=== PATIENT | female | born 1940 | race Two or more races ===

== ENCOUNTER 2024-02-15 12:06 | Emergency (ER) | payer MEDICAID, SELFPAY ==
[2024-02-15 12:07] VITALS: BMI 30.5
--- NOTE | 2024-02-15 12:46 | PC.NURSE ---
Pt was called from the lobby and the front of the ER for initial vitals. NAx1 at 1245.
--- NOTE | 2024-02-15 14:37 | PC.NURSE ---
PT DID NOT ANSWER WHEN NAME WAS CALLED AND WAS NOT FOUND OUTSIDE
--- NOTE | 2024-02-15 15:23 | PC.NURSE ---
PT WAS CALLED IN LOBBY AND OUTSIDE AND NO ANSWER X3.
--- NOTE | 2024-02-16 03:47 | PD.EDADDENDU ---
Emergency Room Addendum Addendum Narrative: Pt eloped prior to being seen by me.
== END 2024-02-15 15:23 | disposition left against medical advice (07) ==
PROVIDERS: Emergency Provider Internal Medicine Critical Care Medicine
DX: Z53.21 Procedure and treatment not carried out due to patient leaving prior to being seen by health care provider (principal)

== ENCOUNTER 2024-06-13 13:58 | Emergency (ER) | payer MEDICARE, MEDICAID, SELFPAY ==
[2024-06-13 14:02] VITALS: BP 136/57; PULSE 99; RESP 16; TEMP 36.7; O2SAT 95
--- NOTE | 2024-06-13 14:09 | PC.NURSE ---
SANDI from home for generalized weakness. She had a GLF 10 days ago and hit her head on coffee table (denies LOC) did not got to hospital for the fall. She has been weak for 2 days with lack of appetite, she states she doesn't have a cough but does cough at times and is productive per EMS. She also has had a right side facial droop x3 weeks PMH: bells palsy HTN, CHF, frequent UTIs EMS Vitals: GCS 15 108 HR 125/64 99 O2 sats on room air 20 RR
[2024-06-13 14:29] VITALS: PULSE 108; RESP 20; BMI 27.4
[2024-06-13] MEDS: SODIUM CHLORIDE 0.9% 500 ML 500 ML 999 ML IV ×2 (15:07→17:08)
[2024-06-13] MEDS: ONDANSETRON INJ 2 MG/ML INJ 2 ML 4 MG IV (15:08)
[2024-06-13 16:02] VITALS: BP 128/66; PULSE 89; RESP 21; TEMP 37; O2SAT 97
[2024-06-13 16:02] LABS: Basophils % (Auto) 0 % (0-2.5); Eosinophils # (Auto) 0.2 Thou/mm3 (0.0-0.5); Eosinophils % (Auto) 2 % (0-10); Hematocrit 36.1 % (36.0-46.0); Hemoglobin 12.5 g/dL (12.0-16.0); Immature Granulocytes % (Auto) 0 % (0-0); Immature Granulocytes Auto 0.04 Thou/mm3 (0.00-0.00); Lymphocytes # (Auto) 1.4 Thou/mm3 (1.0-4.8); Lymphocytes % (Auto) 14 % (10-50); Mean Corpuscular HGB Conc 34.6 g/dl (31.0-37.0); Mean Corpuscular Hemoglobin 31.8 pg (25.0-35.0); Mean Corpuscular Volume 92 fL (80-100); Monocytes # (Auto) 0.7 Thou/mm3 (0.0-0.8); Monocytes % (Auto) 8 % (0-12); Neutrophils # (Auto) 7.3 Thou/mm3 (1.8-7.7); Neutrophils % (Auto) 76 % (37-80); Nucleated Red Blood Cell % 0 /100 WBC (0); Platelet Count 186 Thou/mm3 (140-440); RDW Standard Deviation 41.5 fL (36.4-46.3); Red Blood Count 3.93 Miln/mm3 (4.00-5.20); White Blood Count 9.6 Thou/mm3 (3.6-11.0)
[2024-06-13 16:27] LABS: Alanine Aminotransferase 14 U/L (10-49); Albumin, Serum 3.6 gm/dL (3.4-4.8); Albumin/Globulin Ratio 1.6 (1.2-2.2); Alkaline Phosphatase 83 U/L (46-116); Anion Gap 10 (7-16); Aspartate Amino Transferase 25 U/L (0-34); BUN/Creatinine Ratio 52 Ratio (12-20); Bilirubin,Total 2.2 mg/dL (0.3-1.2); Blood Urea Nitrogen 57 mg/dL (9-23); Calcium 8.7 mg/dL (8.3-10.6); Chloride 100 mMol/L (98-107); Creatinine (Component) 1.1 mg/dL (0.6-1.3); Estimated Creatinine Clearance 38.5 mL/min (>60); Globulin 2.3 gm/dL (2.3-3.5); Glucose 108 mg/dL (74-106); Osmolality,Calculated 299 (275-295); Sodium 142 mMol/L (136-145); Total Protein 5.9 gm/dL (5.7-8.2); eGFR 50 See Note
[2024-06-13 16:33] LABS: Potassium 2.6 mMol/L (3.4-5.1)
[2024-06-13 16:52] LABS: Collection Type, Urine Clean Catch
[2024-06-13 17:03] LABS: Bacteria,Urine 4+; Bilirubin,Urine Negative (Negative); Blood,Urine 1+ (Negative); Color,Urine Yellow (Lt Yel-Yel); Glucose, Urine Negative (Negative); Ketones,Urine Negative (Negative); Leukocyte Esterase,Urine Positive (Negative); Nitrite,Urine Negative (Negative); Protein,Urine Trace (Neg - Trace); RBC,Urine 7 /hpf (0-3); Specific Gravity,Urine 1.016 (1.001-1.035); Squamous Epithelial Cell,Urine 4 /hpf (0-5); WBC,Urine 18 /hpf (0-5)
[2024-06-13 17:04] LABS: Clarity,Urine Hazy (Clear/Hazy)
[2024-06-13] MEDS: POTASSIUM CHLORIDE 20 mEq TABCR 60 MEQ PO (17:07)
[2024-06-13 17:22] LABS: Magnesium 1.8 mg/dL (1.6-2.6)
[2024-06-13 18:14] VITALS: BP 119/67; PULSE 91; RESP 16; TEMP 36.6; O2SAT 94
[2024-06-13] MEDS: cefTRIAXone/D5w 1gm IV premix 50 ML IV (18:30)
--- NOTE | 2024-06-27 03:28 | PD.EDADULT ---
ED General RME/HPI General Chief complaint: General Adult/Misc Complain Stated complaint: GENERALIZED WEAKNESS Time Seen by Provider: 06/13/24 14:32 Arrival date/time: 06/13/24 13:58 RME / HPI RME / HPI narrative: 83-year-old female with history of frequent UTIs who presents to the emergency department with generalized weakness for the last 2 days. She denies fevers chills or sweats. She notes mild nausea without vomiting. She denies diarrhea. She denies dysuria, polyuria or hematuria. She has a chronic cough that is unchanged. She denies sick contact. Patient denies chest pain or shortness of breath. Related Data Home Medications ?Medication ?Instructions ?Recorded ?Confirmed amlodipine 10 mg tablet 10 mg PO DAILY 10/20/21 02/21/24 lisinopril 40 mg tablet 40 mg PO DAILY 10/20/21 02/21/24 ondansetron 4 mg disintegrating 4 mg PO [id number] PRN nausea and 02/21/24 02/21/24 tablet vomiting Previous Rx's ?Medication ?Instructions ?Recorded cetirizine 10 mg tablet 10 mg PO QDAY PRN cough or allergy 03/01/24 symptoms #30 tabs guaifenesin 600 mg tablet, 600 mg PO Q12H PRN cough #30 tabs 03/01/24 extended release 12 hr (Mucinex) cephalexin 500 mg capsule 500 mg PO Q8H #20 caps 06/13/24 ondansetron 4 mg disintegrating 4 mg PO Q8H PRN nausea and 06/13/24 tablet vomiting #10 tabs Allergies Allergy/AdvReac Type Severity Reaction Status Date / Time No Known Allergies Allergy Verified 02/15/24 12:10 Review of Systems Review of Systems Systems Reviewed: All systems reviewed, normal except as documented ED Exam Narrative Physical exam: GENERAL APPEARANCE: AxOx4, generally well-appearing, no acute distress. HEENT: NC, AT. MMM. EOMI, clear conjunctiva, oropharynx clear. NECK: Supple without lymphadenopathy. No stiffness or restricted ROM. HEART: Normal rate and regular rhythm, normal S1/S1, no m/r/g LUNGS: CTAB, moving air well. No crackles or wheezes are heard. ABDOMEN: Soft, nontender, nondistended with good bowel sounds heard. BACK: No midline C/T/L spine pain or deformity, No CVAT, no obvious deformity. EXTREMITIES: Without cyanosis, clubbing or edema. MUSCULOSKELETAL: FROM of all major joints, no chest tenderness NEUROLOGICAL: Grossly nonfocal. Alert and oriented, moving all 4 extremities. CN not formally tested but appear grossly intact. Observed to ambulate with normal gait. Skin: Warm and dry without any rash. Course Quality Measures none Orders Category Date Time Status CBC Stat Lab 06/13/24 15:25 Completed CMP [Comprehensive Metabolic Panel] Stat Lab 06/13/24 15:25 Completed Magnesium Stat Lab 06/13/24 15:25 Completed Urinalysis Stat Lab 06/13/24 16:18 Completed Ondansetron Inj [Zofran Inj] Med 06/13/24 14:49 Discontinued 4 mg IV X1 ONE Potassium Chloride [K-Dur] Med 06/13/24 16:51 Discontinued 60 meq PO X1 ONE Sodium Chloride 0.9% 500 ml [Ns] 500 ml Med 06/13/24 14:49 Discontinued IV 999 mls/hr Sodium Chloride 0.9% 500 ml [Ns] 500 ml Med 06/13/24 16:51 Discontinued IV 999 mls/hr cefTRIAXone/D5w 1gm IV premix [Rocephin/D5w 1gm IV Med 06/13/24 17:39 Discontinued premix] 50 ml IV X1 Vital Signs Vital signs: Vital Signs Temperature 98.0 F 06/13/24 14:02 Pulse Rate 99 06/13/24 14:02 Respiratory Rate 16 06/13/24 14:02 Blood Pressure 136/57 H 06/13/24 14:02 Pulse Oximetry (%) 95 06/13/24 14:02 Oxygen Delivery Method Room Air 06/13/24 14:02 SpO2 95% on room air, patient is not MDM Patient data External records reviewed:: [facility] previous records Clinical information provided by:: patient Social determinants that could affect healthcare access:: none Patient has the following chronic illnesses:: None How is presenting disease/condition affected by chronic disease/condition?: no chronic disease Evaluation data The following diagnostics were reviewed and interpreted by me:: lab results Lab and/or radiology exams considered but not ordered:: None Interpretation Summary: As per narrative Medications Medications considered but not ordered:: None Medication administrations:: Medication Administration History Discontinued Medications Sodium Chloride (Ns) 500 mls @ 999 mls/hr IV .Q31M ONE Stop: 06/13/24 15:19 Last Infusion: 06/13/24 16:16 Dose: Infused Documented By: FRANCISCO J Admin: 06/13/24 15:07 Dose: 999 mls/hr Documented By: Sodium Chloride (Ns) 500 mls @ 999 mls/hr IV .Q31M ONE Stop: 06/13/24 17:21 Last Admin: 06/13/24 17:08 Dose: 999 mls/hr Documented By: FRANCISCO J Ceftriaxone Sodium/Dextrose (Rocephin/D5w 1gm Iv Premix) 50 mls @ 100 mls/hr IV X1 ONE Stop: 06/13/24 18:08 Last Infusion: 06/13/24 19:33 Dose: Infused Documented By: FRANCISCO J Admin: 06/13/24 18:30 Dose: 100 mls/hr Documented By: FRANCISCO J Ondansetron HCl (Ondansetron Inj 2 Mg/Ml Inj 2 Ml) 4 mg IV X1 ONE; Protocol Stop: 06/13/24 14:50 Last Admin: 06/13/24 15:08 Dose: 4 mg Documented By: FRANCISCO J Potassium Chloride (Potassium Chloride 20 Meq Tabcr) 60 meq PO X1 ONE Stop: 06/13/24 16:52 Last Admin: 06/13/24 17:07 Dose: 60 meq Documented By: FRANCISCO J Above Consultations Consultation(s) initiated? (list below): No Diagnosis Differential Diagnosis ED Complaint MDM: Dehydration, acute kidney injury, electrolyte abnormalities, UTI Most likely diagnosis given after review of the tests above:: See below Admission Indicated Admission indicated?: not indicated Explain why admission is indicated or not indicated:: As per narrative Admission Request Was there a request for admission?: No Disposition Plan Disposition Plan: Discharge Discharge Attestation Discharge Attestation: The patient and all family members were given an opportunity to ask questions and understood the discharge instructions. Discharge instructions specifically effects, indications for sooner follow up or return to the emergency department, and the expected course of current diagnosis. Patient condition: Stable Medical Decision Making MDM Narrative MDM Narrative: Ms. Bauer is a clinically well-appearing female with stable vital signs presents with generalized weakness. She does have a history of frequent UTIs without overt urinary symptoms. Given her generalized weakness laboratory testing was sent to assess for possible anemia, electrolyte abnormalities, dehydration, or UTI. Labs are significant for a moderate hypokalemia which required oral repletion here in the emergency department. Urinalysis shows 4+ bacteria and pyuria which should be consistent with a UTI. I suspect her generalized weakness is a combination of her hypokalemia and her urinary tract infection. Patient was given IV fluids in the emergency department and first dose of antibiotics for urinary tract infection. She remained clinically stable here in the emergency department, resting comfortably with stable vital signs are appropriate for outpatient treatment and close follow-up. Differential Diagnosis Differential Diagnosis: Dehydration, acute kidney injury, electrolyte abnormalities, UTI Lab Data 06/13/24 15:25 06/13/24 15:25 Labs: Lab Results 06/13/24 06/13/24 Range/Units 15:25 16:18 WBC 9.6 (3.6-11.0) Thou/mm3 RBC 3.93 L (4.00-5.20) Miln/mm3 Hgb 12.5 (12.0-16.0) g/dL Hct 36.1 (36.0-46.0) % MCV 92 (80-100) fL MCH 31.8 (25.0-35.0) pg MCHC 34.6 (31.0-37.0) g/dl RDW Std Deviation 41.5 (36.4-46.3) fL Plt Count 186 (140-440) Thou/mm3 Neut % (Auto) 76 (37-80) % Lymph % (Auto) 14 (10-50) % [place] % (Auto) 8 (0-12) % Eos % (Auto) 2 (0-10) % Baso % (Auto) 0 (0-2.5) % Neut # (Auto) 7.3 (1.8-7.7) Thou/mm3 Lymph # (Auto) 1.4 (1.0-4.8) Thou/mm3 [place] # (Auto) 0.7 (0.0-0.8) Thou/mm3 Eos # (Auto) 0.2 (0.0-0.5) Thou/mm3 Baso # (Auto) 0.0 (0.0-0.2) Thou/mm3 Immature Gran # (Auto) 0.04 H (0.00-0.00) Thou/mm3 Absolute Nucleated RBC 0.00 (0.00-0.00) Thou/mm3 Immature Gran % 0 (0-0) % Nucleated RBC % 0 (0) /100 WBC Sodium 142 (136-145) mMol/L Potassium 2.6 L* (3.4-5.1) mMol/L Chloride 100 (98-107) mMol/L Carbon Dioxide 32.0 H (20.0-31.0) mMol/L Anion Gap 10 (7-16) BUN 57 H (9-23) mg/dL Creatinine 1.1 (0.6-1.3) mg/dL Estim Creat Clear Calc 38.5 L (>60) mL/min eGFR 50 L (60 - ) See Note BUN/Creatinine Ratio 52 H (12-20) Ratio Glucose 108 H (74-106) mg/dL Calculated Osmolality 299 H (275-295) Calcium 8.7 (8.3-10.6) mg/dL Corrected Calcium 9.0 (8.5-10.1) mg/dL Magnesium 1.8 (1.6-2.6) mg/dL Total Bilirubin 2.2 H (0.3-1.2) mg/dL AST 25 (0-34) U/L ALT 14 (10-49) U/L Alkaline Phosphatase 83 (46-116) U/L Total Protein 5.9 (5.7-8.2) gm/dL Albumin 3.6 (3.4-4.8) gm/dL Globulin 2.3 (2.3-3.5) gm/dL Albumin/Globulin Ratio 1.6 (1.2-2.2) Ur Collection Type Clean Catch Urine Color Yellow (Lt Yel-Yel) Urine Clarity Hazy (Clear/Hazy) Urine pH 6.0 (5.0-7.0) Ur Specific [place] 1.016 (1.001-1.035) Urine Protein Trace (Neg - Trace) Urine Glucose (UA) Negative (Negative) Urine Ketones Negative (Negative) Urine Blood 1+ A (Negative) Urine Nitrite Negative (Negative) Urine Bilirubin Negative (Negative) Urine Urobilinogen (Auto) 2.0 (0.0-1.0) mg/dL Ur Leukocyte Esterase Positive (Negative) Urine RBC 7 H (0-3) /hpf Urine WBC 18 H (0-5) /hpf Ur Squamous Epith Cells 4 (0-5) /hpf Urine Bacteria 4+ A (None) Discharge Plan Plan Patient Disposition: HOME (Self Care) Prescriptions/Referrals Prescriptions/Med Rec: New cephalexin 500 mg capsule 500 mg PO Q8H Qty: 20 0RF ondansetron 4 mg tablet,disintegrating 4 mg PO Q8H PRN (Reason: nausea and vomiting) Qty: 10 0RF No Action amlodipine 10 mg tablet 10 mg PO DAILY Patient Comments: TAKE 1 TABLET BY MOUTH DAILY lisinopril 40 mg tablet 40 mg PO DAILY Hold Instructions: Resume on 03/04/24. Hold until follow up with PCP Patient Comments: TAKE 1 TABLET BY MOUTH EVERY MORNING ondansetron 4 mg tablet,disintegrating 4 mg PO [id number] PRN (Reason: nausea and vomiting) cetirizine 10 mg tablet 10 mg PO QDAY PRN (Reason: cough or allergy symptoms) Qty: 30 0RF guaifenesin [Mucinex] 600 mg tablet extended release 12hr 600 mg PO Q12H PRN (Reason: cough) Qty: 30 0RF Referrals: Kurt Woody MD [Primary Care Provider] - In 1 week Problem List Clinical Impression: Acute UTI, Dehydration Patient/Caregiver Discharge Instructions Education Materials: ED CYSTITIS Female Adult Additional Instructions: Follow-up with your primary care doctor in 2 to 3 days for recheck. You can return to the emergency department sooner if symptoms worsen or if you notice any new, concerning issues. Print Language: Japanese Stand Alone Forms: [facility] Info., Patient Portal Info Letter
== END 2024-06-13 19:36 | disposition home or self-care (01) ==
PROVIDERS: Emergency Provider Emergency Medicine; PCP Family Medicine
DX: E86.0 Dehydration (principal); N39.0 Urinary tract infection, site not specified
CPT/HCPCS: 36415; 80053; 81001; 83735; 85025; 96361; 96365; 96375; 99284; J0696; J2405; J7040; A9270

== ENCOUNTER 2024-09-04 21:29 | Emergency (ER) | payer MEDICARE, MEDICAID, SELFPAY ==
[2024-09-04 21:37] VITALS: PULSE 65; RESP 16; O2SAT 94; BMI 25.4
[2024-09-04 21:39] VITALS: BP 157/81; PULSE 101; RESP 18; TEMP 37.1; O2SAT 94; BMI 25.7
--- NOTE | 2024-09-04 21:47 | PD.EDURI ---
Upper Respiratory Inf. RME/HPI General Chief Complaint: Flu Like Symptoms Stated Complaint: ILLNESS/WEAKNESS Time Seen by Provider: 09/04/24 21:46 Arrival date/time: 09/04/24 21:29 RME / HPI RME / HPI Narrative: This section includes all my notes and documentations, including HPI, PE, and ED course. Scar Ramsey MD HPI: 84-year-old female here with about a week history of worsening cough, productive cough, purulent sputum, and dyspnea. With subjective fever and chills and bodyaches and malaise. No chest pain. No other complaints. ROS: All negative except as documented in HPI. Physical Exam: General: Alert and oriented. Hacking cough noted. Eyes: Conjunctivae and lids clear. ENT: No nasal congestion. Neck: Supple. Heart: RRR. Lungs: No respiratory distress. Moderately decreased air movement with bilateral rhonchi and bilateral rails. Abdomen: Soft and nontender. Back: No CVA tenderness. Skin: Warm and dry. Neuro: Alert and oriented X 3. I reviewed all diagnostic test results. My interpretation of the chest x-ray is bilateral infiltrates. Blood tests and urine tests remarkable for BNP 617. COVID/influenza negative. At this point, diagnoses include pneumonia with acute bronchospasm and CHF. Treatment here included Solu-Medrol, DuoNeb, Lasix, morphine, Zofran, IV fluid, Rocephin, and Zithromax. Significant improvement noted. Recommended a trial of outpatient treatment. Based on my best medical judgment, made decision no further evaluation or treatment indicated at this time. Patient understands and agrees to the discharge instructions customized and printed, see below. Discharge instructions from Dr. Ramsey: --No physical exertion for 3 days to help rest the lungs. ?No smoking or exposure to smoking or pets or dust or cold air. --Zithromax and cefdinir to kill the germs causing the pneumonia. --Prednisone to help decrease the swelling in the airways. --Albuterol 2 puffs every 4-6 hours today and tomorrow to help keep the airways open. Then as needed for cough or shortness of breath. --Maximum 4 cups of any fluid per 24 hours for 3 full days. For the fluid in your lungs. --See a private doctor on 09/07/2024 for recheck and further care. Ask for help until you are completely better. --Seek immediate medical care with worsening or with any concerns. Instrucciones de casey del Dr. Ramsey: -- No realice esfuerzo f?sico sachin 3 d?as para ayudar a los pulmones a descansar. -- No fume ni se exponga al humo, a mascotas, al polvo ni al aire fr?o. -- Zitromax y cefdinir para eliminar los g?rmenes que causan la neumon?a. -- Prednisona para ayudar a disminuir la inflamaci?n de las v?as respiratorias. -- Albuterol: 2 inhalaciones cada 4 a 6 horas hoy y ma?silvana para ayudar a mantener las v?as respiratorias abiertas. Luego, seg?n sea necesario para la tos o la dificultad para respirar. -- M?ximo 4 vasos de cualquier l?quido cada 24 horas sachin 3 d?as completos. Para el l?quido en los pulmones. -- Consulte con un m?dico particular el 07/09/2024 para angelina revisi?n y cuidados adicionales. [place] ayuda hasta que se recupere por completo. -- Busque atenci?n m?dica inmediata si king estado empeora o tiene alguna inquietud. Scar Ramsey MD Related Data Home Medications ?Medication ?Instructions ?Recorded ?Confirmed amlodipine 10 mg tablet 10 mg PO DAILY 10/20/21 02/21/24 lisinopril 40 mg tablet 40 mg PO DAILY 10/20/21 02/21/24 Held on 02/26/24. Instructions: Resume on 03/04/24. Hold until follow up with PCP ondansetron 4 mg disintegrating 4 mg PO [id number] PRN nausea and 02/21/24 02/21/24 tablet vomiting Previous Rx's ?Medication ?Instructions ?Recorded cetirizine 10 mg tablet 10 mg PO QDAY PRN cough or allergy 03/01/24 symptoms #30 tabs guaifenesin 600 mg tablet, 600 mg PO Q12H PRN cough #30 tabs 03/01/24 extended release 12 hr (Mucinex) cephalexin 500 mg capsule 500 mg PO Q8H #20 caps 06/13/24 ondansetron 4 mg disintegrating 4 mg PO Q8H PRN nausea and 06/13/24 tablet vomiting #10 tabs albuterol sulfate 90 mcg/actuation 2 puff inhalation Q6H PRN 09/05/24 aerosol inhaler shortness of breath or wheezing #8.5 grams cefdinir 300 mg capsule 300 mg PO BID #14 caps 09/05/24 prednisone 50 mg tablet 50 mg PO QDAY #3 tabs 09/05/24 Allergies Allergy/AdvReac Type Severity Reaction Status Date / Time No Known Allergies Allergy Verified 02/15/24 12:10 Course Quality Measures none Orders Category Date Time Status Bedside COVID-19 Antigen Test NOW Care 09/04/24 21:51 Completed Bedside Influenza A&B Antigen Test NOW Care 09/04/24 21:51 Completed Saline [Insert IV] NOW Care 09/04/24 21:51 Completed Straight [In and Out Catheter] X1 Care 09/04/24 21:51 Completed XR chest 1V portable Stat Exams 09/04/24 21:51 Completed Amylase Stat Lab 09/04/24 22:16 Completed BNP [B-Type Natriuretic Peptide] Stat Lab 09/04/24 22:35 Completed CBC Stat Lab 09/04/24 22:16 Completed CMP [Comprehensive Metabolic Panel] Stat Lab 09/04/24 22:16 Completed Lipase Stat Lab 09/04/24 22:16 Completed Magnesium Stat Lab 09/04/24 22:16 Completed UA, C/S IF [Urinalysis, C/S if Indicated] Stat Lab 09/04/24 22:40 Completed Albuterol/Ipratr Rt Ciarra [Duoneb Rt Ciarra] Med 09/04/24 21:51 Discontinued 3 ml INH X1 ONE Azithromycin Inj [Zithromax Inj] 500 mg Med 09/04/24 23:50 Discontinued Sodium Chloride 0.9% 250 ml [Ns] 250 ml IV X1 Azithromycin Po [Zithromax PO] Med 09/05/24 01:10 Discontinued 500 mg PO X1 ONE Furosemide Inj [Lasix Inj] Med 09/05/24 01:03 Discontinued 40 mg IVP X1 ONE MethylPREDNISolone.* [SoluMEDROL Inj] Med 09/04/24 21:51 Discontinued 125 mg IVP X1 ONE Morphine Inj Med 09/04/24 21:51 Discontinued 2 mg IVP X1 ONE Ondansetron Inj [Zofran Inj] Med 09/04/24 21:51 Discontinued 4 mg IV X1 ONE Sodium Chloride 0.9% 1000 ml [Ns] 1,000 ml Med 09/04/24 21:51 Discontinued IV 999 mls/hr cefTRIAXone [Rocephin] 1,000 mg Med 09/04/24 23:50 Discontinued SODIUM CHLORIDE 0.9% (Popper) [Ns 0.9% (P)] 50 ml IV X1 Vital Signs Vital signs: Vital Signs Temperature 98.7 F 09/04/24 21:39 Pulse Rate 101 H 09/04/24 21:39 Respiratory Rate 18 09/04/24 21:39 Blood Pressure 157/81 H 09/04/24 21:39 Pulse Oximetry (%) 94 L 09/04/24 21:39 Oxygen Delivery Method Room Air 09/04/24 21:39 Upper Respiratory Infection Patient data External records reviewed:: [facility] previous records Clinical information provided by:: patient Social determinants that could affect healthcare access:: none Patient has the following chronic illnesses:: CHF How is presenting disease/condition affected by chronic disease/condition?: exacerbated by Evaluation data The following diagnostics were reviewed and interpreted by me:: lab results and radiology exam(s) Lab and/or radiology exams considered but not ordered:: None Interpretation Summary: Pneumonia Medications / Prescriptions Medications or Prescriptions considered but not ordered:: None Medication administrations:: Medication Administration History Discontinued Medications Albuterol/Ipratropium (Albuterol/Ipratropium (Duoneb) Rt Ciarra 3 Ml Nebu) 3 ml INH X1 ONE Stop: 09/04/24 21:52 Last Admin: 09/04/24 22:15 Dose: 3 ml Documented By: TMH Azithromycin (Azithromycin 250 Mg Tablet) 500 mg PO X1 ONE Stop: 09/05/24 01:11 Last Admin: 09/05/24 01:19 Dose: 500 mg Documented By: CCT Furosemide (Furosemide Inj 10 Mg/Ml 4ml Vial) 40 mg IVP X1 ONE Stop: 09/05/24 01:04 Last Admin: 09/05/24 01:19 Dose: 40 mg Documented By: CCT Sodium Chloride (Ns) 1,000 mls @ 999 mls/hr IV .Q1H1M ONE Stop: 09/04/24 22:51 Last Admin: 09/04/24 22:41 Dose: Not Given Documented By: EE Non-Admin Reason: Cancelled by Provider Ceftriaxone Sodium 1,000 mg/ (Sodium Chloride) 50 mls @ 100 mls/hr IV X1 ONE Stop: 09/05/24 00:19 Last Infusion: 09/05/24 01:05 Dose: Infused Documented By: Admin: 09/05/24 00:34 Dose: 100 mls/hr Documented By: CCT Azithromycin 500 mg/ Sodium (Chloride) 250 mls @ 250 mls/hr IV X1 ONE Stop: 09/05/24 00:49 Last Admin: 09/05/24 01:13 Dose: Not Given Documented By: CCT Non-Admin Reason: Cancelled by Provider Methylprednisolone Sodium Succinate (Methylprednisolone Sod Succ 62.5 Mg/Ml 2ml Vial) 125 mg IVP X1 ONE Stop: 09/04/24 21:52 Last Admin: 09/04/24 22:42 Dose: 125 mg Documented By: EE Morphine Sulfate (Morphine Sulf Inj 10 Mg/Ml Vial) 2 mg IVP X1 ONE Stop: 09/04/24 21:52 Last Admin: 09/04/24 22:43 Dose: 2 mg Documented By: EE Ondansetron HCl (Ondansetron Inj 2 Mg/Ml Inj 2 Ml) 4 mg IV X1 ONE; Protocol Stop: 09/04/24 21:52 Last Admin: 09/04/24 22:42 Dose: 4 mg Documented By: EE Treatment here included Solu-Medrol, DuoNeb, Lasix, morphine, Zofran, IV fluid, Rocephin, and Zithromax. Consultations Consultation(s) initiated? (list below): No Diagnosis Upper Respiratory Differential Diagnosis: upper respiratory infection, sinusitis, viral infection, bronchitis, influenza and other (COVID, influenza, CHF, pneumonia) Most likely diagnosis given after review of the tests above:: Pneumonia Admission Indicated Admission indicated?: not indicated Explain why admission is indicated or not indicated:: With significant improvement, there was no indication for admission. Admission Request Was there a request for admission?: No Disposition Plan Disposition Plan: Discharge Discharge Attestation Discharge Attestation: The patient and all family members were given an opportunity to ask questions and understood the discharge instructions. Discharge instructions specifically effects, indications for sooner follow up or return to the emergency department, and the expected course of current diagnosis. Patient condition: Stable Discharge Plan Plan Patient Disposition: HOME (Self Care) Prescriptions/Referrals Prescriptions/Med Rec: New prednisone 50 mg tablet 50 mg PO QDAY Qty: 3 0RF albuterol sulfate 90 mcg/actuation HFA aerosol inhaler 2 puff inhalation Q6H PRN (Reason: shortness of breath or wheezing) Qty: 8.5 0RF cefdinir 300 mg capsule 300 mg PO BID Qty: 14 0RF No Action amlodipine 10 mg tablet 10 mg PO DAILY Patient Comments: TAKE 1 TABLET BY MOUTH DAILY lisinopril 40 mg tablet 40 mg PO DAILY Patient Comments: TAKE 1 TABLET BY MOUTH EVERY MORNING ondansetron 4 mg tablet,disintegrating 4 mg PO [id number] PRN (Reason: nausea and vomiting) cetirizine 10 mg tablet 10 mg PO QDAY PRN (Reason: cough or allergy symptoms) Qty: 30 0RF guaifenesin [Mucinex] 600 mg tablet extended release 12hr 600 mg PO Q12H PRN (Reason: cough) Qty: 30 0RF cephalexin 500 mg capsule 500 mg PO Q8H Qty: 20 0RF ondansetron 4 mg tablet,disintegrating 4 mg PO Q8H PRN (Reason: nausea and vomiting) Qty: 10 0RF Referrals: Kurt Woody MD [Primary Care Provider] - In 1 week Problem List Clinical Impression: Pneumonia Patient/Caregiver Discharge Instructions Discharge Activity: activity as tolerated Education Materials: ED Pneumonia (Adult) Additional Instructions: Discharge instructions from Dr. Ramsey: --No physical exertion for 3 days to help rest the lungs. ?No smoking or exposure to smoking or pets or dust or cold air. --Zithromax and cefdinir to kill the germs causing the pneumonia. --Prednisone to help decrease the swelling in the airways. --Albuterol 2 puffs every 4-6 hours today and tomorrow to help keep the airways open. Then as needed for cough or shortness of breath. --Maximum 4 cups of any fluid per 24 hours for 3 full days. For the fluid in your lungs. --See a private doctor on 09/07/2024 for recheck and further care. Ask for help until you are completely better. --Seek immediate medical care with worsening or with any concerns. Instrucciones de casey del Dr. Ramsey: -- No realice esfuerzo f?sico sachin 3 d?as para ayudar a los pulmones a descansar. -- No fume ni se exponga al humo, a mascotas, al polvo ni al aire fr?o. -- Zitromax y cefdinir para eliminar los g?rmenes que causan la neumon?a. -- Prednisona para ayudar a disminuir la inflamaci?n de las v?as respiratorias. -- Albuterol: 2 inhalaciones cada 4 a 6 horas hoy y ma?silvana para ayudar a mantener las v?as respiratorias abiertas. Luego, seg?n sea necesario para la tos o la dificultad para respirar. -- M?ximo 4 vasos de cualquier l?quido cada 24 horas sachin 3 d?as completos. Para el l?quido en los pulmones. -- Consulte con un m?dico particular el 07/09/2024 para angelina revisi?n y cuidados adicionales. [place] ayuda hasta que se recupere por completo. -- Busque atenci?n m?dica inmediata si king estado empeora o tiene alguna inquietud. Print Language: Faroese Stand Alone Forms: [facility] Award Info., Patient Portal Info Letter
--- NOTE | 2024-09-04 21:51 | XR_ITS ---
Examination: AP chest single view TECHNIQUE: AP portable upright chest single view Standing time: September 04, 2024 0907 hours INDICATIONS: Shortness of breath today. FINDINGS: Mild prominence left ventricle Prominent vascular congestion Bibasilar pneumonia The osseous structures are intact with small probable granulomas in the upper lung zones IMPRESSION: Mild heart failure Mild bibasilar pneumonia
[2024-09-04] MEDS: ALBUTEROL/IPRATROPIUM (Duoneb) RT SOL 3 ML NEBU INH (22:15)
[2024-09-04 22:16] VITALS: PULSE 102; RESP 18; O2SAT 98
[2024-09-04 22:28] LABS: Basophils % (Auto) 0 % (0-2.5); Eosinophils % (Auto) 0 % (0-10); Hematocrit 33.5 % (36.0-46.0); Hemoglobin 11.4 g/dL (12.0-16.0); Immature Granulocytes % (Auto) 1 % (0-0); Lymphocytes # (Auto) 1.4 Thou/mm3 (1.0-4.8); Lymphocytes % (Auto) 15 % (10-50); Mean Corpuscular Hemoglobin 31.8 pg (25.0-35.0); Mean Corpuscular Volume 94 fL (80-100); Monocytes # (Auto) 1.2 Thou/mm3 (0.0-0.8); Monocytes % (Auto) 13 % (0-12); Neutrophils # (Auto) 6.6 Thou/mm3 (1.8-7.7); Neutrophils % (Auto) 71 % (37-80); Nucleated Red Blood Cell % 0 /100 WBC (0); Platelet Count 227 Thou/mm3 (140-440); RDW Standard Deviation 45.6 fL (36.4-46.3); Red Blood Count 3.58 Miln/mm3 (4.00-5.20); White Blood Count 9.3 Thou/mm3 (3.6-11.0)
[2024-09-04] MEDS: MethylPREDNISolone SOD SUCC 62.5 MG/ML 2ML VIAL 125 MG IVP (22:42)
[2024-09-04] MEDS: ONDANSETRON INJ 2 MG/ML INJ 2 ML 4 MG IV (22:42)
[2024-09-04] MEDS: MORPHINE SULF INJ 10 MG/ML VIAL 2 MG IVP (22:43)
[2024-09-04 22:47] VITALS: BP 170/103; PULSE 100; RESP 19; TEMP 36.4; O2SAT 94
[2024-09-04 22:55] LABS: Collection Type, Urine Clean Catch
[2024-09-04 23:03] LABS: Alanine Aminotransferase 8 U/L (10-49); Albumin, Serum 3.7 gm/dL (3.4-4.8); Albumin/Globulin Ratio 1.4 (1.2-2.2); Alkaline Phosphatase 81 U/L (46-116); Amylase 54 U/L (30-118); Anion Gap 11 (7-16); Aspartate Amino Transferase 22 U/L (0-34); BUN/Creatinine Ratio 37 Ratio (12-20); Bilirubin,Total 1.4 mg/dL (0.3-1.2); Blood Urea Nitrogen 41 mg/dL (9-23); Calcium 9.3 mg/dL (8.3-10.6); Calcium (Corrected) 9.5 mg/dL (8.5-10.1); Carbon Dioxide 26.9 mMol/L (20.0-31.0); Chloride 104 mMol/L (98-107); Creatinine (Component) 1.1 mg/dL (0.6-1.3); Estimated Creatinine Clearance 36.7 mL/min (>60); Globulin 2.6 gm/dL (2.3-3.5); Glucose 116 mg/dL (74-106); Lipase 34 U/L (12-53); Magnesium 1.9 mg/dL (1.6-2.6); Osmolality,Calculated 294 (275-295); Potassium 3.7 mMol/L (3.4-5.1); Sodium 142 mMol/L (136-145); Total Protein 6.3 gm/dL (5.7-8.2); eGFR 50 See Note
[2024-09-04 23:05] LABS: Bilirubin,Urine Negative (Negative); Blood,Urine 3+ (Negative); Clarity,Urine Clear (Clear/Hazy); Color,Urine Yellow (Lt Yel-Yel); Culture Indicated,Urine Not Indicated; Glucose, Urine Negative (Negative); Ketones,Urine Negative (Negative); Leukocyte Esterase,Urine Negative (Negative); Nitrite,Urine Negative (Negative); PH,Urine 5.5 (5.0-7.0); Protein,Urine 2+ (Neg - Trace); RBC,Urine 65 /hpf (0-3); Specific Gravity,Urine 1.019 (1.001-1.035); Squamous Epithelial Cell,Urine < 1 /hpf (0-5); Urobilinogen,Urine Negative mg/dL (0.0-1.0); WBC,Urine 3 /hpf (0-5)
[2024-09-05] VITALS: BP 153/75; PULSE 96; RESP 20; TEMP 36.6; O2SAT 94
[2024-09-05 00:28] LABS: B-Type Natriuretic Peptide 617 pg/mL (0-100)
[2024-09-05] MEDS: cefTRIAXone 1,000 MG in SODIUM CHLORIDE 0.9% (Popper) 50 ML 100 MG IV (00:34)
[2024-09-05 01:19] VITALS: BP 158/83; PULSE 99
[2024-09-05] MEDS: FUROSEMIDE INJ 10 MG/ML 4ML VIAL 40 MG IVP (01:19)
[2024-09-05] MEDS: AZITHROMYCIN 250 MG TABLET 500 MG PO (01:19)
[2024-09-05 01:35] VITALS: BP 153/78; PULSE 97; RESP 20; TEMP 36.6; O2SAT 94
== END 2024-09-05 01:35 | disposition home or self-care (01) ==
PROVIDERS: Emergency Provider Emergency Medicine; PCP Family Medicine
DX: J18.9 Pneumonia, unspecified organism (principal)
CPT/HCPCS: 51701; 36415; 71045; 80053; 81001; 82150; 83690; 83735; 83880; 85025; 87400; 87811; 94640; 96365; 96375; 99284; A9270; J0696; J1940; J2270; J2405; J2919; J7050

== ENCOUNTER 2024-10-25 18:58 | Inpatient (IN) | payer MEDICARE, MEDICAID, SELFPAY ==
[2024-10-25 19:04] VITALS: BP 96/56; PULSE 66; RESP 16; TEMP 36.4; O2SAT 96
--- NOTE | 2024-10-25 19:04 | XR_ITS ---
Examination: CT brain head without contrast. 2-D sagittal coronal reconstructions Date and time of exam:October 25, 2024 1931 hours INDICATIONS: Ground-level fall today with injury to the head head pain CTDI: vol (mGy):52 DLP: (mGycm):1080 Technique: Multiple CT axial sections of the brain have been obtained, 5 mm slice thickness. Contrast has not been administered. 2-D sagittal, coronal reconstructions have been obtained Low dose protocols were performed. One or more of the following dose reduction techniques were used; automated exposure control, adjustment of the mA and/or KV according to patient size, use of iterative reconstruction technique. Findings: No significant ventricular enlargement. Intra-axial or extra-axial hemorrhage density is not seen. No mass effect or midline shift Basal cisterns are not remarkable. Fourth ventricle is midline. Cranial vault intact. Impression: Negative for acute hemorrhage, mass effect or midline shift
--- NOTE | 2024-10-25 19:04 | XR_ITS ---
Examination: CT cervical spine without contrast 2-D sagittal reconstructions 2-D coronal reconstructions 3-D reconstructions. Exam date and time:October 25, 2024 1931 hours INDICATIONS: Ground-level fall today with injury to the neck, neck pain CTDI:vol (mGy) 8.12 DLP: (mGycm) 160 Technique: Multiple 2 mm axial sections of the cervical spine have been obtained. The coronal and sagittal reconstructions have been obtained. 3-D reconstructions have been obtained. Low dose protocols were performed. One or more of the following dose reduction techniques were used; automated exposure control, adjustment of the mA and/or KV according to patient size, use of iterative reconstruction technique. Findings: Axial sections demonstrate intact base of the skull. C1 exhibit satisfactory relationship to the odontoid. No acute cervical vertebral body fracture seen. Alignment posterior spinous processes satisfactory. Impression: No acute cervical fracture.
--- NOTE | 2024-10-25 19:05 | EDNOTE_ITS ---
ED General RME/HPI General Chief complaint: Weakness Stated complaint: WEAKNESS Time Seen by Provider: 10/25/24 19:03 Arrival date/time: 10/25/24 18:58 CC: Generalized weakness HPI status post fall 2 weeks ago patient denies fever chills chest pain shortness of breath or difficulty breathing. 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 Patient is awake alert oriented hard of hearing with no specific complaints stating that she fell 2 weeks ago after losing her balance denies LOC or ALOC. EMS report heart rate in the 60s has a history of hypertension otherwise stable vital signs. Related Data Home Medications ?Medication ?Instructions ?Recorded ?Confirmed amlodipine 10 mg tablet 10 mg PO DAILY 10/20/2101/06 lisinopril 40 mg tablet 40 mg PO DAILY 10/20/2101/06 Held on 02/26/24. Instructions: Resume on 03/04/24. Hold until follow up with PCP ondansetron 4 mg disintegrating 4 mg PO [id number] PRN na usea and 02/21/24 02/21/24 tablet vomiting Previous Rx's ?Medication ?Instructions ?Recorded cetirizine 10 mg tablet 10 mg PO QDAY PRN cough or a llergy 03/01/24 symptoms #30 tabs guaifenesin 600 mg tablet, 600 mg PO Q12H PRN cough #3 0 tabs 03/01/24 extended release 12 hr (Mucinex) cephalexin 500 mg capsule 500 mg PO Q8H #20 caps 06/13 ondansetron 4 mg disintegrating 4 mg PO Q8H PRN nausea and 06/13/24 tablet vomiting #10 tabs albuterol sulfate 90 mcg/actuation 2 puff inhalation Q 6H PRN 09/05/24 aerosol inhaler shortness of breath or wheez ing #8.5 grams cefdinir 300 mg capsule 300 mg PO BID #14 caps 09/05 prednisone 50 mg tablet 50 mg PO QDAY #3 tabs Allergies Allergy/AdvReac Type Severity Reaction Status Date / Time No Known Allergies Allergy Verified 10/25/24 19:12 Review of Systems Review of Systems Narrative Review of Systems: GEN: No fever, no chills, no weight loss EYES: No discharge, no visual changes, no pain HEENT: No ear pain, no congestion, no sore throat PULM: No shortness of breath, no cough, no congestion CV: No chest pain, no dyspnea on exertion, no palpitations GI: No nausea, no vomiting, no diarrhea, no pain, no constipation : No frequency, no urgency, no dysuria MUSC/SKEL: No joint pain, no back pain SKIN: No rash PSYCH: No hallucinations, no depression HEME/LYMPH: No easy bleeding or bruising tendencies NEURO: + weakness, no headache Past Medical History Past Medical History NEUROLOGIC: Negative Neurological Disorders CARDIAC: Positive Cardiac Disorders and Hypertension; Negative Congestive Heart Failure RESPIRATORY: Negative Chronic Obstructive Pulmonary Disease (COPD) GASTROINTESTINAL: Negative Gastrointestinal Disorders GENITOURINARY: Negative Genitourinary Disorders or Renal Disease REPRODUCTIVE: Negative Pelvic Inflammatory Disease MUSCULOSKELETAL: Negative Musculoskeletal Disorders ENDOCRINE: Negative Endocrine Disorders, Diabetes Mellitus Type 1 or Diabetes Mellitus Type 2 HEMATOLOGIC: Negative Blood Disorders Social History SMOKING STATUS: Never smoker ED Exam Narrative Physical exam: [General: Obese but appears not in any acute distress Head normocephalic HEENT: Within acceptable limits Neck is supple nontender Chest equal chest rise nontender to palpation Respiratory: Clear to auscultation no wheezes crackles or rubs CV: Rate rhythm is regular no murmurs rubs or clicks Abdomen is distended secondary to body habitus soft nontender no masses positive bowel sounds all 4 quadrants Back: No CVA tenderness no spinous process tenderness from cervical spine thoracic and lumbar spine Skin: Intact no petechiae rash induration ulceration or crepitus Extremities: Moving all extremity against resistance cap refill less than 2 seconds neurosensory intact. No lower extremity edema. Neuro: Awake alert oriented x3 Glascow coma 15 no focal deficits] Course Course Course Narrative: Patient has a dirty catch UTI that we will treat empirically, but the patient also has significant worsening of debris in her creatinine. Patient's case discussed with Dr. Sutherland. Discussed with the patient's daughter at bedside who states the patient needs placement after patient's kidneys have been restored as the patient can no long er be managed at home by family members. Quality Measures none Orders Category Date Time Status EKG (ED ONLY) *Do not use* NOW Care 10/25/24 19:04 Completed IV [Insert IV] STAT Care 10/25/24 19:[address] cervical spine wo con Stat Exams 10/25/24 19:[address] head/brain wo con Stat Exams 10/25/24 19:04 Completed EKG (ED Only) Stat Exams 10/25/24 19:04 Ordered XR chest 1V Stat Exams 10/25/24 20:30 Ordered B-Type Natriuretic Peptide Stat Lab 10/25/24 19:22 Completed CBC Stat Lab 10/25/24 19:22 Completed Comprehensive Metabolic Panel Stat Lab 10/25/24 19:22 Completed Drug Screen,Urine Stat Lab 10/25/24 19:54 Completed LDH (Lactate Dehydrogenase) Stat Lab 10/25/24 19:22 Completed Magnesium Stat Lab 10/25/24 19:22 Completed Partial Thromboplastin Time Stat Lab 10/25/24 19:22 Completed Prothrombin Time with INR Stat Lab 10/25/24 19:22 Completed Troponin I Stat Lab 10/25/24 19:22 Completed Urinalysis Stat Lab 10/25/24 19:54 Completed cefTRIAXone/D5w 1gm IV premix [Rocephin/D5w 1gm IV Med 10/25/24 20:20 Active premix] 1 gm in 50 ml IV X1 Vital Signs Vital signs: Vital Signs Temperature 97.6 F 10/25/24 19:04 Pulse Rate 66 10/25/24 19:04 Respiratory Rate 16 10/25/24 19:04 Blood Pressure 96/56 L 10/25/24 19:04 Pulse Oximetry (%) 96 10/25/24 19:04 Oxygen Delivery Method Room Air 10/25/24 19:04 Discharge Plan Plan Patient Disposition: Other Care w/in Hosp ([facility]) Patient condition on transfer: Stable Prescriptions/Referrals Prescriptions/Med Rec: No Action amlodipine 10 mg tablet 10 mg PO DAILY Patient Comments: TAKE 1 TABLET BY MOUTH DAILY lisinopril 40 mg tablet 40 mg PO DAILY Patient Comments: TAKE 1 TABLET BY MOUTH EVERY MORNING ondansetron 4 mg tablet,disintegrating 4 mg PO [id number] PRN (Reason: nausea and vomiting) cetirizine 10 mg tablet 10 mg PO QDAY PRN (Reason: cough or allergy symptoms) Qty: 30 0RF guaifenesin [Mucinex] 600 mg tablet extended release 12hr 600 mg PO Q12H PRN (Reason: cough) Qty: 30 0RF cephalexin 500 mg capsule 500 mg PO Q8H Qty: 20 0RF ondansetron 4 mg tablet,disintegrating 4 mg PO Q8H PRN (Reason: nausea and vomiting) Qty: 10 0RF prednisone 50 mg tablet 50 mg PO QDAY Qty: 3 0RF albuterol sulfate 90 mcg/actuation HFA aerosol inhaler 2 puff inhalation Q6H PRN (Reason: shortness of breath or wheezing) Qty: 8.5 0RF cefdinir 300 mg capsule 300 mg PO BID Qty: 14 0RF Referrals: Kurt Woody MD [Primary Care Provider] - In 1 week Problem List Clinical Impression: JANEY (acute kidney injury), UTI (urinary tract infection) Patient/Caregiver Discharge Instructions Print Language: Kiswahili Stand Alone Forms: Paz Award Info., Patient Portal Info Letter PA/KANG Supervising Physician FAVIOLA/KANG Supervising Physician: Yasir Levin ENP [facility] Clinical Information Provided by: patient and EMS Medical Records reviewed [facility] and EMS Meds/Rx considered, not ordered None Labs/Rad/Tests considered, not ordered None Chronic Illness/Social Conditions Explain: Hypertension EKG Interpretation EKG #1: EKG Interpretation: EKG performed at 1911 shows a ventricular rate of 70 QRS of 96 QTc of 442 shows atrial fibrillation. When compared to an old EKG of February 2024 that was a sinus bradycardia this is a new finding for atrial fibrillation. Labs Labs: Interpreted by me Lab(s) Interpretation(s): CBC shows no acute leukocytosis she has a stable anemia at 9.5 and 26.5 respectively platelets at 182. No bandemia. Coags show PT 14.0 INR PTT within acceptable limits CMP shows sodium potassium chloride CO2 and anion gap within acceptable limits BUN is 103 creatinine 2.4. Glucose at 115. T. bili at 1.5 note it has been higher in the past and is now downtrending AST at 42 alk phos at 52 ALT at 14 LDH at 1290. BNP at 698 urine is turbid looks a contaminated leukocyte Estrace positive with WBCs at 56 and 4+ bacteria. Talk screen is negative Imaging Imaging interpretation: Interpreted by me Imaging Interpretation(s): CT of head and C-spine as interpreted by me read by radiology as negative for any acute finding requires emergent or meet intervention. Medication Administration(s) Medication Administration History Ceftriaxone Sodium/Dextrose (Rocephin/D5w 1gm Iv Premix) 1 gm in 50 mls @ 100 mls/hr IV X1 ONE Stop: 10/25/24 20:49
[2024-10-25 19:11] VITALS: BP 104/57; PULSE 71; RESP 18; TEMP 36.5; O2SAT 97
[2024-10-25 19:13] VITALS: PULSE 60; RESP 15; O2SAT 95; BMI 32.9
[2024-10-25 19:33] LABS: Basophils % (Auto) 0 % (0-2.5); Eosinophils # (Auto) 0.1 Thou/mm3 (0.0-0.5); Eosinophils % (Auto) 1 % (0-10); Hematocrit 26.5 % (36.0-46.0); Hemoglobin 9.5 g/dL (12.0-16.0); Immature Granulocytes % (Auto) 2 % (0-0); Immature Granulocytes Auto 0.09 Thou/mm3 (0.00-0.00); Lymphocytes # (Auto) 1.5 Thou/mm3 (1.0-4.8); Lymphocytes % (Auto) 32 % (10-50); Mean Corpuscular HGB Conc 35.8 g/dl (31.0-37.0); Mean Corpuscular Hemoglobin 31.7 pg (25.0-35.0); Mean Corpuscular Volume 88 fL (80-100); Monocytes # (Auto) 0.5 Thou/mm3 (0.0-0.8); Monocytes % (Auto) 10 % (0-12); Neutrophils # (Auto) 2.7 Thou/mm3 (1.8-7.7); Neutrophils % (Auto) 56 % (37-80); Nucleated Red Blood Cell # 0.02 Thou/mm3 (0.00-0.00); Nucleated Red Blood Cell % 0 /100 WBC (0); Platelet Count 182 Thou/mm3 (140-440); RDW Standard Deviation 46.4 fL (36.4-46.3); White Blood Count 4.9 Thou/mm3 (3.6-11.0)
[2024-10-25 19:55] LABS: INR 1.3 (0.9-1.3); Partial Thromboplastin Time 32.4 Seconds (22.0-36.0)
[2024-10-25 19:56] LABS: Collection Type, Urine Clean Catch
[2024-10-25 19:58] LABS: B-Type Natriuretic Peptide 698 pg/mL (0-100)
[2024-10-25 20:10] LABS: Alanine Aminotransferase 14 U/L (10-49); Albumin, Serum 3.2 gm/dL (3.4-4.8); Albumin/Globulin Ratio 1.5 (1.2-2.2); Alkaline Phosphatase 52 U/L (46-116); Anion Gap 13 (7-16); Aspartate Amino Transferase 42 U/L (0-34); BUN/Creatinine Ratio 43 Ratio (12-20); Bilirubin,Total 1.5 mg/dL (0.3-1.2); Calcium 8.4 mg/dL (8.3-10.6); Carbon Dioxide 24.9 mMol/L (20.0-31.0); Chloride 100 mMol/L (98-107); Creatinine (Component) 2.4 mg/dL (0.6-1.3); Estimated Creatinine Clearance 17.6 mL/min (>60); Globulin 2.1 gm/dL (2.3-3.5); Glucose 115 mg/dL (74-106); LDH (Lactate Dehydrogenase) 1290 U/L (120-246); Magnesium 1.9 mg/dL (1.6-2.6); Osmolality,Calculated 308 (275-295); Potassium 3.5 mMol/L (3.4-5.1); Sodium 138 mMol/L (136-145); Total Protein 5.3 gm/dL (5.7-8.2); Troponin I 0.021 ng/mL (0.0-0.045); eGFR 20 See Note
[2024-10-25 20:10] LABS: Bacteria,Urine 4+; Bilirubin,Urine Negative (Negative); Blood,Urine 1+ (Negative); Clarity,Urine Turbid (Clear/Hazy); Color,Urine Yellow (Lt Yel-Yel); Glucose, Urine Negative (Negative); Hyaline Casts,Urine < 1 /hpf (0-1); Ketones,Urine Negative (Negative); Leukocyte Esterase,Urine Positive (Negative); Nitrite,Urine Negative (Negative); PH,Urine 5.5 (5.0-7.0); Protein,Urine 1+ (Neg - Trace); RBC,Urine 10 /hpf (0-3); Specific Gravity,Urine 1.014 (1.001-1.035); Squamous Epithelial Cell,Urine 47 /hpf (0-5); WBC,Urine 56 /hpf (0-5)
[2024-10-25 20:13] LABS: Blood Urea Nitrogen 103 mg/dL (9-23)
[2024-10-25 20:16] LABS: Amphetamine/Methamp Scrn,U Negative (Negative); Barbiturate Screen,Urine Negative (Negative); Benzodiazepines Screen,Urine Negative (Negative); Benzoylecgonine Screen, Ur Negative (Negative); Fentanyl Screen,Urine Negative (Negative); Opiate Screen,Urine Negative (Negative); THC Screen,Urine Negative (Negative)
--- NOTE | 2024-10-25 20:30 | XR_ITS ---
Examination: AP chest single view TECHNIQUE: AP portable upright chest single view Exam date and time: October 25, 20242033 hours Comparison September 04, 2024 INDICATIONS: Weakness coughing today FINDINGS: Mild heart failure. Mild retrocardiac quadrant with prominent vascular congestion and early perihilar edema Pneumonia left base with left pleural effusion. IMPRESSION: Mild heart failure. Significant pneumonia left base
[2024-10-25 20:42] LABS: Path Review Blood Smear Sent to Pathologist
[2024-10-25] MEDS: cefTRIAXone/D5w 1gm IV premix 1 GM/50 ML BAG IV (20:43)
--- NOTE | 2024-10-25 20:59 | PD.EVENT ---
Documentation for date of: 10/25/24 Event Note Event Note: An 84-year-old female presented to the ER with the chief complaint of progressive functional decline following a fall one week ago. The patient described one week of worsening weakness and reduced mobility. She fell at home while walking and was found on the floor by a family member, unable to get up without assistance last Friday. She subsequently crawled to the living room. Initially, she reported feeling fine and was able to eat and ambulate to the bathroom the following day. However, by the end of the week, her family noted a significant decline in her condition, including increased weakness, poor appetite, and confusion. She also c/o nausea, generalized swelling (notably in the lower extremities), and bruising (presumed to be from the fall). Patient denied chest pain, shortness of breath, fever, vomiting, or recent diarrhea. There had been no evaluation since the fall until this ER visit. The family expressed growing concern about polypharmacy, improper medication use, and their inability to safely manage her care at home. They are pursuing custodial placement due to increasing caregiver burden and the patient?s declining functional status. The patient has a history of HTN, CHF, A-fib, and anxiety. Surgical history includes cholecystectomy. Current medications include Sertraline, Hydralazine, Carvedilol, Eliquis, Amlodipine, Metolazone, and Furosemide. Social history includes no reported smoking, alcohol, or drug use. She previously lived independently with support from a provider but has been residing with family for the past three months due to increased needs. Functional status has declined significantly since her recent fall. In the ER, vital signs were recorded as temp 97.6 F, HR 66 bpm, RR 16, and BP 96/56 mmHg. Labs revealed WBC 4.9, Hb 9.5, PLT 182, Na 138, K 3.5, Cl 100, BUN 103, Cr 2.4, glucose 115, BNP 698, and albumin 3.2. UA was turbid with WBC [address] RBC [address] Head [address] showed no acute hemorrhage, mass effect, or midline shift. Cervical CT revealed no acute cervical fracture. Admit for further of JANEY, UTI, and placement needs.
--- NOTE | 2024-10-25 21:23 | PD.RESHP ---
Documentation for date of: 10/25/24 [facility] History of Present Illness Chief complaint: twitching History of present illness: Cheri Bauer is 84 yr female with PMH of HFpEF 50-55%, hypertension, Torres's palsy, Parkinson's presenting to ED due to shaking/twitching while sleeping. Episode started yesterday noticed by family. Daughter was at bedside who also endorsed increased lethargy in the past 24 hours. Patient sleeping more than usual. Upon awakening however, patient was alert and oriented x 3 with resolution of the twitching. Twitching never happened in the past. She denies any pain, however endorses some weakness. Patient has also had poor oral intake and decreased water intake. Unable to complete ADLs as she is mostly bedbound. Family assists with ADLs along with caregiver including bathing, bathroom, cooking, bills, healthcare apts. Patient needs full support when getting up to use the bathroom. She sees PCP and french weaver Dr. Reynolds outpatient. However family is unaware of any recent updates from the providers. Patient has opted to keep family out of healthcare making decisions/sharing any information. Family is unable to provide full care for patient at home and requesting for nursing facility placement. She denies any headache, chest pain, shortness of breath, abdominal pain, dysuria. In ED, blood pressure 96/56, heart rate 66, afebrile. CBC reveals anemia with hemoglobin 9.5, MCV 88, platelets 182. Sodium on CMP 138, potassium 3.5, BUN 103, creatinine 2.4, glucose 115, GFR 20. Bilirubin slightly elevated 1.5, LDH 1290, BNP 698. Urine toxicology negative, UA positive for UTI with leukocyte esterase and WBC 56, 4+ bacteria. CT cervical spine, CT head negative for any acute changes including fractures or hemorrhage. Admit for further of JANYE, UTI, and placement needs. PMH: As noted above PSH: Cholecystectomy FamHx: Unknown, mother father Social: Lives alone in [place]. Has help from family and computer systems consultant. Denies any alcohol, denies any smoking. Meds: Sertraline 50 mg, hydralazine 25 mg 3 times daily, Coreg 6.25 mg twice daily, Eliquis 2.5 twice daily, amlodipine 10 mg, metolazone 2.5 mg, furosemide 40 mg Allergies: NKDA Review of Systems Review of Systems Systems Reviewed: All systems reviewed, normal except as documented Exam Vital Signs Temp Pulse Resp BP Pulse Ox O2 Del Method 97.7 F 71 18 104/57 L 97 Room Air 10/25/24 19:11 10/25/24 19:11 10/25/24 19:11 10/25/24 19:11 10/25/24 19:11 10/25/24 19:11 Narrative Exam General: Elderly female, difficulty hearing, no acute distress, cooperative. HEENT: NCAT, No JVD noted. Mucosa dry. Pupils are equal and reactive to light bilaterally. Cardiovascular: Normal S1 and S2. Regular rate and rhythm. Respiratory: Lungs are clear to auscultation bilaterally. No wheezing or crackles heard. Abdomen: Soft, nontender, not distended, normal bowel sounds. Skin: Warm to touch, dry, no rashes noted, senile purpura extremities. Musculoskeletal: No gross injuries. Able to move all 4 extremities. No pitting edema. Neuro: Alert and oriented x3. No focal neuro deficits. No twitching noticed during exam. Psych: Normal affect and mood. Results: Labs 10/25/24 19:22 10/25/24 19:22 Labs: Short CBC 10/25/24 Range/Units 19:22 WBC 4.9 (3.6-11.0) Thou/mm3 Hgb 9.5 L (12.0-16.0) g/dL Hct 26.5 L (36.0-46.0) % Plt Count 182 (140-440) Thou/mm3 BMP 10/25/24 19:22 Sodium 138 Potassium 3.5 Chloride 100 Carbon Dioxide 24.9 BUN 103 H* Creatinine 2.4 H Glucose 115 H Calcium 8.4 Cardiac Enzymes 10/25/24 Range/Units 19:22 Troponin I 0.021 (0.0-0.045) ng/mL Liver Function 10/25/24 Range/Units 19:22 Total Bilirubin 1.5 H (0.3-1.2) mg/dL AST 42 H (0-34) U/L ALT 14 (10-49) U/L Alkaline Phosphatase 52 (46-116) U/L Albumin 3.2 L (3.4-4.8) gm/dL Urine 10/25/24 Range/Units 19:54 Urine Color Yellow (Lt Yel-Yel) Urine Clarity Turbid A (Clear/Hazy) Urine pH 5.5 (5.0-7.0) Ur Specific [place] 1.014 (1.001-1.035) Urine Protein 1+ A (Neg - Trace) Urine Glucose (UA) Negative (Negative) Quality Measures Quality Measures none Advance care planning discussed with:: patient Medications Home Medications and Allergies Home Medications ?Medication ?Instructions ?Recorded ?Confirmed ?Type amlodipine 10 mg tablet 10 mg PO DAILY 10/20/21 02/21/24 History lisinopril 40 mg tablet 40 mg PO DAILY 10/20/21 02/21/24 History Held on 02/26/24. Instructions: Resume on 03/04/24. Hold until follow up with PCP ondansetron 4 mg disintegrating 4 mg PO [id number] PRN nausea and 02/21/24 02/21/24 History tablet vomiting Allergies Allergy/AdvReac Type Severity Reaction Status Date / Time No Known Allergies Allergy Verified 10/25/24 19:12 Visit Medications Acetaminophen (Acetaminophen 325 Mg Tablet) 650 mg PO Q6H PRN PRN Reason: Fever >100.3 or pain Stop: 11/24/24 21:18 Heparin Sodium (Porcine) (Heparin Sod Inj 5000 Unit/Ml Vial) 5,000 unit SC Q8HR PRINCESS Stop: 11/08/24 21:59 Sodium Chloride (Ns) 1,000 mls @ 75 mls/hr IV .[id number] PRINCESS Stop: 10/26/24 10:49 Ceftriaxone Sodium/Dextrose (Rocephin/D5w 1gm Iv Premix) 1 gm in 50 mls @ 100 mls/hr IV QDAY PRINCESS Stop: 11/01/24 21:21 Ondansetron HCl (Ondansetron Inj 2 Mg/Ml Inj 2 Ml) 4 mg IV Q6H PRN; Protocol PRN Reason: NAUSEA OR VOMITING Stop: 11/24/24 21:18 Sennosides (Senna Tablet) 1 tab PO QDAY PRN; Protocol PRN Reason: constipation Stop: 11/24/24 21:18 Discontinued Medications Ceftriaxone Sodium/Dextrose (Rocephin/D5w 1gm Iv Premix) 1 gm in 50 mls @ 100 mls/hr IV X1 ONE Stop: 10/25/24 20:49 Last Admin: 10/25/24 20:43 Dose: 100 mls/hr Assessment & Plan Plan Cheri Bauer is 84 yr female with PMH of HFpEF 50-55%, hypertension, Torres's palsy, Parkinson's presenting to ED due to shaking/twitching while sleeping. Episode started yesterday noticed by family. Also endorsing decreased oral intake and dehydration. Admit for further of JANEY, UTI, and placement needs. #JANEY BUN 103, creatinine 2.4, BUN/Cr 43. JANEY most likely prerenal in setting of dehydration. Patient states that she does not drink much water. Blood pressure soft on admission, 96/56. UA positive for UTI but no leukocytosis or fever. Anticipate improvement with fluids. - Maintenance fluids 75 cc/h NS - Avoid nephrotoxic agents--hold patient's home furosemide and metolazone - Daily CMP #UTI Patient denies any symptoms of dysuria. UA positive for UTI with leukocyte esterase and WBC 56, 4+ bacteria. - Ceftriaxone 1 g daily - Monitor symptoms #Reduced mobility Patient mostly bedbound. Requires full-time care from family or caregiver. Unable to complete ADLs without any assistance. They are pursuing [facility] placement due to increasing caregiver burden and the patient?s declining functional status. - library services coordinator consult - Physical therapy assessment #Hx HTN #Hx HFpEF (50-55%) # Hx A-fib, rate controlled Patient's home medications include hydralazine 25 mg 3 times daily, Coreg 6.25 mg, Eliquis 2.5 twice daily, amlodipine 10 mg, metolazone 2.5 mg, furosemide 40 mg - Holding metolazone and furosemide in setting of JANEY - Holding other antihypertensive as blood pressure soft - Daily weights #Hx Torres's palsy #Hx Parkinson's - Follow-up outpatient Health maintenance: Dispo: tele, UTI, JANEY, snf placement FEN: regular DVT prophylaxis: Eliquis 2.5 bid CODE STATUS: DNR The patient's management plan was discussed with my attending physician Dr. Sutherland. Kelly Gonzalez, PGY-1 Attending Provider Attestation/Addendum Pt was evaluated and plan formulated together with the housestaff team. I have reviewed the residents note above and agree with most of its content. Please refer to the residents note for additional details.
[2024-10-25] MEDS: HEPARIN SOD INJ 5000 UNIT/ML VIAL SC (21:52)
[2024-10-25] MEDS: SODIUM CHLORIDE 0.9% 1000 ML 1,000 ML 75 ML IV (21:52)
[2024-10-25 21:57] VITALS: BP 100/56; PULSE 60; RESP 20; TEMP 36.7; O2SAT 95
[2024-10-25] MEDS: APIXABAN 2.5 MG TABLET PO (22:46)
[2024-10-25 22:59] VITALS: BMI 28.7
[2024-10-26] VITALS (10 sets, daily range): BP systolic 103–119; BP diastolic 49–70; PULSE 59–91; RESP 16–95; TEMP 36.1–36.6; O2SAT 94–97
[2024-10-26 06:01] LABS: Basophils % (Auto) 0 % (0-2.5); Eosinophils % (Auto) 1 % (0-10); Hematocrit 25.5 % (36.0-46.0); Immature Granulocytes % (Auto) 1 % (0-0); Immature Granulocytes Auto 0.06 Thou/mm3 (0.00-0.00); Lymphocytes # (Auto) 1.3 Thou/mm3 (1.0-4.8); Lymphocytes % (Auto) 28 % (10-50); Mean Corpuscular HGB Conc 34.5 g/dl (31.0-37.0); Mean Corpuscular Hemoglobin 31.3 pg (25.0-35.0); Mean Corpuscular Volume 91 fL (80-100); Monocytes # (Auto) 0.4 Thou/mm3 (0.0-0.8); Monocytes % (Auto) 8 % (0-12); Neutrophils # (Auto) 2.8 Thou/mm3 (1.8-7.7); Neutrophils % (Auto) 62 % (37-80); Nucleated Red Blood Cell % 0 /100 WBC (0); Platelet Count 161 Thou/mm3 (140-440); RDW Standard Deviation 46.5 fL (36.4-46.3); Red Blood Count 2.81 Miln/mm3 (4.00-5.20); White Blood Count 4.5 Thou/mm3 (3.6-11.0)
[2024-10-26 06:35] LABS: Alanine Aminotransferase 12 U/L (10-49); Albumin, Serum 3.1 gm/dL (3.4-4.8); Albumin/Globulin Ratio 1.6 (1.2-2.2); Alkaline Phosphatase 47 U/L (46-116); Anion Gap 15 (7-16); Aspartate Amino Transferase 38 U/L (0-34); BUN/Creatinine Ratio 45 Ratio (12-20); Bilirubin,Total 1.2 mg/dL (0.3-1.2); Blood Urea Nitrogen 95 mg/dL (9-23); Calcium 8.4 mg/dL (8.3-10.6); Calcium (Corrected) 9.1 mg/dL (8.5-10.1); Carbon Dioxide 23.4 mMol/L (20.0-31.0); Chloride 100 mMol/L (98-107); Creatinine (Component) 2.1 mg/dL (0.6-1.3); Estimated Creatinine Clearance 18.8 mL/min (>60); Globulin 1.9 gm/dL (2.3-3.5); Glucose 105 mg/dL (74-106); Magnesium 1.9 mg/dL (1.6-2.6); Osmolality,Calculated 305 (275-295); Potassium 3.5 mMol/L (3.4-5.1); Sodium 138 mMol/L (136-145); eGFR 23 See Note
[2024-10-26 07:15] LABS: Hemoglobin 8.8 g/dL (12.0-16.0)
[2024-10-26] MEDS: SERTRALINE HCL 25 MG TABLET 50 MG PO (09:00)
[2024-10-26] MEDS: APIXABAN 2.5 MG TABLET PO ×2 (09:00→21:10)
[2024-10-26] MEDS: ONDANSETRON INJ 2 MG/ML INJ 2 ML 4 MG IV ×2 (09:27→18:12)
--- NOTE | 2024-10-26 11:54 | PD.RESPRO ---
Documentation for date of: 10/26/24 Subjective Subjective Interval history: Patient seen today at the bedside found awake, alert, orientedx3. States some mild discomfort in suprapubic area. Vitals and labs reviewed. Bladder scan was ordered and found to have over 500 cc retained urine Silva's catheter was placed. Additionally patient's uremic for which nephrology was consulted. Patient will require SNF placement at time of discharge as family is unable to care for the patient. Will continue current management for urinary tract infection with current antibiotic regimen. Exam Vital Signs Temp Pulse Resp BP Pulse Ox O2 Del Method 97.4 F 91 17 111/70 96 Room Air 10/26/24 08:00 10/26/24 08:00 10/26/24 08:00 10/26/24 08:00 10/26/24 08:00 10/26/24 08:00 Narrative Exam Physical Exam GENERAL: NAD, AAOx3, hard of hearing HEENT: Moist mucosa. Eyes open, symmetrical, & clear CARDIO: Heart RRR, no obvious murmurs PULM: No noted coughing/dyspnea CTA B/L, no R/W/R GI: Abdomen soft, nondistended, pain on palpation of suprapubic region. BSx4 SKIN/MSK/EXT: No wounds/rashes/edema/amputations, no pain on palpation. Pedal pulses present B/L NEURO: AAOx3, no focal neuro deficits, able to move all 4 extremities Objective Labs 10/27/24 04:48 10/27/24 04:48 Labs: Laboratory Results - last 24 hr 10/25/24 10/25/24 10/26/24 19:22 19:54 05:01 WBC 4.9 4.5 RBC 3.00 L 2.81 L Hgb 9.5 L 8.8 L Hct 26.5 L 25.5 L MCV 88 91 MCH 31.7 31.3 MCHC 35.8 34.5 RDW Std Deviation 46.4 H 46.5 H Plt Count 182 161 Neut % (Auto) 56 62 Lymph % (Auto) 32 28 Crowley % (Auto) 10 8 Eos % (Auto) 1 1 Baso % (Auto) 0 0 Neut # (Auto) 2.7 2.8 Lymph # (Auto) 1.5 1.3 Crowley # (Auto) 0.5 0.4 Eos # (Auto) 0.1 0.0 Baso # (Auto) 0.0 0.0 Immature Gran # (Auto) 0.09 H 0.06 H Absolute Nucleated RBC 0.02 H 0.00 Immature Gran % 2 H 1 H Nucleated RBC % 0 0 Smear Path Review Sent to Pathologist PT 14.0 H INR 1.3 APTT 32.4 Sodium 138 138 Potassium 3.5 3.5 Chloride 100 100 Carbon Dioxide 24.9 23.4 Anion Gap 13 15 BUN 103 H* 95 H Creatinine 2.4 H 2.1 H Estim Creat Clear Calc 17.6 L 18.8 L eGFR 20 L 23 L BUN/Creatinine Ratio 43 H 45 H Glucose 115 H 105 Calculated Osmolality 308 H 305 H Calcium 8.4 8.4 Corrected Calcium 9.0 9.1 Magnesium 1.9 1.9 Total Bilirubin 1.5 H 1.2 AST 42 H 38 H ALT 14 12 Alkaline Phosphatase 52 47 Lactate Dehydrogenase 1290 H Troponin I 0.021 B-Natriuretic Peptide 698 H* Total Protein 5.3 L 5.0 L Albumin 3.2 L 3.1 L Globulin 2.1 L 1.9 L Albumin/Globulin Ratio 1.5 1.6 Ur Collection Type Clean Catch Urine Color Yellow Urine Clarity Turbid A Urine pH 5.5 Ur Specific [place] 1.014 Urine Protein 1+ A Urine Glucose (UA) Negative Urine Ketones Negative Urine Blood 1+ A Urine Nitrite Negative Urine Bilirubin Negative Urine Urobilinogen (Auto) 2.0 Ur Leukocyte Esterase Positive Urine RBC 10 H Urine WBC 56 H Ur Squamous Epith Cells 47 H Urine Bacteria 4+ A Hyaline Casts < 1 Urine Opiates Screen Negative Urine Fentanyl Screen Negative Ur Barbiturates Screen Negative U Amphetamin/Meth Scrn Negative U Benzodiazepines Scrn Negative U Cocaine Metab Screen Negative U Marijuana (THC) Screen Negative Quality Measures Quality Measures none Advance care planning discussed with:: patient Assessment & Plan Assessment Current Active Medications: Generic Name Dose Route Start Last Admin Trade Name Freq PRN Reason Stop Dose Admin Acetaminophen 650 mg 10/25/24 21:19 Acetaminophen 325 Mg Tablet PO 11/24/24 21:18 Q6H PRN Fever >100.3 or pain Apixaban 2.5 mg 10/25/24 22:00 10/26/24 09:00 Apixaban 2.5 Mg Tablet PO 11/24/24 21:59 2.5 mg BID PRINCESS Administration Ceftriaxone Sodium/Dextrose 1 gm in 50 mls @ 100 mls/hr 10/26/24 21:00 Rocephin/D5w 1gm Iv Premix IV 11/02/24 20:59 QDAY@2100 PRINCESS Ondansetron HCl 4 mg 10/25/24 21:19 10/26/24 09:27 Ondansetron Inj 2 Mg/Ml Inj 2 Ml IV 11/24/24 21:18 4 mg Q6H PRN Administration NAUSEA OR VOMITING Protocol Sennosides 1 tab 10/25/24 21:19 Senna Tablet PO 11/24/24 21:18 QDAY PRN constipation Protocol Sertraline HCl 50 mg 10/26/24 09:00 10/26/24 09:00 Sertraline Hcl 25 Mg Tablet PO 11/25/24 08:59 50 mg DAILY PRINCESS Administration Plan 84 yr female with PMH of HFpEF 50-55%, hypertension, Torres's palsy, Parkinson's presenting to ED due to shaking/twitching while sleeping. Episode started yesterday noticed by family. Also endorsing decreased oral intake and dehydration. Admit for further of JANEY, UTI, and placement needs. #Acute Kidney injury on CKD stage IV-improving #Uremia #urinary retention eGFR 23, BUN 95 Bladder scan was done due to suprapubic pain found with more than 350 cc ? Silva catheter placed ? Avoid nephrotoxins ? Renally dose medications ? Nephrology consulted, appreciate recommendations #UTI Patient denies any symptoms of dysuria. UA positive for UTI with leukocyte esterase and WBC 56, 4+ bacteria. - Ceftriaxone 1 g daily - f/u UCx - Monitor symptoms #Physical Deconditioning Patient mostly bedbound. Requires full-time care from family or caregiver. Unable to complete ADLs without any assistance. Family wants to pursuing half-way placement due to increasing caregiver burden and the patient?s declining functional status. - hospitality services manager consult - Physical therapy assessment #Hx HTN #Hx HFpEF (50-55%) # Hx A-fib, rate controlled Patient's home medications include hydralazine 25 mg 3 times daily, Coreg 6.25 mg, Eliquis 2.5 twice daily, amlodipine 10 mg, metolazone 2.5 mg, furosemide 40 mg - Holding metolazone and furosemide in setting of JANEY - Holding other antihypertensive as blood pressure soft - Daily weights - Eliquis 2.5mg BID #Hx Torres's palsy #Hx Parkinson's - Follow-up outpatient Health Maintenance: Disposition: medtele Fluids: NS Feeding: reg Thrombo prophylaxis: Eliquis 2.5mg BID Gastric Ulcer prophylaxis: none CODE STATUS: DNR Case discussed with my senior Dr. Amezquita and my attending Dr. Gilberto Marti MD PGY-1 Disclaimer: Despite multiple revisions, due to the dictation software being used, the document bellow may not be free of grammatical errors including phonetic/typographic errors. However, this does not deter from our commitment to providing health care in the patient's best interest in mind. Patient examined and case discussed with the team including attending physician. Note reviewed, I agree with the care plan as documented. Ms Bauer is a 84-year-old female admitted for generalized weakness secondary to pneumonia in setting of JANEY on CKD. She was also found to have UTI, 4+ bacteriuria. Patient is on 1 g Rocephin, improving at this time. Family counseled at bedside, unable to take care of the patient at home, request SNF placement. Patient shows full comprehension AO x 4 on activity denies SNF but was counseled extensively given risks. hospitality services manager on board, appreciate input. Will continue to monitor on IV antibiotics, physical therapy ordered for further evaluation. Please refer to the note above for further details. - Arie Amezquita MD, PGY 2 Disclaimer: The document may contain phonetic/typographic errors due to voice recognition software. These errors are purely due to imperfections in the software program and should not be misconstrued in any way to compromise the substance of the patient's medical care during this visit. Attending Provider Attestation/Addendum I, Jazmín Macias DO, attest that I was physically present for the hoff portions of the service and evaluated the patient with the resident and I reviewed and discussed the case with the resident and agree with the resident's findings and plans of care as documented above Patient seen and eval this a.m. No family at bedside at time of my evaluation. Patient had complaints of suprapubic pain this morning. Bladder scan was done showing over 500 cc of urinary retention. Silva catheter was subsequently placed. Patient endorsed relief after Silva was placed. Patient is ANO x 3, but hard of hearing. Nephrology was consulted due to acute kidney injury. Suspect that the twitching that was noted by family members was secondary to uremia versus dehydration. Will continue with IV fluid hydration as she appears to be very dry and has dry oral mucosa. Patient will likely need a SNF on discharge as patient lives alone and cares for self. However, it appears that she often confuses her medications at home. Will hold her home metolazone and Lasix.
--- NOTE | 2024-10-26 13:44 | PD.RESCONSUL ---
[facility] Data of Consult Consult date: 10/26/24 Requesting Physician: Navarro Sutherland MD Admitting Provider: Navarro Sutherland MD Attending Provider: Navarro Sutherland MD Primary Care Provider: Kurt Woody MD Consult Narrative Reason for consult: JANEY on CKD with uremia History of present illness: Cheri Bauer is 84 y/o female with PMHx of HFpEF 50-55%, hypertension, Torres's palsy, Parkinson's presenting to ED due to shaking/twitching while sleeping. Episode noticed by family. Patient sleeping more than usual. Upon awakening however, patient was alert and oriented x 3 with resolution of the twitching. Patient has also had poor oral intake and decreased water intake. Unable to complete ADLs as she is mostly bedbound. Family assists with ADLs along with caregiver including bathing, bathroom, cooking, bills, healthcare apts. Patient needs full support when getting up to use the bathroom. She sees PCP and process helper Dr. Reynolds outpatient. However family is unaware of any recent updates from the providers. Patient has opted to keep family out of healthcare making decisions/sharing any information. Family is unable to provide full care for patient at home and requesting for nursing facility placement. Patient endorses weakness, dysuria. She denies any headache, chest pain, shortness of breath, abdominal pain. In ED, blood pressure 96/56, heart rate 66, afebrile. CBC reveals anemia with hemoglobin 9.5, MCV 88, platelets 182. Sodium on CMP 138, potassium 3.5, BUN 103, creatinine 2.4, glucose 115, GFR 20. Bilirubin slightly elevated 1.5, LDH 1290, BNP 698. Urine toxicology negative, UA positive for UTI with leukocyte esterase and WBC 56, 4+ bacteria. CT cervical spine, CT head negative for any acute changes including fractures or hemorrhage. Admit for further of JANEY, UTI, and placement needs. Nephrology consulted due to JANEY on CKD with uremia. Patient seen and examined at bedside, resting comfortably. Patient continues to endorse dysuria, reports having seen a synthetic filament spinner but not followed closely. Has had poor p.o. intake over the past few days. Urinalysis contaminated. Sodium 138, potassium 3.5, bicarb 23.4, BUN 95, creatinine 2.1, EGFR 23. Kidney function improving with IVF. Patient very dry on clinical exam. Patient has suprapubic mass, possible urinary retention. Bladder scan ordered. cc:: cc: Navarro Sutherland MD Review of Systems Review of Systems Systems Reviewed: All systems reviewed, normal except as documented Past Medical History Past Medical History Comments PMH COMMENT: PMH: As noted above PSH: Cholecystectomy FamHx: Unknown, mother father Social: Lives alone in [place]. Has help from family and speech language pathologist assistant. Denies any alcohol, denies any smoking. Meds: Sertraline 50 mg, hydralazine 25 mg 3 times daily, Coreg 6.25 mg twice daily, Eliquis 2.5 twice daily, amlodipine 10 mg, metolazone 2.5 mg, furosemide 40 mg Allergies: NKDA Exam Vital Signs Temp Pulse Resp BP Pulse Ox O2 Del Method 97.9 F 59 L 19 105/56 L 95 Room Air 10/26/24 12:00 10/26/24 13:21 10/26/24 12:00 10/26/24 12:00 10/26/24 12:00 10/26/24 12:00 Narrative Exam PE: Gen: Well-developed and well-nourished. HEENT: NCAT, PERRLA, EOMI, anicteric conjunctivae. Dry mucous membranes. CVS: normal S1 and S2. RRR. No M/R/G. Resp: CTA B/L. No rhonchi, rales, crackles or wheezing. Abd: soft, non-tender, non-distended. Suprapubic mass. MSK: Good ROM in BUE & BLE. No edema or rash. Significant bruising left forearm. Neuro: CN II-XII grossly intact. Strength 5/5 in BUE & BLE. Alert and oriented x3. Psych: appropriate mood and affect. Results Labs 10/27/24 04:48 10/26/24 05:01 Labs: Short CBC 10/25/24 10/26/24 Range/Units 19:22 05:01 WBC 4.9 4.5 (3.6-11.0) Thou/mm3 Hgb 9.5 L 8.8 L (12.0-16.0) g/dL Hct 26.5 L 25.5 L (36.0-46.0) % Plt Count 182 161 (140-440) Thou/mm3 BMP 10/25/24 10/26/24 19:22 05:01 Sodium 138 138 Potassium 3.5 3.5 Chloride 100 100 Carbon Dioxide 24.9 23.4 BUN 103 H* 95 H Creatinine 2.4 H 2.1 H Glucose 115 H 105 Calcium 8.4 8.4 Cardiac Enzymes 10/25/24 Range/Units 19:22 Troponin I 0.021 (0.0-0.045) ng/mL Liver Function 10/25/24 10/26/24 Range/Units 19:22 05:01 Total Bilirubin 1.5 H 1.2 (0.3-1.2) mg/dL AST 42 H 38 H (0-34) U/L ALT 14 12 (10-49) U/L Alkaline Phosphatase 52 47 (46-116) U/L Albumin 3.2 L 3.1 L (3.4-4.8) gm/dL Urine 10/25/24 Range/Units 19:54 Urine Color Yellow (Lt Yel-Yel) Urine Clarity Turbid A (Clear/Hazy) Urine pH 5.5 (5.0-7.0) Ur Specific [place] 1.014 (1.001-1.035) Urine Protein 1+ A (Neg - Trace) Urine Glucose (UA) Negative (Negative) Quality Measures Quality Measures VTE prophylaxis Advance care planning discussed with:: patient Medications Home Medications and Allergies Home Medications ?Medication ?Instructions ?Recorded ?Confirmed ?Type amlodipine 10 mg tablet 10 mg PO DAILY 10/20/21 10/26/24 History lisinopril 40 mg tablet 40 mg PO DAILY 10/20/21 10/26/24 History Held on 02/26/24. Instructions: Resume on 03/04/24. Hold until follow up with PCP ondansetron 4 mg disintegrating 4 mg PO [id number] PRN nausea and 02/21/24 10/26/24 History tablet vomiting apixaban 2.5 mg tablet (Eliquis) 2.5 mg PO BID 10/26/24 10/26/24 History carvedilol 6.25 mg tablet 6.25 mg PO BID 10/26/24 10/26/24 History furosemide 40 mg tablet 40 mg PO QDAY 10/26/24 10/26/24 History hydralazine 25 mg tablet 25 mg PO TID 10/26/24 10/26/24 History metolazone 2.5 mg tablet 2.5 mg PO QDAY 10/26/24 10/26/24 History Allergies Allergy/AdvReac Type Severity Reaction Status Date / Time No Known Allergies Allergy Verified 10/25/24 19:12 Visit Medications Acetaminophen (Acetaminophen 325 Mg Tablet) 650 mg PO Q6H PRN PRN Reason: Fever >100.3 or pain Stop: 11/24/24 21:18 Apixaban (Apixaban 2.5 Mg Tablet) 2.5 mg PO BID PRINCESS Stop: 11/24/24 21:59 Last Admin: 10/26/24 09:00 Dose: 2.5 mg Ceftriaxone Sodium/Dextrose (Rocephin/D5w 1gm Iv Premix) 1 gm in 50 mls @ 100 mls/hr IV QDAY@2100 PRINCESS Stop: 11/02/24 20:59 Ondansetron HCl (Ondansetron Inj 2 Mg/Ml Inj 2 Ml) 4 mg IV Q6H PRN; Protocol PRN Reason: NAUSEA OR VOMITING Stop: 11/24/24 21:18 Last Admin: 10/26/24 09:27 Dose: 4 mg Sennosides (Senna Tablet) 1 tab PO QDAY PRN; Protocol PRN Reason: constipation Stop: 11/24/24 21:18 Sertraline HCl (Sertraline Hcl 25 Mg Tablet) 50 mg PO DAILY PRINCESS Stop: 11/25/24 08:59 Last Admin: 10/26/24 09:00 Dose: 50 mg Discontinued Medications Heparin Sodium (Porcine) (Heparin Sod Inj 5000 Unit/Ml Vial) 5,000 unit SC Q8HR PRINCESS Stop: 11/08/24 21:59 Last Admin: 10/25/24 21:52 Dose: 5,000 unit Ceftriaxone Sodium/Dextrose (Rocephin/D5w 1gm Iv Premix) 1 gm in 50 mls @ 100 mls/hr IV X1 ONE Stop: 10/25/24 20:49 Last Infusion: 10/25/24 21:43 Dose: Infused Sodium Chloride (Ns) 1,000 mls @ 75 mls/hr IV .[id number] PRINCESS Stop: 10/26/24 10:49 Last Admin: 10/25/24 21:52 Dose: 75 mls/hr Assessment & Plan Plan 84 yr female with PMH of HFpEF 50-55%, hypertension, Torres's palsy, Parkinson's presenting to ED due to shaking/twitching while sleeping. Episode started yesterday noticed by family. Also endorsing decreased oral intake and dehydration. Admit for further of JANEY, UTI, and placement needs. #Acute Kidney injury on CKD stage IV-improving #Uremia eGFR 23, BUN 95, significantly decreased renal function compared to patient's baseline. Patient follows with synthetic filament spinner rarely. Patient found to have suprapubic mass on exam. Bladder scan was done, more than 350 cc. Patient appears very dry on exam. ? Silva catheter placed ? Avoid nephrotoxins ? Renally dose medications ? Monitor daily labs - IVF: Normal saline 75 mL/h x 1 L #UTI Patient endorses dysuria. UA positive for UTI with leukocyte esterase and WBC 56, 4+ bacteria, however contaminated. - Ceftriaxone 1 g daily - f/u UCx - Monitor symptoms #Physical Deconditioning #Hx HTN #Hx HFpEF (50-55%) #Hx A-fib, rate controlled #Hx Torres's palsy #Hx Parkinson's Management as per primary team. Health Maintenance: Disposition: medtele Fluids: NS Feeding: reg Thrombo prophylaxis: Eliquis 2.5mg BID Gastric Ulcer prophylaxis: none CODE STATUS: DNR Attending Provider Attestation/Addendum Patient seen and examined with resident physician Dr. Smallwood. Note reviewed, agree with findings and recommendations. I saw her in March in my office. Clinically looks rather dehydrated. Agree with gentle IV fluids. Will monitor closely. Thank you Dr. Macias for allowing me to participate in the care of Ms. Bauer
[2024-10-26] MEDS: SODIUM CHLORIDE 0.9% 1000 ML 1,000 ML 75 ML IV (18:09)
[2024-10-26] MEDS: ACETAMINOPHEN 325 MG TABLET 650 MG PO (18:11)
[2024-10-26] MEDS: cefTRIAXone/D5w 1gm IV premix 1 GM/50 ML BAG IV (21:07)
[2024-10-26 22:42] LABS: Phosphorous 3.6 mg/dL (2.4-5.1)
[2024-10-27] VITALS (10 sets, daily range): BP systolic 112–123; BP diastolic 57–70; PULSE 60–85; RESP 17–95; TEMP 36.2–36.8; O2SAT 93–96; BMI 28.9
[2024-10-27 05:56] LABS: Basophils % (Auto) 1 % (0-2.5); Eosinophils # (Auto) 0.1 Thou/mm3 (0.0-0.5); Eosinophils % (Auto) 1 % (0-10); Hematocrit 26.6 % (36.0-46.0); Hemoglobin 9.1 g/dL (12.0-16.0); Immature Granulocytes % (Auto) 1 % (0-0); Immature Granulocytes Auto 0.08 Thou/mm3 (0.00-0.00); Lymphocytes # (Auto) 1.7 Thou/mm3 (1.0-4.8); Lymphocytes % (Auto) 29 % (10-50); Mean Corpuscular HGB Conc 34.2 g/dl (31.0-37.0); Mean Corpuscular Hemoglobin 31.3 pg (25.0-35.0); Mean Corpuscular Volume 91 fL (80-100); Monocytes # (Auto) 0.5 Thou/mm3 (0.0-0.8); Monocytes % (Auto) 8 % (0-12); Neutrophils # (Auto) 3.4 Thou/mm3 (1.8-7.7); Neutrophils % (Auto) 60 % (37-80); Nucleated Red Blood Cell # 0.03 Thou/mm3 (0.00-0.00); Nucleated Red Blood Cell % 1 /100 WBC (0); Platelet Count 187 Thou/mm3 (140-440); RDW Standard Deviation 47.7 fL (36.4-46.3); Red Blood Count 2.91 Miln/mm3 (4.00-5.20); White Blood Count 5.7 Thou/mm3 (3.6-11.0)
[2024-10-27 06:20] LABS: Alanine Aminotransferase 11 U/L (10-49); Albumin, Serum 2.9 gm/dL (3.4-4.8); Albumin/Globulin Ratio 1.5 (1.2-2.2); Alkaline Phosphatase 48 U/L (46-116); Anion Gap 12 (7-16); Aspartate Amino Transferase 33 U/L (0-34); BUN/Creatinine Ratio 56 Ratio (12-20); Bilirubin,Total 0.8 mg/dL (0.3-1.2); Blood Urea Nitrogen 89 mg/dL (9-23); Calcium 8.1 mg/dL (8.3-10.6); Carbon Dioxide 25.9 mMol/L (20.0-31.0); Chloride 104 mMol/L (98-107); Creatinine (Component) 1.6 mg/dL (0.6-1.3); Estimated Creatinine Clearance 24.6 mL/min (>60); Glucose 86 mg/dL (74-106); Osmolality,Calculated 309 (275-295); Potassium 3.5 mMol/L (3.4-5.1); Sodium 142 mMol/L (136-145); Total Protein 4.9 gm/dL (5.7-8.2); eGFR 32 See Note
[2024-10-27] MEDS: APIXABAN 2.5 MG TABLET PO ×2 (08:54→20:46)
[2024-10-27] MEDS: Magnesium Sulfate 2 GM Ivpb 2 GM/50 ML BAG IV (08:54)
[2024-10-27] MEDS: SERTRALINE HCL 25 MG TABLET 50 MG PO (08:54)
--- NOTE | 2024-10-27 09:16 | ESPR_ITS ---
Documentation for date of: 10/27/24 Subjective Subjective Interval history: Cheri Bauer is 84 y/o female with PMHx of HFpEF 50-55%, hypertension, Torres's palsy, Parkinson's presenting to ED due to shaking/twitching while sleeping. Episode noticed by family. Patient sleeping more than usual. Upon awakening however, patient was alert and oriented x 3 with resolution of the twitching. Patient has also had poor oral intake and decreased water intake. Unable to complete ADLs as she is mostly bedbound. Family assists with ADLs along with caregiver including bathing, bathroom, cooking, bills, healthcare apts. Patient needs full support when getting up to use the bathroom. She sees PCP and engineering design manager Dr. Reynolds outpatient. However family is unaware of any recent updates from the providers. Patient has opted to keep family out of healthcare making decisions/sharing any information. Family is unable to provide full care for patient at home and requesting for nursing facility placement. Patient endorses weakness, dysuria. She denies any headache, chest pain, shortness of breath, abdominal pain. In ED, blood pressure 96/56, heart rate 66, afebrile. CBC reveals anemia with hemoglobin 9.5, MCV 88, platelets 182. Sodium on CMP 138, potassium 3.5, BUN 103, creatinine 2.4, glucose 115, GFR 20. Bilirubin slightly elevated 1.5, LDH 1290, BNP 698. Urine toxicology negative, UA positive for UTI with leukocyte esterase and WBC 56, 4+ bacteria. CT cervical spine, CT head negative for any acute changes including fractures or hemorrhage. Admit for further of JANEY, UTI, and placement needs. Nephrology consulted due to JANEY on CKD with uremia. Patient seen and examined at bedside, resting comfortably. Patient continues to endorse dysuria, reports having seen a c 40a crew chief but not followed closely. Has had poor p.o. intake over the past few days. Urinalysis contaminated. Sodium 138, potassium 3.5, bicarb 23.4, BUN 95, creatinine 2.1, EGFR 23. Kidney function improving with IVF. Patient very dry on clinical exam. Patient has suprapubic mass, possible urinary retention. Bladder scan ordered. 10/27/2024: Patient seen examined at bedside, resting comfortably. Bladder scan showed over 500 cc retained urine, Silva cath was placed. Patient states she is feeling well, denies fever, chills, chest pain, nausea, vomiting, dysuria, abdominal pain. Sodium 142, potassium 3.5, bicarb 25.9. BUN 89, creatinine 1.6, EGFR 32. Encouraged oral hydration, will continue to monitor. Exam Vital Signs Temp Pulse Resp BP Pulse Ox O2 Del Method 97.1 F 75 20 114/63 93 L Room Air 10/27/24 08:00 10/27/24 08:00 10/27/24 08:00 10/27/24 08:00 10/27/24 08:00 10/27/24 08:00 Narrative Exam PE: Gen: Well-developed and well-nourished. HEENT: NCAT, PERRLA, EOMI, anicteric conjunctivae. Dry mucous membranes, improved. CVS: normal S1 and S2. RRR. No M/R/G. Resp: CTA B/L. No rhonchi, rales, crackles or wheezing. Abd: soft, non-tender, non-distended. MSK: Good ROM in BUE & BLE. No edema or rash. Significant bruising left forearm. Neuro: CN II-XII grossly intact. Strength 5/5 in BUE & BLE. Alert and oriented x3. Psych: appropriate mood and affect. Objective Labs 10/27/24 04:48 10/27/24 04:48 Labs: Laboratory Results - last 24 hr 10/26/24 10/27/24 21:26 04:48 WBC 5.7 RBC 2.91 L Hgb 9.1 L Hct 26.6 L MCV 91 MCH 31.3 MCHC 34.2 RDW Std Deviation 47.7 H Plt Count 187 Neut % (Auto) 60 Lymph % (Auto) 29 [place] % (Auto) 8 Eos % (Auto) 1 Baso % (Auto) 1 Neut # (Auto) 3.4 Lymph # (Auto) 1.7 [place] # (Auto) 0.5 Eos # (Auto) 0.1 Baso # (Auto) 0.0 Immature Gran # (Auto) 0.08 H Absolute Nucleated RBC 0.03 H Immature Gran % 1 H Nucleated RBC % 1 H Sodium 142 Potassium 3.5 Chloride 104 Carbon Dioxide 25.9 Anion Gap 12 BUN 89 H Creatinine 1.6 H D Estim Creat Clear Calc 24.6 L eGFR 32 L BUN/Creatinine Ratio 56 H Glucose 86 Calculated Osmolality 309 H Calcium 8.1 L Corrected Calcium 9.0 Phosphorus 3.6 Total Bilirubin 0.8 AST 33 ALT 11 Alkaline Phosphatase 48 Total Protein 4.9 L Albumin 2.9 L Globulin 2.0 L Albumin/Globulin Ratio 1.5 Quality Measures Quality Measures VTE prophylaxis Advance care planning discussed with:: patient Assessment & Plan Assessment Current Active Medications: Generic Name Dose Route Start Last Admin Trade Name Freq PRN Reason Stop Dose Admin Acetaminophen 650 mg 10/25/24 21:19 10/26/24 18:11 Acetaminophen 325 Mg Tablet PO 11/24/24 21:18 650 mg Q6H PRN Administration Fever >100.3 or pain Apixaban 2.5 mg 10/25/24 22:00 10/27/24 08:54 Apixaban 2.5 Mg Tablet PO 11/24/24 21:59 2.5 mg BID PRINCESS Administration Ceftriaxone Sodium/Dextrose 1 gm in 50 mls @ 100 mls/hr 10/26/24 21:00 10/26/24 21:37 Rocephin/D5w 1gm Iv Premix IV 11/02/24 20:59 Infused QDAY@2100 PRINCESS Infusion Magnesium Sulfate 2 gm in 50 mls @ 25 mls/hr 10/27/24 08:09 10/27/24 08:54 Magnesium Sulfate Ivpb IV 10/27/24 10:08 25 mls/hr X1 ONE Administration Ondansetron HCl 4 mg 10/25/24 21:19 10/26/24 18:12 Ondansetron Inj 2 Mg/Ml Inj 2 Ml IV 11/24/24 21:18 4 mg Q6H PRN Administration NAUSEA OR VOMITING Protocol Potassium Chloride 40 meq 10/27/24 11:00 Potassium Chloride 20 Meq Tabcr PO 10/27/24 11:01 X1 ONE Sennosides 1 tab 10/25/24 21:19 Senna Tablet PO 11/24/24 21:18 QDAY PRN constipation Protocol Sertraline HCl 50 mg 10/26/24 09:00 10/27/24 08:54 Sertraline Hcl 25 Mg Tablet PO 11/25/24 08:59 50 mg DAILY PRINCESS Administration Plan 84 yr female with PMH of HFpEF 50-55%, hypertension, Torres's palsy, Parkinson's presenting to ED due to shaking/twitching while sleeping. Episode started yesterday noticed by family. Also endorsing decreased oral intake and dehydration. Admit for further of JANEY, UTI, and placement needs. #Acute Kidney injury on CKD stage IV-improving #Uremia eGFR 23, BUN 95, significantly decreased renal function compared to patient's baseline. Patient follows with c 40a crew chief rarely. Patient found to have suprapubic mass on exam. Bladder scan was done, more than 500 cc. Patient appears very dry on exam. Kidney function improved the following day, patient having good urine output with Silva cath. - Silva catheter placed - Avoid nephrotoxins - Renally dose medications - Monitor daily labs - Encourage oral hydration #UTI Patient endorses dysuria. UA positive for UTI with leukocyte esterase and WBC 56, 4+ bacteria, however contaminated. - Ceftriaxone 1 g daily - f/u UCx - Monitor symptoms #Physical Deconditioning #Hx HTN #Hx HFpEF (50-55%) #Hx A-fib, rate controlled #Hx Torres's palsy #Hx Parkinson's Management as per primary team. Feeding: reg Thrombo prophylaxis: Eliquis 2.5mg BID Gastric Ulcer prophylaxis: none CODE STATUS: DNR Thank you for allow us to precipitate in the care of this patient. Plan of care discussed with attending Dr. Anne. Alfredo Yates MD PGY?1 Attending Provider Attestation/Addendum Patient seen and examined with resident physician Dr. Smallwood. Note reviewed, agree with findings and recommendations. I saw her in March in my office. Clinically looks rather dehydrated. Agree with gentle IV fluids. Will monitor closely. 10/27/2024 patient looking more alert and awake. Good urine output with Silva catheter insertion. BUN and creatinine better. Continue with p.o. fluid intake.
[2024-10-27] MEDS: ONDANSETRON INJ 2 MG/ML INJ 2 ML 4 MG IV (09:46)
[2024-10-27] MEDS: MEGESTROL ACET 20 MG TABLET 40 MG PO (09:47)
[2024-10-27] MEDS: PANTOPRAZOLE INJ 40 MG VIAL IVP (10:28)
[2024-10-27] MEDS: POTASSIUM CHLORIDE 20 mEq TABCR 40 MEQ PO (10:53)
--- NOTE | 2024-10-27 12:52 | PC.SS ---
Initial assessment: this is 84 year old female admitted for weakness. Patient is Hard of Hearing and Czech speaking. Patient confirmed demographic information. Patient reports she currently resides with her daughter Seble. Patient seen by medical provider Kurt Woody for primary care. Patient informs she uses home oxygen as needed. Patient also reports having a walker to assist with ambulation. Patient pharmacy is [facility]. Patient would like to discharge back home, family to transport. Patient provided with community resources and reported no concerns at this time. D/c plan: Home Next of kin:daughterSeble
--- NOTE | 2024-10-27 13:54 | ESPR_ITS ---
Documentation for date of: 10/27/24 Subjective Subjective Interval history: Patient seen today at the bedside found awake, alert, orientedx3. No overnight events reported. Vital signs stable at this time. No active complaints stated. Physical therapy order placed, to evaluate physical condition. Patients appetite not great added megace as appetite stimulant. Encouraged oral rehydration. Resumed patients home carvedilol, will add rest of home meds as tolerated. Exam Vital Signs Temp Pulse Resp BP Pulse Ox O2 Del Method 97.7 F 69 17 114/65 93 L Room Air 10/27/24 12:00 10/27/24 12:00 10/27/24 12:00 10/27/24 12:00 10/27/24 12:00 10/27/24 12:00 Narrative Exam Physical Exam GENERAL: NAD, AAOx3, hard of hearing HEENT: Moist mucosa. Eyes open, symmetrical, & clear CARDIO: Heart RRR, no obvious murmurs PULM: No noted coughing/dyspnea CTA B/L, no R/W/R GI: Abdomen soft, nondistended, suprapubic bulge. BSx4 SKIN/MSK/EXT: No wounds/rashes/edema/amputations, no pain on palpation. Pedal pulses present B/L NEURO: AAOx3, no focal neuro deficits, able to move all 4 extremities Objective Labs 10/28/24 04:45 10/28/24 04:45 Labs: Laboratory Results - last 24 hr 10/26/24 10/27/24 21:26 04:48 WBC 5.7 RBC 2.91 L Hgb 9.1 L Hct 26.6 L MCV 91 MCH 31.3 MCHC 34.2 RDW Std Deviation 47.7 H Plt Count 187 Neut % (Auto) 60 Lymph % (Auto) 29 [place] % (Auto) 8 Eos % (Auto) 1 Baso % (Auto) 1 Neut # (Auto) 3.4 Lymph # (Auto) 1.7 [place] # (Auto) 0.5 Eos # (Auto) 0.1 Baso # (Auto) 0.0 Immature Gran # (Auto) 0.08 H Absolute Nucleated RBC 0.03 H Immature Gran % 1 H Nucleated RBC % 1 H Sodium 142 Potassium 3.5 Chloride 104 Carbon Dioxide 25.9 Anion Gap 12 BUN 89 H Creatinine 1.6 H D Estim Creat Clear Calc 24.6 L eGFR 32 L BUN/Creatinine Ratio 56 H Glucose 86 Calculated Osmolality 309 H Calcium 8.1 L Corrected Calcium 9.0 Phosphorus 3.6 Total Bilirubin 0.8 AST 33 ALT 11 Alkaline Phosphatase 48 Total Protein 4.9 L Albumin 2.9 L Globulin 2.0 L Albumin/Globulin Ratio 1.5 Quality Measures Quality Measures VTE prophylaxis Advance care planning discussed with:: patient Assessment & Plan Assessment Current Active Medications: Generic Name Dose Route Start Last Admin Trade Name Freq PRN Reason Stop Dose Admin Acetaminophen 650 mg 10/25/24 21:19 10/26/24 18:11 Acetaminophen 325 Mg Tablet PO 11/24/24 21:18 650 mg Q6H PRN Administration Fever >100.3 or pain Apixaban 2.5 mg 10/25/24 22:00 10/27/24 08:54 Apixaban 2.5 Mg Tablet PO 11/24/24 21:59 2.5 mg BID PRINCESS Administration Carvedilol 6.25 mg 10/27/24 21:00 Carvedilol 3.125 Mg Tablet PO 11/26/24 20:59 BID PRINCESS Ceftriaxone Sodium/Dextrose 1 gm in 50 mls @ 100 mls/hr 10/26/24 21:00 10/26/24 21:37 Rocephin/D5w 1gm Iv Premix IV 11/02/24 20:59 Infused QDAY@2100 PRINCESS Infusion Megestrol Acetate 40 mg 10/27/24 09:30 10/27/24 09:47 Megestrol Acet 20 Mg Tablet PO 11/26/24 09:29 40 mg QDAY PRINCESS Administration Ondansetron HCl 4 mg 10/25/24 21:19 10/27/24 09:46 Ondansetron Inj 2 Mg/Ml Inj 2 Ml IV 11/24/24 21:18 4 mg Q6H PRN Administration NAUSEA OR VOMITING Protocol Pantoprazole Sodium 40 mg 10/27/24 10:00 10/27/24 10:28 Pantoprazole Inj 40 Mg Vial IVP 11/26/24 09:59 40 mg QDAY PRINCESS Administration Sennosides 1 tab 10/25/24 21:19 Senna Tablet PO 11/24/24 21:18 QDAY PRN constipation Protocol Sertraline HCl 50 mg 10/26/24 09:00 10/27/24 08:54 Sertraline Hcl 25 Mg Tablet PO 11/25/24 08:59 50 mg DAILY PRINCESS Administration Plan 84 yr female with PMH of HFpEF 50-55%, hypertension, Torres's palsy, Parkinson's presenting to ED due to shaking/twitching while sleeping. Episode started yesterday noticed by family. Also endorsing decreased oral intake and dehydration. Admit for further of JANEY, UTI, and placement needs. #Acute Kidney injury on CKD stage IV-improving #Uremia #Urinary retention eGFR 23, BUN 95 Bladder scan was done due to suprapubic pain found with more than 350 cc ? Vivas catheter placed ? Oral hydration encouraged ? Avoid nephrotoxins ? Renally dose medications ? Nephrology consulted, appreciate recommendations #UTI Patient denies any symptoms of dysuria. UA positive for UTI with leukocyte esterase and WBC 56, 4+ bacteria. - Ceftriaxone 1 g daily - f/u UCx - Monitor symptoms #Physical Deconditioning Patient mostly bedbound. Requires full-time care from family or caregiver. Unable to complete ADLs without any assistance. [place] to [place] [facility] [place] due to increasing caregiver burden and the patient?s declining functional status. - student support services director consult - Physical therapy assessment #Hx HTN #Hx HFpEF (50-55%) # Hx A-fib, rate controlled Patient's home medications include hydralazine 25 mg 3 times daily, Coreg 6.25 mg, Eliquis 2.5 twice daily, amlodipine 10 mg, metolazone 2.5 mg, furosemide 40 mg - Holding metolazone and furosemide in setting of JANEY - Holding other antihypertensive as blood pressure soft - Daily weights - Eliquis 2.5mg BID #Hx Torres's palsy #Hx Parkinson's - Follow-up outpatient Health Maintenance: Disposition: medtele Fluids: NS Feeding: regular Thrombo prophylaxis: Eliquis 2.5mg BID Gastric Ulcer prophylaxis: none CODE STATUS: DNR Case discussed with my senior Dr. Amezquita and my attending Dr. Gilberto Marti MD PGY-1 Disclaimer: Despite multiple revisions, due to the dictation software being used, the document bellow may not be free of grammatical errors including phonetic/typographic errors. However, this does not deter from our commitment to providing health care in the patient's best interest in mind. Patient examined and case discussed with the team including attending physician. Note reviewed, I agree with the care plan as documented. Ms Bauer is a 84-year-old female admitted for generalized weakness secondary to pneumonia in setting of JANEY on CKD. She was also found to have UTI, 4+ bacteriuria. Patient is on 1 g Rocephin, improving at this time. Bladder scan was done showing over 500 cc of urinary retention. Vivas catheter placed, with symptomatic relief. Sukumar requests SNF as she often confuses her medications at home. student support services director on board, appreciate input. Will continue to monitor on IV antibiotics, and IV fluid hydration as she appears dry. Holding her home metolazone and Lasix. Physical therapy ordered for further evaluation. Please refer to the note above for further details. - Arie Amezquita MD, PGY 2 Disclaimer: The document may contain phonetic/typographic errors due to voice recognition software. These errors are purely due to imperfections in the software program and should not be misconstrued in any way to compromise the substance of the patient's medical care during this visit. L Attending Provider Attestation/Addendum I, Jazmín Macias DO, attest that I was physically present for the hoff portions of the service and evaluated the patient with the resident and I reviewed and discussed the case with the resident and agree with the resident's findings and plans of care as documented above Patient seen and eval this a.m. She states that she is feeling improved. No acute events overnight. Renal function has been improving. Encourage oral hydration. Will have patient work with physical therapy. She will likely need SNF on discharge as she is unable to care for self. Will keep vivas in place.
--- NOTE | 2024-10-27 15:28 | PC.SS ---
Addendum entered by FRANCIS Rinaldi 10/27/24 17:01: Ss follow up: Patient's preferred SNF is [facility]. Addendum entered by FRANCIS Rinaldi 10/27/24 16:49: PASRR completed. Addendum entered by FRANCIS Rinaldi 10/27/24 16:47: SNF inquiry sent via [employer]. Pending responses. Original Note: Rounding note: PT eval pending. Family requesting SNF.
[2024-10-27] MEDS: cefTRIAXone/D5w 1gm IV premix 1 GM/50 ML BAG IV (20:39)
[2024-10-27] MEDS: carVEDILOL 3.125 MG TABLET 6.25 MG PO (20:45)
[2024-10-28] VITALS (10 sets, daily range): BP systolic 102–142; BP diastolic 62–76; PULSE 72–95; RESP 15–94; TEMP 36.1–36.7; O2SAT 92–95
[2024-10-28] MEDS: ACETAMINOPHEN 325 MG TABLET 650 MG PO (03:45)
[2024-10-28 05:55] LABS: Basophils # (Auto) 0.1 Thou/mm3 (0.0-0.2); Basophils % (Auto) 1 % (0-2.5); Eosinophils # (Auto) 0.1 Thou/mm3 (0.0-0.5); Eosinophils % (Auto) 2 % (0-10); Hematocrit 27.9 % (36.0-46.0); Hemoglobin 9.2 g/dL (12.0-16.0); Immature Granulocytes % (Auto) 2 % (0-0); Immature Granulocytes Auto 0.12 Thou/mm3 (0.00-0.00); Lymphocytes # (Auto) 1.6 Thou/mm3 (1.0-4.8); Lymphocytes % (Auto) 28 % (10-50); Mean Corpuscular Hemoglobin 30.9 pg (25.0-35.0); Mean Corpuscular Volume 94 fL (80-100); Monocytes # (Auto) 0.5 Thou/mm3 (0.0-0.8); Monocytes % (Auto) 9 % (0-12); Neutrophils # (Auto) 3.3 Thou/mm3 (1.8-7.7); Neutrophils % (Auto) 58 % (37-80); Nucleated Red Blood Cell # 0.02 Thou/mm3 (0.00-0.00); Nucleated Red Blood Cell % 0 /100 WBC (0); Platelet Count 187 Thou/mm3 (140-440); RDW Standard Deviation 50.6 fL (36.4-46.3); Red Blood Count 2.98 Miln/mm3 (4.00-5.20); White Blood Count 5.7 Thou/mm3 (3.6-11.0)
[2024-10-28 06:16] LABS: Alanine Aminotransferase 10 U/L (10-49); Albumin/Globulin Ratio 1.4 (1.2-2.2); Alkaline Phosphatase 63 U/L (46-116); Anion Gap 12 (7-16); Aspartate Amino Transferase 33 U/L (0-34); BUN/Creatinine Ratio 59 Ratio (12-20); Bilirubin,Total 0.8 mg/dL (0.3-1.2); Blood Urea Nitrogen 82 mg/dL (9-23); Calcium 8.3 mg/dL (8.3-10.6); Calcium (Corrected) 9.1 mg/dL (8.5-10.1); Carbon Dioxide 25.5 mMol/L (20.0-31.0); Chloride 107 mMol/L (98-107); Creatinine (Component) 1.4 mg/dL (0.6-1.3); Estimated Creatinine Clearance 27.5 mL/min (>60); Globulin 2.1 gm/dL (2.3-3.5); Glucose 104 mg/dL (74-106); Magnesium 2.2 mg/dL (1.6-2.6); Osmolality,Calculated 311 (275-295); Phosphorous 2.1 mg/dL (2.4-5.1); Sodium 144 mMol/L (136-145); Total Protein 5.1 gm/dL (5.7-8.2); eGFR 37 See Note
[2024-10-28] MEDS: SERTRALINE HCL 25 MG TABLET 50 MG PO (08:37)
[2024-10-28] MEDS: MEGESTROL ACET 20 MG TABLET 40 MG PO (08:37)
[2024-10-28] MEDS: APIXABAN 2.5 MG TABLET PO ×2 (08:38→21:03)
[2024-10-28] MEDS: amLODIPine BESYLATE 5 MG TABLET 10 MG PO (08:38)
[2024-10-28] MEDS: PANTOPRAZOLE 40 MG TABLET PO (08:38)
[2024-10-28] MEDS: carVEDILOL 3.125 MG TABLET 6.25 MG PO ×2 (08:38→16:51)
[2024-10-28] MEDS: ONDANSETRON INJ 2 MG/ML INJ 2 ML 4 MG IV (08:51)
--- NOTE | 2024-10-28 09:04 | ESPR_ITS ---
Documentation for date of: 10/28/24 Subjective Subjective Interval history: Cheri Bauer is 84 y/o female with PMHx of HFpEF 50-55%, hypertension, Torres's palsy, Parkinson's presenting to ED due to shaking/twitching while sleeping. Episode noticed by family. Patient sleeping more than usual. Upon awakening however, patient was alert and oriented x 3 with resolution of the twitching. Patient has also had poor oral intake and decreased water intake. Unable to complete ADLs as she is mostly bedbound. Family assists with ADLs along with caregiver including bathing, bathroom, cooking, bills, healthcare apts. Patient needs full support when getting up to use the bathroom. She sees PCP and apartment assistant manager Dr. Reynolds outpatient. However family is unaware of any recent updates from the providers. Patient has opted to keep family out of healthcare making decisions/sharing any information. Family is unable to provide full care for patient at home and requesting for nursing facility placement. Patient endorses weakness, dysuria. She denies any headache, chest pain, shortness of breath, abdominal pain. In ED, blood pressure 96/56, heart rate 66, afebrile. CBC reveals anemia with hemoglobin 9.5, MCV 88, platelets 182. Sodium on CMP 138, potassium 3.5, BUN 103, creatinine 2.4, glucose 115, GFR 20. Bilirubin slightly elevated 1.5, LDH 1290, BNP 698. Urine toxicology negative, UA positive for UTI with leukocyte esterase and WBC 56, 4+ bacteria. CT cervical spine, CT head negative for any acute changes including fractures or hemorrhage. Admit for further of JANEY, UTI, and placement needs. Nephrology consulted due to JANEY on CKD with uremia. Patient seen and examined at bedside, resting comfortably. Patient continues to endorse dysuria, reports having seen a nailing machine operator automatic but not followed closely. Has had poor p.o. intake over the past few days. Urinalysis contaminated. Sodium 138, potassium 3.5, bicarb 23.4, BUN 95, creatinine 2.1, EGFR 23. Kidney function improving with IVF. Patient very dry on clinical exam. Patient has suprapubic mass, possible urinary retention. Bladder scan ordered. 10/27/2024: Patient seen examined at bedside, resting comfortably. Bladder scan showed over 500 cc retained urine, Silva cath was placed. Patient states she is feeling well, denies fever, chills, chest pain, nausea, vomiting, dysuria, abdominal pain. Sodium 142, potassium 3.5, bicarb 25.9. BUN 89, creatinine 1.6, EGFR 32. Encouraged oral hydration, will continue to monitor. 10/28/2024: Patient seen and examined at bedside, resting comfortably. Patient has had good urine output with Silva cath. Patient HDS feeling well overall, denying fever chills chest pain nausea and vomiting. Sodium 144, potassium 4.0, bicarb 25.5, BUN 82, creatinine 1.4, EGFR 37. Encourage oral hydration. Patient is okay to discharge from nephrology perspective. Exam Vital Signs Temp Pulse Resp BP Pulse Ox O2 Del Method 97.0 F 75 17 132/75 H 93 L Room Air 10/28/24 08:00 10/28/24 08:38 10/28/24 08:00 10/28/24 08:38 10/28/24 08:00 10/28/24 08:00 Narrative Exam PE: Gen: Well-developed and well-nourished. HEENT: NCAT, PERRLA, EOMI, anicteric conjunctivae. Dry mucous membranes, improved. CVS: normal S1 and S2. RRR. No M/R/G. Resp: CTA B/L. No rhonchi, rales, crackles or wheezing. Abd: soft, non-tender, non-distended. MSK: Good ROM in BUE & BLE. No edema or rash. Significant bruising left forearm. Neuro: CN II-XII grossly intact. Strength 5/5 in BUE & BLE. Alert and oriented x3. Psych: appropriate mood and affect. Objective Labs 10/29/24 05:03 10/29/24 05:03 Labs: Laboratory Results - last 24 hr 10/28/24 04:45 WBC 5.7 RBC 2.98 L Hgb 9.2 L Hct 27.9 L MCV 94 MCH 30.9 MCHC 33.0 RDW Std Deviation 50.6 H Plt Count 187 Neut % (Auto) 58 Lymph % (Auto) 28 [place] % (Auto) 9 Eos % (Auto) 2 Baso % (Auto) 1 Neut # (Auto) 3.3 Lymph # (Auto) 1.6 [place] # (Auto) 0.5 Eos # (Auto) 0.1 Baso # (Auto) 0.1 Immature Gran # (Auto) 0.12 H Absolute Nucleated RBC 0.02 H Immature Gran % 2 H Nucleated RBC % 0 Sodium 144 Potassium 4.0 D Chloride 107 Carbon Dioxide 25.5 Anion Gap 12 BUN 82 H Creatinine 1.4 H Estim Creat Clear Calc 27.5 L eGFR 37 L BUN/Creatinine Ratio 59 H Glucose 104 Calculated Osmolality 311 H Calcium 8.3 Corrected Calcium 9.1 Phosphorus 2.1 L Magnesium 2.2 Total Bilirubin 0.8 AST 33 ALT 10 Alkaline Phosphatase 63 D Total Protein 5.1 L Albumin 3.0 L Globulin 2.1 L Albumin/Globulin Ratio 1.4 Quality Measures Quality Measures VTE prophylaxis Advance care planning discussed with:: patient Assessment & Plan Assessment Current Active Medications: Generic Name Dose Route Start Last Admin Trade Name Freq PRN Reason Stop Dose Admin Acetaminophen 650 mg 10/25/24 21:19 10/28/24 03:45 Acetaminophen 325 Mg Tablet PO 11/24/24 21:18 650 mg Q6H PRN Administration Fever >100.3 or pain Amlodipine Besylate 10 mg 10/28/24 09:00 10/28/24 08:38 Amlodipine Besylate 5 Mg Tablet PO 11/27/24 08:59 10 mg DAILY PRINCESS Administration Apixaban 2.5 mg 10/25/24 22:00 10/28/24 08:38 Apixaban 2.5 Mg Tablet PO 11/24/24 21:59 2.5 mg BID PRINCESS Administration Carvedilol 6.25 mg 10/27/24 21:00 10/28/24 08:38 Carvedilol 3.125 Mg Tablet PO 11/26/24 20:59 6.25 mg BID PRINCESS Administration Ceftriaxone Sodium/Dextrose 1 gm in 50 mls @ 100 mls/hr 10/26/24 21:00 10/27/24 21:09 Rocephin/D5w 1gm Iv Premix IV 11/02/24 20:59 Infused QDAY@2100 PRINCESS Infusion Megestrol Acetate 40 mg 10/27/24 09:30 10/28/24 08:37 Megestrol Acet 20 Mg Tablet PO 11/26/24 09:29 40 mg QDAY PRINCESS Administration Ondansetron HCl 4 mg 10/25/24 21:19 05/15/25 08:51 Ondansetron Inj 2 Mg/Ml Inj 2 Ml IV 11/24/24 21:18 4 mg Q6H PRN Administration NAUSEA OR VOMITING Protocol Pantoprazole Sodium 40 mg 10/28/24 09:00 10/28/24 08:38 Pantoprazole 40 Mg Tablet PO 11/26/24 09:59 40 mg QDAY PRINCESS Administration Sennosides 1 tab 10/25/24 21:19 Senna Tablet PO 11/24/24 21:18 QDAY PRN constipation Protocol Sertraline HCl 50 mg 10/26/24 09:00 10/28/24 08:37 Sertraline Hcl 25 Mg Tablet PO 11/25/24 08:59 50 mg DAILY PRINCESS Administration Plan 84 yr female with PMH of HFpEF 50-55%, hypertension, Torres's palsy, Parkinson's presenting to ED due to shaking/twitching while sleeping. Episode started yesterday noticed by family. Also endorsing decreased oral intake and dehydration. Admit for further of JANEY, UTI, and placement needs. #Acute Kidney injury on CKD stage IV-improving #Uremia eGFR 23, BUN 95, significantly decreased renal function compared to patient's baseline. Patient follows with nailing machine operator automatic rarely. Patient found to have suprapubic mass on exam. Bladder scan was done, more than 500 cc. Patient appears very dry on exam. Kidney function improved the following day, patient having good urine output with Silva cath. - Silva catheter placed - Avoid nephrotoxins - Renally dose medications - Monitor daily labs - Encourage oral hydration - Patient is okay to discharge from nephrology perspective #UTI Patient endorses dysuria. UA positive for UTI with leukocyte esterase and WBC 56, 4+ bacteria, however contaminated. - Ceftriaxone 1 g daily - f/u UCx - Monitor symptoms #Physical Deconditioning #Hx HTN #Hx HFpEF (50-55%) #Hx A-fib, rate controlled #Hx Torres's palsy #Hx Parkinson's Management as per primary team. Feeding: reg Thrombo prophylaxis: Eliquis 2.5mg BID Gastric Ulcer prophylaxis: none CODE STATUS: DNR Thank you for allow us to precipitate in the care of this patient. Plan of care discussed with attending Dr. Anne. Alfredo Yates MD PGY?1 Attending Provider Attestation/Addendum Patient seen and examined with resident physician Dr. Smallwood. Note reviewed, agree with findings and recommendations.
--- NOTE | 2024-10-28 10:10 | PC.SS ---
SS update: received call from Lexis at [facility], who informed she is willing to accept the patient and begin working on insurance authorization for SNF placement.
--- NOTE | 2024-10-28 11:57 | PD.RESPRO ---
Documentation for date of: 10/28/24 Subjective Subjective Interval history: Patient seen today at the bedside found awake, alert, orientedx3. No active complaints at this time. No overnight events reported. Vitals and labs reviewed. Resume patient's home amlodipine, discontinue patient's Silva catheter will evaluate for urinary retention with bladder training/bladder scan. Started the patient on tamsulosin as well. Patient is encouraged to have at least 2L of oral hydration, nephrology team also agrees. Patient is pending insurance authorization for group home facility at [facility]. Exam Vital Signs Temp Pulse Resp BP Pulse Ox O2 Del Method 97.0 F 75 17 132/75 H 93 L Room Air 10/28/24 08:00 10/28/24 08:38 10/28/24 08:00 10/28/24 08:38 10/28/24 08:00 10/28/24 08:00 Narrative Exam Physical Exam GENERAL: NAD, AAOx3, hard of hearing HEENT: Moist mucosa. Eyes open, symmetrical, & clear CARDIO: Heart RRR, no obvious murmurs PULM: No noted coughing/dyspnea CTA B/L, no R/W/R GI: Abdomen soft, nondistended, suprapubic bulge. BSx4 SKIN/MSK/EXT: No wounds/rashes/edema/amputations, no pain on palpation. Pedal pulses present B/L NEURO: AAOx3, no focal neuro deficits, able to move all 4 extremities Objective Labs 10/28/24 04:45 10/28/24 04:45 Labs: Laboratory Results - last 24 hr 10/28/24 04:45 WBC 5.7 RBC 2.98 L Hgb 9.2 L Hct 27.9 L MCV 94 MCH 30.9 MCHC 33.0 RDW Std Deviation 50.6 H Plt Count 187 Neut % (Auto) 58 Lymph % (Auto) 28 [place] % (Auto) 9 Eos % (Auto) 2 Baso % (Auto) 1 Neut # (Auto) 3.3 Lymph # (Auto) 1.6 [place] # (Auto) 0.5 Eos # (Auto) 0.1 Baso # (Auto) 0.1 Immature Gran # (Auto) 0.12 H Absolute Nucleated RBC 0.02 H Immature Gran % 2 H Nucleated RBC % 0 Sodium 144 Potassium 4.0 D Chloride 107 Carbon Dioxide 25.5 Anion Gap 12 BUN 82 H Creatinine 1.4 H Estim Creat Clear Calc 27.5 L eGFR 37 L BUN/Creatinine Ratio 59 H Glucose 104 Calculated Osmolality 311 H Calcium 8.3 Corrected Calcium 9.1 Phosphorus 2.1 L Magnesium 2.2 Total Bilirubin 0.8 AST 33 ALT 10 Alkaline Phosphatase 63 D Total Protein 5.1 L Albumin 3.0 L Globulin 2.1 L Albumin/Globulin Ratio 1.4 Quality Measures Quality Measures VTE prophylaxis Assessment & Plan Assessment Current Active Medications: Generic Name Dose Route Start Last Admin Trade Name Freq PRN Reason Stop Dose Admin Acetaminophen 650 mg 10/25/24 21:19 10/28/24 03:45 Acetaminophen 325 Mg Tablet PO 11/24/24 21:18 650 mg Q6H PRN Administration Fever >100.3 or pain Amlodipine Besylate 10 mg 10/28/24 09:00 10/28/24 08:38 Amlodipine Besylate 5 Mg Tablet PO 11/27/24 08:59 10 mg DAILY PRINCESS Administration Apixaban 2.5 mg 10/25/24 22:00 10/28/24 08:38 Apixaban 2.5 Mg Tablet PO 11/24/24 21:59 2.5 mg BID PRINCESS Administration Carvedilol 6.25 mg 10/28/24 17:30 Carvedilol 3.125 Mg Tablet PO 11/26/24 20:59 BIDWM PRINCESS Ceftriaxone Sodium/Dextrose 1 gm in 50 mls @ 100 mls/hr 10/26/24 21:00 10/27/24 21:09 Rocephin/D5w 1gm Iv Premix IV 11/02/24 20:59 Infused QDAY@2100 PRINCESS Infusion Megestrol Acetate 40 mg 10/27/24 09:30 10/28/24 08:37 Megestrol Acet 20 Mg Tablet PO 11/26/24 09:29 40 mg QDAY PRINCESS Administration Ondansetron HCl 4 mg 10/25/24 21:19 10/28/24 08:51 Ondansetron Inj 2 Mg/Ml Inj 2 Ml IV 11/24/24 21:18 4 mg Q6H PRN Administration NAUSEA OR VOMITING Protocol Pantoprazole Sodium 40 mg 10/28/24 09:00 10/28/24 08:38 Pantoprazole 40 Mg Tablet PO 11/26/24 09:59 40 mg QDAY PRINCESS Administration Sennosides 1 tab 10/25/24 21:19 Senna Tablet PO 11/24/24 21:18 QDAY PRN constipation Protocol Sertraline HCl 50 mg 10/26/24 09:00 10/28/24 08:37 Sertraline Hcl 25 Mg Tablet PO 11/25/24 08:59 50 mg DAILY PRINCESS Administration Tamsulosin HCl 0.4 mg 10/28/24 09:45 Tamsulosin Hcl 0.4 Mg Capsule PO 11/27/24 09:44 QDAY PRINCESS Plan 84 yr female with PMH of HFpEF 50-55%, hypertension, Torres's palsy, Parkinson's presenting to ED due to shaking/twitching while sleeping. Episode started yesterday noticed by family. Also endorsing decreased oral intake and dehydration. Admit for further of JANEY, UTI, and placement needs. #Acute Kidney injury on CKD stage IV-improving #Uremia #Urinary retention eGFR 23, BUN 95 Bladder scan was done due to suprapubic pain found with more than 350 cc ? Silva catheter placed ? Oral hydration encouraged ? Avoid nephrotoxins ? Renally dose medications ? Nephrology consulted, appreciate recommendations #UTI Patient denies any symptoms of dysuria. UA positive for UTI with leukocyte esterase and WBC 56, 4+ bacteria. - Ceftriaxone 1 g daily - f/u UCx - Monitor symptoms #Physical Deconditioning Patient mostly bedbound. Requires full-time care from family or caregiver. Unable to complete ADLs without any assistance. Family wants to pursuing penit[facility]iary placement due to increasing caregiver burden and the patient?s declining functional status. - advisory services associate consult - Physical therapy assessment #Hx HTN #Hx HFpEF (50-55%) # Hx A-fib, rate controlled Patient's home medications include hydralazine 25 mg 3 times daily, Coreg 6.25 mg, Eliquis 2.5 twice daily, amlodipine 10 mg, metolazone 2.5 mg, furosemide 40 mg - Holding metolazone and furosemide in setting of JANEY - Holding other antihypertensive as blood pressure soft - Daily weights - Eliquis 2.5mg BID #Hx Torres's palsy #Hx Parkinson's - Follow-up outpatient Health Maintenance: Disposition: medtele Fluids: NS Feeding: regular Thrombo prophylaxis: Eliquis 2.5mg BID Gastric Ulcer prophylaxis: none CODE STATUS: DNR Case discussed with my senior Dr. Amezquita and my attending Dr. Gilberto Marti MD PGY-1 Disclaimer: Despite multiple revisions, due to the dictation software being used, the document bellow may not be free of grammatical errors including phonetic/typographic errors. However, this does not deter from our commitment to providing health care in the patient's best interest in mind.
[2024-10-28] MEDS: TAMSULOSIN HCL 0.4 MG CAPSULE PO (12:42)
--- NOTE | 2024-10-28 14:25 | PC.NURSE ---
Bladder scan 0 ml.
--- NOTE | 2024-10-28 14:45 | PC.NURSE ---
Bladder scan 0ML
--- NOTE | 2024-10-28 14:48 | ESDS_ITS ---
<Statement entered by Jazmín Macias DO - 10/28/24 15:53> I, Jazmín Macias DO, attest that I was physically present for the hoff portions of the service and evaluated the patient with the resident and I reviewed and discussed the case with the resident and agree with the resident's findings and plans of care as documented above Planned Discharge Date 10/28/24 DS: Providers Provider Date of admission: 10/25/24 21:06 Primary care physician: Kurt Woody MD Admitting Provider: Navarro Sutherland MD Attending Provider on Admission: Jazmín Macias DO Consults: 10/25/24 21:22 Referral Physical Therapy Routine Comment: Physician Instructions: 10/26/24 08:17 Consult to Nephrology Stat Comment: CKD/uremia Consulting Provider: Maico Anne 10/27/24 02:55 Referral Registered Dietitian Routine Comment: 10/27/24 02:56 Referral Wound Care Routine Comment: 10/27/24 09:10 Referral Physical Therapy Routine Comment: Physician Instructions: Attending Provider on DC: Jazmín Macias DO Discharging Provider: Tadeo Marti MD Anticipated date of discharge: 10/28/24 DS: Diagnosis Problem List Completed Was Problem List Reviewed/Reconciled?: Yes Hospital Course Hospital Course Hospital course: 84-year-old female with past medical history of HFpEF 5055%, hypertension, Torres's palsy, Parkinson's who presented to the ED due to shaking twitching. Patient was admitted for uremia, JANEY, UTI. During hospital stay patient was found with urinary retention for which Silva catheter was placed. Was given IV fluids. Nephrology was consulted to evaluate uremia. For patient's UTI patient was given IV antibiotics. Later on the Silva's catheter was removed and patient was given bladder training. At this time patient is medically stable for discharge. Follow up with primary care physician within 1 week of discharge. Follow up with Nephrology within 2 weeks of discharge. Patient is encouraged to drink 2L of fluids per day Should any symptoms recur or worsen patient is instructed to return to the ED. Problem List: #Uremia #Acute Dehydration #Acute Kidney injury on CKD stage IV-improving #Urinary retention #UTI #Physical Deconditioning #Hx HTN #Hx HFpEF (50-55%) #Hx A-fib, rate controlled #Hx Torres's palsy #Hx Parkinson's Case discussed with my attending Dr. Gilberto Marti MD PGY-1 Status at Discharge Functional status at discharge: uses cane/walker Overall status at discharge: patient is back to baseline Time Spent with Patient Time attestation: Total time spent providing and/or coordinating discharge services: Time spent: Greater than 30 minutes Exam Vital Signs Temp Pulse Resp BP Pulse Ox O2 Del Method 97.8 F 83 18 108/62 94 L Room Air 10/28/24 12:00 10/28/24 13:44 10/28/24 13:44 10/28/24 12:00 10/28/24 12:00 10/28/24 12:00 Narrative Exam Physical Exam GENERAL: NAD, AAOx3, hard of hearing HEENT: Moist mucosa. Eyes open, symmetrical, & clear CARDIO: Heart RRR, no obvious murmurs PULM: No noted coughing/dyspnea CTA B/L, no R/W/R GI: Abdomen soft, nondistended, suprapubic bulge. BSx4 SKIN/MSK/EXT: No wounds/rashes/edema/amputations, no pain on palpation. Pedal pulses present B/L NEURO: AAOx3, no focal neuro deficits, able to move all 4 extremities Discharge Plan Plan Patient Disposition: Xfer Skilled Nsg Fac (SNF) Patient condition on transfer: Stable Care Plan Goals: Follow up with primary care physician within 1 week of discharge Follow up with Nephrology within 2 weeks of discharge Patient is encouraged to drink 2L of fluids per day Lasix and metolazone, on hold until seen by nephrology Should any symptoms recur or worsen patient is instructed to return to the ED. Prescriptions/Referrals Prescriptions/Med Rec: Continued amlodipine 10 mg tablet 10 mg PO DAILY Patient Comments: TAKE 1 TABLET BY MOUTH DAILY lisinopril 40 mg tablet 40 mg PO DAILY Patient Comments: TAKE 1 TABLET BY MOUTH EVERY MORNING ondansetron 4 mg tablet,disintegrating 4 mg PO [id number] PRN (Reason: nausea and vomiting) carvedilol 6.25 mg tablet 6.25 mg PO BID Patient Comments: TAKE 1 TABLET BY MOUTH TWICE DAILY Eliquis 2.5 mg tablet 2.5 mg PO BID Patient Comments: TAKE 1 TABLET BY MOUTH TWICE DAILY hydralazine 25 mg tablet 25 mg PO TID Patient Comments: TAKE 1 TABLET BY MOUTH THREE TIMES DAILY Held metolazone 2.5 mg tablet 2.5 mg PO QDAY Hold Instructions: Resume on 11/11/24. Hold until seen by Nephrology Patient Comments: TAKE 1 TABLET BY MOUTH EVERY DAY AT 2 PM FOR LEG SWELLING furosemide 40 mg tablet 40 mg PO QDAY Hold Instructions: Resume on 11/11/24. till evaluated by nephrology Referrals: Kurt Woody MD [Primary Care Provider] - Patient/Caregiver Discharge Instructions Print Language: Serbian Stand Alone Forms: [facility] Award Info., Patient Portal Info Letter Quality Discharge Quality Measures VTE prophylaxis
[2024-10-28] MEDS: cefTRIAXone/D5w 1gm IV premix 1 GM/50 ML BAG IV (21:03)
[2024-10-28] MEDS: ALBUTEROL/IPRATROPIUM (Duoneb) RT SOL 3 ML NEBU INH (23:44)
[2024-10-29] VITALS (10 sets, daily range): BP systolic 110–131; BP diastolic 58–68; PULSE 60–85; RESP 17–21; TEMP 36.1–37.3; O2SAT 92–96
[2024-10-29] MEDS: ACETAMINOPHEN 325 MG TABLET 650 MG PO (01:06)
[2024-10-29 06:22] LABS: Basophils % (Auto) 1 % (0-2.5); Eosinophils # (Auto) 0.1 Thou/mm3 (0.0-0.5); Eosinophils % (Auto) 2 % (0-10); Hematocrit 26.7 % (36.0-46.0); Hemoglobin 8.9 g/dL (12.0-16.0); Immature Granulocytes % (Auto) 2 % (0-0); Immature Granulocytes Auto 0.12 Thou/mm3 (0.00-0.00); Lymphocytes % (Auto) 31 % (10-50); Mean Corpuscular HGB Conc 33.3 g/dl (31.0-37.0); Mean Corpuscular Hemoglobin 31.4 pg (25.0-35.0); Mean Corpuscular Volume 94 fL (80-100); Monocytes # (Auto) 0.6 Thou/mm3 (0.0-0.8); Monocytes % (Auto) 9 % (0-12); Neutrophils # (Auto) 3.6 Thou/mm3 (1.8-7.7); Neutrophils % (Auto) 56 % (37-80); Nucleated Red Blood Cell # 0.03 Thou/mm3 (0.00-0.00); Nucleated Red Blood Cell % 1 /100 WBC (0); Platelet Count 159 Thou/mm3 (140-440); RDW Standard Deviation 51.4 fL (36.4-46.3); Red Blood Count 2.83 Miln/mm3 (4.00-5.20); White Blood Count 6.4 Thou/mm3 (3.6-11.0)
[2024-10-29 07:01] LABS: Alanine Aminotransferase 10 U/L (10-49); Albumin, Serum 3.1 gm/dL (3.4-4.8); Albumin/Globulin Ratio 1.5 (1.2-2.2); Alkaline Phosphatase 69 U/L (46-116); Anion Gap 11 (7-16); Aspartate Amino Transferase 37 U/L (0-34); BUN/Creatinine Ratio 59 Ratio (12-20); Bilirubin,Total 0.8 mg/dL (0.3-1.2); Blood Urea Nitrogen 77 mg/dL (9-23); Calcium 8.7 mg/dL (8.3-10.6); Calcium (Corrected) 9.4 mg/dL (8.5-10.1); Carbon Dioxide 26.5 mMol/L (20.0-31.0); Chloride 107 mMol/L (98-107); Creatinine (Component) 1.3 mg/dL (0.6-1.3); Estimated Creatinine Clearance 29.6 mL/min (>60); Globulin 2.1 gm/dL (2.3-3.5); Glucose 97 mg/dL (74-106); Magnesium 2.2 mg/dL (1.6-2.6); Osmolality,Calculated 309 (275-295); Phosphorous 1.8 mg/dL (2.4-5.1); Potassium 4.2 mMol/L (3.4-5.1); Sodium 144 mMol/L (136-145); Total Protein 5.2 gm/dL (5.7-8.2); eGFR 41 See Note
[2024-10-29] MEDS: carVEDILOL 3.125 MG TABLET 6.25 MG PO ×2 (09:26→18:39)
[2024-10-29] MEDS: MEGESTROL ACET 20 MG TABLET 40 MG PO (09:27)
[2024-10-29] MEDS: APIXABAN 2.5 MG TABLET PO ×2 (09:27→20:11)
[2024-10-29] MEDS: SERTRALINE HCL 25 MG TABLET 50 MG PO (09:27)
[2024-10-29] MEDS: TAMSULOSIN HCL 0.4 MG CAPSULE PO (09:27)
[2024-10-29] MEDS: PANTOPRAZOLE 40 MG TABLET PO (09:27)
[2024-10-29] MEDS: amLODIPine BESYLATE 5 MG TABLET 10 MG PO (09:27)
--- NOTE | 2024-10-29 10:00 | PC.SS ---
Addendum entered by Rox Adams 10/29/24 16:03: SS received a call that we have authorization. SS coordintaed with [facility] and set up transport for 6p.m. Left daughter a message for Seble @ [phone] Original Note: Follow up note: SS followed up with daughter, Seble, to discuss d/c plans. SS explained to daughter that we still do not have authorization from insurance. SS explained that [facility] called late yesterday to inform that they no longer have a bed available. They still did not have auth. Offered additional options. Daughter still wants SNF. Declined HH. They prefer [facility] or [facility]. [facility] has no beds available. [facility] agreed to accept and will start working on auth now. [place] [facility] [place] [email or web address] and faxed updated d/c orders and clinicals. Patient is ready for d/c
--- NOTE | 2024-10-29 14:34 | PC.SS ---
SS assisted in seeking SNF placement for short term rehab. SS expanded search to 70 mile radius from [facility] on [address]. Rox from SS is aware.
--- NOTE | 2024-10-29 15:22 | XR_ITS ---
Examination: Duplex scan of the upper extremity, unilateral left Date and time of exam: October 29, 2024 1627 hours INDICATIONS: Left arm redness 3 months swelling and pain in the left arm today Technique: Duplex scan of the extremity veins using B-mode/grayscale imaging and Doppler spectral analysis and color flow Attention is directed to internal echogenicity, compression and augmentation involving these veins, color flow assessment, spectral analysis Findings: Major deep venous structures in the extremity demonstrate normal course and caliber. There is no evidence of deep vein thrombosis. Normal color flow and spectral analysis Impression: Negative for DVT..
--- NOTE | 2024-10-29 17:25 | ESDS_ITS ---
Planned Discharge Date 10/29/24 DS: Providers Provider Date of admission: 10/25/24 21:06 Primary care physician: Kurt Woody MD Admitting Provider: Navarro Sutherland MD Attending Provider on Admission: Rolando Gerber MD Consults: 10/25/24 21:22 Referral Physical Therapy Routine Comment: Physician Instructions: 10/26/24 08:17 Consult to Nephrology Stat Comment: CKD/uremia Consulting Provider: Maico Anne 10/27/24 02:55 Referral Registered Dietitian Routine Comment: 10/27/24 02:56 Referral Wound Care Routine Comment: 10/27/24 09:10 Referral Physical Therapy Routine Comment: Physician Instructions: Attending Provider on DC: Rolando Gerber MD Discharging Provider: Tadeo Marti MD Anticipated date of discharge: 10/29/24 DS: Diagnosis Problem List Completed Was Problem List Reviewed/Reconciled?: Yes Hospital Course Hospital Course Hospital course: 84-year-old female with past medical history of HFpEF 5055%, hypertension, Torres's palsy, Parkinson's who presented to the ED due to shaking twitching. Patient was admitted for uremia, JANEY, UTI. During hospital stay patient was found with urinary retention for which Silva catheter was placed. Was given IV fluids. Nephrology was consulted to evaluate uremia. For patient's UTI patient was given IV antibiotics. Later on the Silva's catheter was removed and patient was given bladder training. At this time patient is medically stable for discharge. Follow up with primary care physician within 1 week of discharge. Follow up with Nephrology within 2 weeks of discharge. Patient is encouraged to drink 2L of fluids per day Should any symptoms recur or worsen patient is instructed to return to the ED. Problem List: #Uremia #Acute Dehydration #Acute Kidney injury on CKD stage IV-improving #Urinary retention #UTI #Physical Deconditioning #Hx HTN #Hx HFpEF (50-55%) #Hx A-fib, rate controlled #Hx Torres's palsy #Hx Parkinson's Case discussed with my attending Dr. Buzz Marti MD PGY-1 Status at Discharge Functional status at discharge: independent ambulation Overall status at discharge: patient is back to baseline Time Spent with Patient Time attestation: Total time spent providing and/or coordinating discharge services: Time spent: Greater than 30 minutes Exam Vital Signs Temp Pulse Resp BP Pulse Ox O2 Del Method 98.4 F 60 17 110/60 95 Room Air 10/29/24 16:00 10/29/24 16:00 10/29/24 16:00 10/29/24 16:00 10/29/24 16:00 10/29/24 16:00 Narrative Exam Physical Exam GENERAL: NAD, AAOx3, hard of hearing HEENT: Moist mucosa. Eyes open, symmetrical, & clear CARDIO: Heart RRR, no obvious murmurs PULM: No noted coughing/dyspnea CTA B/L, no R/W/R GI: Abdomen soft, nondistended, suprapubic bulge. BSx4 SKIN/MSK/EXT: No wounds/rashes/edema/amputations, no pain on palpation. Pedal pulses present B/L NEURO: AAOx3, no focal neuro deficits, able to move all 4 extremities Discharge Plan Plan Patient Disposition: Xfer Skilled Nsg Fac (SNF) Patient condition on transfer: Stable Care Plan Goals: Follow up with primary care physician within 1 week of discharge Follow up with Nephrology within 2 weeks of discharge Patient is encouraged to drink 2L of fluids per day Lasix and metolazone, on hold until seen by nephrology Should any symptoms recur or worsen patient is instructed to return to the ED. Prescriptions/Referrals Prescriptions/Med Rec: Continued amlodipine 10 mg tablet 10 mg PO DAILY Patient Comments: TAKE 1 TABLET BY MOUTH DAILY lisinopril 40 mg tablet 40 mg PO DAILY Patient Comments: TAKE 1 TABLET BY MOUTH EVERY MORNING ondansetron 4 mg tablet,disintegrating 4 mg PO [id number] PRN (Reason: nausea and vomiting) carvedilol 6.25 mg tablet 6.25 mg PO BID Patient Comments: TAKE 1 TABLET BY MOUTH TWICE DAILY Eliquis 2.5 mg tablet 2.5 mg PO BID Patient Comments: TAKE 1 TABLET BY MOUTH TWICE DAILY hydralazine 25 mg tablet 25 mg PO TID Patient Comments: TAKE 1 TABLET BY MOUTH THREE TIMES DAILY Held metolazone 2.5 mg tablet 2.5 mg PO QDAY Hold Instructions: Resume on 11/11/24. Hold until seen by Nephrology Patient Comments: TAKE 1 TABLET BY MOUTH EVERY DAY AT 2 PM FOR LEG SWELLING furosemide 40 mg tablet 40 mg PO QDAY Hold Instructions: Resume on 11/11/24. till evaluated by nephrology Referrals: Kurt Woody MD [Primary Care Provider] - Patient/Caregiver Discharge Instructions Print Language: Macedonian Stand Alone Forms: [facility] Award Info., Patient Portal Info Letter Discharge Order Discharge Orders: Discharge (Routine); Ordered 10/29/24 Ordered By: Tadeo Marti Quality Discharge Quality Measures VTE prophylaxis
== END 2024-10-29 23:30 | disposition skilled nursing facility (03) | DRG 690 ==
LOC: SERX 20:33 → SERHOLD 21:20 → S3NX 22:59
PROVIDERS: Registered Nurse General Practice; Student in an Organized Health Care Education/Training Program; Admitting Provider Internal Medicine; Emergency Provider Emergency Medicine; PCP Family Medicine; Visit Provider Internal Medicine
DX: N39.0 Urinary tract infection, site not specified (principal); I50.32 Chronic diastolic (congestive) heart failure; N17.9 Acute kidney failure, unspecified; I13.0 Hypertensive heart and chronic kidney disease with heart failure and stage 1 through stage 4 chronic kidney disease, or unspecified chronic kidney disease; N18.4 Chronic kidney disease, stage 4 (severe); I48.91 Unspecified atrial fibrillation; G20.A1 Parkinson's disease without dyskinesia, without mention of fluctuations; G51.0 Bell's palsy; R25.3 Fasciculation; E86.0 Dehydration; D63.1 Anemia in chronic kidney disease; W19.XXXA Unspecified fall, initial encounter; Y92.009 Unspecified place in unspecified non-institutional (private) residence as the place of occurrence of the external cause; Z60.2 Problems related to living alone; Z74.09 Other reduced mobility; Z66 Do not resuscitate; Z79.899 Other long term (current) drug therapy; Z90.49 Acquired absence of other specified parts of digestive tract
CPT/HCPCS: 36415; 70450; 71045; 72125; 80053; 80307; 81001; 83615; 83735; 83880; 84100; 84484; 85025; 85610; 85730; 87077; 87086; 87186; 93005; 93225; 93971; 94640; 96365; 96372; 97162; 99285; A9270; J0696; J1644; J2405; J2470; J3475; J7030

== ENCOUNTER 2024-11-24 10:22 | Inpatient (IN) | payer MEDICARE, MEDICAID, SELFPAY ==
[2024-11-24] VITALS (10 sets, daily range): BP systolic 93–113; BP diastolic 47–65; PULSE 74–90; RESP 14–20; TEMP 36–36.6; O2SAT 95–100
--- NOTE | 2024-11-24 10:41 | PD.EDRME ---
Rapid Medical Screening Exam RME Arrival date/time: 11/24/24 10:22 84-year-old female with a history of hypertension was sent to the emergency room by Dr. Anne for acute renal failure as well as a mass to her buccal area. I have greeted and performed a focused initial assessment of this patient. A comprehensive ED assessment and evaluation of the patient, analysis of all test results, and completion of the medical decision making process will be conducted by additional ED providers. Chief Complaint: General Adult/Misc Complain Time Seen by Provider: 11/24/24 10:37 Vital signs: Vital Signs Temperature 97.9 F 11/24/24 10:32 Pulse Rate 85 11/24/24 10:32 Respiratory Rate 18 11/24/24 10:32 Blood Pressure 99/65 11/24/24 10:32 Pulse Oximetry (%) 95 11/24/24 10:32 Oxygen Delivery Method Room Air 11/24/24 10:32 Vital signs reviewed by provider: Yes
[2024-11-24 11:00] LABS: Lactate (Lactic Acid) 0.9 mMol/L (0.4-2.0)
[2024-11-24 11:04] LABS: Basophils % (Auto) 0 % (0-2.5); Eosinophils # (Auto) 0.1 Thou/mm3 (0.0-0.5); Eosinophils % (Auto) 1 % (0-10); Hematocrit 21.6 % (36.0-46.0); Immature Granulocytes % (Auto) 4 % (0-0); Immature Granulocytes Auto 0.28 Thou/mm3 (0.00-0.00); Lymphocytes # (Auto) 1.8 Thou/mm3 (1.0-4.8); Lymphocytes % (Auto) 25 % (10-50); Mean Corpuscular HGB Conc 34.3 g/dl (31.0-37.0); Mean Corpuscular Hemoglobin 32.5 pg (25.0-35.0); Mean Corpuscular Volume 95 fL (80-100); Monocytes # (Auto) 0.7 Thou/mm3 (0.0-0.8); Monocytes % (Auto) 9 % (0-12); Neutrophils # (Auto) 4.2 Thou/mm3 (1.8-7.7); Neutrophils % (Auto) 60 % (37-80); Nucleated Red Blood Cell # 0.17 Thou/mm3 (0.00-0.00); Nucleated Red Blood Cell % 2 /100 WBC (0); Platelet Count 266 Thou/mm3 (140-440); RDW Standard Deviation 61.8 fL (36.4-46.3); Red Blood Count 2.28 Miln/mm3 (4.00-5.20); White Blood Count 7.1 Thou/mm3 (3.6-11.0)
[2024-11-24 11:26] LABS: Hemoglobin 7.4 g/dL (12.0-16.0)
[2024-11-24 11:42] LABS: Alanine Aminotransferase 12 U/L (10-49); Albumin, Serum 3.4 gm/dL (3.4-4.8); Albumin/Globulin Ratio 1.7 (1.2-2.2); Alkaline Phosphatase 66 U/L (46-116); Anion Gap 17 (7-16); BUN/Creatinine Ratio 59 Ratio (12-20); Bilirubin,Total 0.7 mg/dL (0.3-1.2); Calcium 8.9 mg/dL (8.3-10.6); Calcium (Corrected) 9.4 mg/dL (8.5-10.1); Carbon Dioxide 20.9 mMol/L (20.0-31.0); Chloride 108 mMol/L (98-107); Creatinine (Component) 2.5 mg/dL (0.6-1.3); Glucose 97 mg/dL (74-106); Lipase 91 U/L (12-53); Osmolality,Calculated 338 (275-295); Potassium 5.6 mMol/L (3.4-5.1); Procalcitonin 0.25 ng/ml (0.0-0.49); Sodium 146 mMol/L (136-145); Total Protein 5.4 gm/dL (5.7-8.2); eGFR 19 See Note
[2024-11-24 11:55] LABS: Blood Urea Nitrogen 148 mg/dL (9-23)
--- NOTE | 2024-11-24 12:44 | PD.EDADULT ---
ED General RME/HPI General Chief complaint: General Adult/Misc Complain Stated complaint: JANEY & R) BUCCAL MASS. SENT BY DR. ANNE Time Seen by Provider: 11/24/24 10:37 Arrival date/time: 11/24/24 10:22 RME / HPI RME / HPI narrative: 84-year-old female patient with significant history of hypertension, on Eliquis, congestive heart failure, history of acute kidney injury, was sent to us by Dr. Anne for JANEY and right sided buccal mass. Patient has been having worsening swelling to the right facial swelling, more on the buccal area, for the last 3 weeks, according to the family, and patient also was noted to have on and off gum bleeding. Patient was also noted to have worsening swelling to bilateral lower extremity, and shortness of breath. Also complained of poor appetite, not hungry and not thirsty. Patient is denying any chest pain. Patient denies any fever. Denies any other complaints. Related Data Home Medications ?Medication ?Instructions ?Recorded ?Confirmed amlodipine 10 mg tablet 10 mg PO DAILY 10/20/21 10/26/24 lisinopril 40 mg tablet 40 mg PO DAILY 10/20/21 10/26/24 ondansetron 4 mg disintegrating 4 mg PO [id number] PRN nausea and 02/21/24 10/26/24 tablet vomiting apixaban 2.5 mg tablet (Eliquis) 2.5 mg PO BID 10/26/24 10/26/24 carvedilol 6.25 mg tablet 6.25 mg PO BID 10/26/24 10/26/24 furosemide 40 mg tablet 40 mg PO QDAY 10/26/24 10/26/24 Held on 10/28/24. Instructions: Resume on 11/11/24. till evaluated by nephrology hydralazine 25 mg tablet 25 mg PO TID 10/26/24 10/26/24 metolazone 2.5 mg tablet 2.5 mg PO QDAY 10/26/24 10/26/24 Held on 10/28/24. Instructions: Resume on 11/11/24. Hold until seen by Nephrology Allergies Allergy/AdvReac Type Severity Reaction Status Date / Time No Known Allergies Allergy Verified 11/24/24 10:25 Review of Systems Review of Systems Narrative Review of Systems: Review of system reviewed and within normal limits except mentioned in HPI ED Exam Narrative Physical exam: VITAL SIGNS: Reviewed. GENERAL APPEARANCE: Alert and interactive, follows commands, no acute distress, HEAD AND FACE: Non-traumatic. ENT: PERRL, pale conjunctiva, eyelid no trauma, Mucous membrane moist. 3 x 4 cm swelling to the right mandibular area nonfluctuant nontender, multiple dental cavity, with dried blood, tongue is very dry NECK: Supple, nontender, no nuchal rigidity. CHEST: No tenderness, no crepitus, no paradoxical movement, no retractions. LUNGS: Clear, well ventilated, symmetric, no rales, no wheezing, no ronchi, no stridor, good breath sounds bilaterally. HEART: Regular rate, regular rhythm, no murmur, no gallops. ABDOMEN: Soft, positive bowel sounds, nondistended, no guarding, nontender, no rebound, no masses, RECTAL: Deferred. GENITAL: Deferred. NEUROLOGICAL: Gross motor function intact sensory function intact, Appropriate for age. MUSCULOSKELETAL: low back nontender, full range of motion. Bilateral +2 edema lower extremity EXTREMITIES: Nontender, full range of motion. SKIN: Color pale, dry, no rash, no lacerations, no abrasions, no contusions. LYMPHATICS: Deferred. Course Quality Measures none Orders Category Date Time Status COVID-19 Screening Questionnaire NOW Care 11/24/24 14:26 Active Decision to Admit X1 Care 11/24/24 14:26 Active Silva [Urinary Catheter, Remove] ONCE Care 11/24/24 12:44 Active Silva [Urinary Catheter] QS Care 11/24/24 12:44 Active Insert IV NOW Care 11/24/24 13:47 Active Transfuse,blood/blood products ONCE Care 11/24/24 12:46 Active Consult to Nephrology Stat Cons 11/24/24 14:02 Ordered Consult to Otolaryngology(Head and Neck) Stat Cons 11/24/24 14:[address] facial bones wo con Stat Exams 11/24/24 12:45 Completed XR chest 1V Stat Exams 11/24/24 12:46 Completed BNP [B-Type Natriuretic Peptide] Stat Lab 11/24/24 10:55 Completed Blood Culture (Lab) Stat Lab 11/24/24 10:50 Received CBC Stat Lab 11/24/24 10:55 Completed CMP [Comprehensive Metabolic Panel] Stat Lab 11/24/24 10:55 Completed Lactate (Lactic Acid) Stat Lab 11/24/24 10:55 Completed Lipase Stat Lab 11/24/24 10:55 Completed PT [Prothrombin Time with INR] Stat Lab 11/24/24 10:55 Completed PTT [Partial Thromboplastin Time] Stat Lab 11/24/24 10:55 Completed Procalcitonin Stat Lab 11/24/24 10:55 Completed Type and Screen Stat Lab 11/24/24 13:35 Results UA [Urinalysis] Stat Lab 11/24/24 13:50 Completed Urine Culture Stat Lab 11/24/24 13:50 Received prbc [Red Blood Cells] Stat Lab 11/24/24 13:35 Results Levofloxacin/D5w 750Mg Ivpb [Levaquin Ivpb] Med 11/24/24 13:29 Discontinued 750 mg in 150 ml IV X1 Sod Polystyrene Sulfon Susp [Kayexalate Susp] Med 11/24/24 12:44 Discontinued 15 gm PO X1 ONE Sodium Chloride 0.9% 500 ml [Ns] 500 ml Med 11/24/24 12:44 Discontinued IV 250 mls/hr Vital Signs Vital signs: Vital Signs Temperature 97.9 F 11/24/24 10:32 Pulse Rate 85 11/24/24 10:32 Respiratory Rate 18 11/24/24 10:32 Blood Pressure 99/65 11/24/24 10:32 Pulse Oximetry (%) 95 11/24/24 10:32 Oxygen Delivery Method Room Air 11/24/24 10:32 Discharge Plan Plan Patient Disposition: Admit Acute Care w/in Hospital Discharge Disposition comment: stable Problem List Clinical Impression: JANEY (acute kidney injury), UTI (urinary tract infection), Pneumonia, Mandibular mass MDM Narrative [facility] hospital course: 84-year-old female patient with significant history of hypertension, on Eliquis, congestive heart failure, history of acute kidney injury, was sent to us by Dr. Anne for JANEY and right sided buccal mass. Patient has been having worsening swelling to the right facial swelling, more on the buccal area, for the last 3 weeks, according to the family, and patient also was noted to have on and off gum bleeding. Patient was also noted to have worsening swelling to bilateral lower extremity, and shortness of breath. Also complained of poor appetite, not hungry and not thirsty. Patient is denying any chest pain. Patient denies any fever. Denies any other complaints. Patient's workup is significant for hemoglobin of 7. 4, hematocrit of 21.6. Patient received 1 unit of packed RBC. IV Creatinine was noted to be 2.5 BUN is also elevated. Patient received 500 cc of IV NS, and Silva catheter was inserted. EKG as entertained by me showed A-fib, ventricular rate of 76 bpm, and no ST segment elevation or depression. Urinalysis positive for UTI, patient reassured pneumonia. Started on Levaquin x 1. Spoke with resident, who accepted the comanagement. Thank you Spoke with hospitalist, who admitted the patient Medication Administration(s) Medication Administration History Docusate Sodium (Docusate Sod 100 Mg Capsule) 100 mg PO QDAY PRN; Protocol PRN Reason: CONSTIPATION Stop: 12/24/24 15:46 Piperacillin/Tazobactam/Dextrose (Zosyn) 3.375 gm in 50 mls @ 12.5 mls/hr IV Q12HR PRINCESS Stop: 12/01/24 20:59 Sodium Chloride (Ns) 1,000 mls @ 100 mls/hr IV .Q10H ONE Stop: 11/25/24 02:28 Last Admin: 11/24/24 18:04 Dose: 100 mls/hr Documented By: YOUSUF Ondansetron HCl (Ondansetron Inj 2 Mg/Ml Inj 2 Ml) 4 mg IVP Q6H PRN; Protocol PRN Reason: NAUSEA OR VOMITING Stop: 12/24/24 15:46 Pantoprazole Sodium (Pantoprazole 40 Mg Tablet) 40 mg PO QDAY PRINCESS Stop: 12/25/24 08:59 Pharmacy Consult (Pharmacy Renal Dose Adjustment 1 Ea) 1 each XX PRN PRN PRN Reason: CONSULT Stop: 12/24/24 17:02 Discontinued Medications Heparin Sodium (Porcine) (Heparin Sod Inj 5000 Unit/Ml Vial) 5,000 unit SC Q8HR PRINCESS Stop: 12/08/24 21:59 Sodium Chloride (Ns) 500 mls @ 250 mls/hr IV .Q2H ONE Stop: 11/24/24 14:43 Last Admin: 11/24/24 14:58 Dose: 250 mls/hr Documented By: YOUSUF Comments: Scanner not working Levofloxacin/Dextrose (Levaquin Ivpb) 750 mg in 150 mls @ 100 mls/hr IV X1 ONE Stop: 11/24/24 14:58 Last Admin: 11/24/24 14:59 Dose: 100 mls/hr Documented By: YOUSUF Comments: Scanner not working Sodium Chloride (Ns) 1,000 mls @ 80 mls/hr IV .[id number] ONE Stop: 11/25/24 04:58 Piperacillin/Tazobactam/Dextrose (Zosyn) 50 mls @ 100 mls/hr IV Q8HR PRINCESS Stop: 12/01/24 16:29 Albumin Human (Albuminar-25 Ivpb) 12.5 gm in 50 mls @ 50 mls/hr IV X1 ONE Stop: 11/24/24 17:50 Last Admin: 11/24/24 18:04 Dose: 50 mls/hr Documented By: YOUSUF Levalbuterol HCl (Levalbuterol Rt 0.63 Mg/3 Ml Nebu) 0.63 mg INH X1 ONE Stop: 11/24/24 16:45 Last Admin: 11/24/24 16:58 Dose: 0.63 mg Documented By: DAVIS Sodium Polystyrene Sulfonate (Sod Polystyrene Sulfon Susp 15 Gm/60 Ml Btl) 15 gm PO X1 ONE Stop: 11/24/24 12:45 Last Admin: 11/24/24 14:59 Dose: 15 gm Documented By: YOUSUF Comments: Scanner not working Diagnosis Most likely dx, and/or detailed dx discussion: JANEY, pneumonia, mandibular mass, UTI, Dispositon Disposition: Admit
--- NOTE | 2024-11-24 12:45 | XR_ITS ---
Examination: CT maxillofacial, without intravenous contrast. 2-D sagittal reconstructions. 3-D reconstructions. Date and time of exam:November 24, 2024 1300 hours INDICATIONS: Right mandibular and cheek swelling beginning 3 weeks ago CTDI: vol (mGy):18.5 DLP: (mGycm):335 Technique: Multiple axial images of maxillofacial region, 3.0 mm slice thickness. 2-D sagittal and coronal reconstructions. 3-D reconstructions. Low dose protocols were performed. One or more of the following dose reduction techniques were used; automated exposure control, adjustment of the mA and/or KV according to patient size, use of iterative reconstruction technique. 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
--- NOTE | 2024-11-24 12:46 | XR_ITS ---
Examination: AP chest single view Technique one AP portable upright chest single view Date and time: 07/27/2024 1252 hours Comparison October 25, 2024 INDICATIONS: Shortness of breath today. FINDINGS: Left base pneumonia with possible left pleural fluid No pulmonary edema Stable calcified nodules right upper lobe Prominent osteopenia IMPRESSION: Significant left base pneumonia
[2024-11-24 13:30] LABS: B-Type Natriuretic Peptide 460 pg/mL (0-100)
[2024-11-24 13:41] LABS: INR 1.3 (0.9-1.3); Partial Thromboplastin Time 33.9 Seconds (22.0-36.0); Prothrombin Time 14.4 Seconds (9.0-12.2)
[2024-11-24 14:06] LABS: Collection Type, Urine Clean Catch
[2024-11-24 14:17] LABS: Bacteria,Urine 1+; Bilirubin,Urine 1+ (Negative); Blood,Urine 2+ (Negative); Budding Yeast,Urine Present; Color,Urine Yellow (Lt Yel-Yel); Glucose, Urine Negative (Negative); Hyaline Casts,Urine 1 /hpf (0-1); Ketones,Urine Negative (Negative); Leukocyte Esterase,Urine Positive (Negative); Nitrite,Urine Negative (Negative); PH,Urine 5.5 (5.0-7.0); Protein,Urine 2+ (Neg - Trace); RBC,Urine 182 /hpf (0-3); Specific Gravity,Urine 1.022 (1.001-1.035); Squamous Epithelial Cell,Urine 8 /hpf (0-5); WBC,Urine 59 /hpf (0-5)
[2024-11-24] MEDS: SODIUM CHLORIDE 0.9% 500 ML 500 ML 250 ML IV (14:58)
[2024-11-24] MEDS: SOD POLYSTYRENE SULFON SUSP 15 GM/60 ML BTL PO (14:59)
[2024-11-24] MEDS: LEVOFLOXACIN/D5W 750MG IVPB 750 MG/150 ML BAG 100 MG IV (14:59)
[2024-11-24 15:04] LABS: Clarity,Urine Hazy (Clear/Hazy)
--- NOTE | 2024-11-24 15:50 | ESHP_ITS ---
<Statement entered by Aston Al MD - 11/25/24 07:59> 84-year-old female with significant medical history for HFpEF, Parkinson's, A- fib (on Eliquis) and recent hospital admission for JANEY presented to the hospital from SNF with complaints of lethargy for 2 days and swelling of right cheek for the last 3 weeks. Vitals were unremarkable, CBC was significant for Hgb 7.4, NA 146, K5.6, anion gap 17, creatinine 2.5, BNP 460 and UA positive for UTI. Chest x-ray showed bilateral patchy infiltrates and CT of face indicated bone destruction involving the right mandible. Patient was admitted for further management of acute encephalopathy secondary to JANEY, uremia and UTI. Padder Cushion Dr. Anne consulted, Eliquis was held, PRBC ordered, patient started on Zosyn and ENT consulted. I discussed with and supervised the international coordinator physician involved in the care of this patient. Patient assessment and plan was discussed with entire medicine team, including my attending. I agree with the assessment and plan as documented by international coordinator doctor. Patient care was discussed with my attending physician Dr. Gilberto Al, PGY-2 Documentation for date of: 11/24/24 HPI History of Present Illness Chief complaint: Lethargy History of present illness: Patient is extremely lethargic and could not give history. Most of the history is taken from son at the bedside A 84-year-old female with past medical history of HFpEF 50-55%, hypertension, Torres's palsy, Parkinson's, atrial fibrillation on Eliquis, recent hospitalization for dehydration and acute kidney injury presented to the hospital with chief complaints of lethargy since 2 days and swelling in the right cheek since 3 weeks. Per patient's son, patient was discharged to nursing facility after last admission and she is bedbound since that time. Patient also noted to have bilateral lower extremity swelling since then and is kept on fluid restriction and diuretics as per booster plant operator advice. Patient was last seen at her baseline yesterday per her son and today nursing facility brought her to the ED as patient is more altered and informed the son. Denies fever, shortness of breath, abdominal distention. Patient was noted to have a mass on right mandible on head CT. Patient's family was offered to transfer out to get further management but son and daughter at the bedside wants to get biopsy and find out the cause. Explained about the chances of ending up on dialysis for the patient and patient's family agreed upon it. ED course: - Vitals are stable at the time of admission - Labs at the time of admission showed hemoglobin 7.4, platelets 266, sodium 146, potassium 5.6, chloride 108, BUN 148, anion gap 17, creatinine 2.5, BNP 460, albumin 3.4, procalcitonin 0.25 - Urinalysis showed 2+ proteinuria, 2+ blood, 1+ bilirubin, 182 RBC, 59 WBC, 1+ bacteria - Chest x-ray showed bilateral patchy infiltrates - Face CT showed extensive bone destruction involving the right mandible with associated soft tissue involving inside and outside of the mandible PMH: HFpEF, hypertension, Torres's palsy, Parkinson's disease, atrial fibrillation on [address] Dr. PSH: Cholecystectomy Social: No smoking, alcohol, other illicit drug abuse Review of Systems Review of Systems ROS Unobtainable: unobtainable due to mental status and unobtainable due to medical condition Exam Vital Signs Temp Pulse Resp BP Pulse Ox O2 Del Method 97.9 F 79 16 96/47 L 99 Room Air 11/24/24 14:23 11/24/24 14:23 11/24/24 14:23 11/24/24 14:23 11/24/24 14:23 11/24/24 14:23 Narrative Exam General: Lethargic. Responding to verbal commands. HEENT: Normocephalic, atraumatic, mucous membranes moist. Noted swelling on right cheek, hard consistency. Noted bleeding from the teeth Heart: Regular rate and rhythm, no murmurs. Lungs: Clear to auscultation with no wheezing or crackles. Abdomen: Soft, nondistended, nontender, positive bowel sounds. ?No guarding or rebound tenderness. Neurologic: Able to move all 4 extremities Extremities: 4+ pitting pedal edema extending to above the knees Skin: Noted ecchymotic patches on the front of the chest. Results: Labs 11/25/24 04:36 11/25/24 04:36 Labs: Short CBC 11/24/24 Range/Units 10:55 WBC 7.1 (3.6-11.0) Thou/mm3 Hgb 7.4 L (12.0-16.0) g/dL Hct 21.6 L* (36.0-46.0) % Plt Count 266 D (140-440) Thou/mm3 BMP 11/24/24 10:55 Sodium 146 H Potassium 5.6 H Chloride 108 H Carbon Dioxide 20.9 BUN 148 H* Creatinine 2.5 H Glucose 97 Calcium 8.9 Liver Function 11/24/24 Range/Units 10:55 Total Bilirubin 0.7 (0.3-1.2) mg/dL ALT 12 (10-49) U/L Alkaline Phosphatase 66 (46-116) U/L Albumin 3.4 (3.4-4.8) gm/dL Urine 11/24/24 Range/Units 13:50 Urine Color Yellow (Lt Yel-Yel) Urine Clarity Hazy (Clear/Hazy) Urine pH 5.5 (5.0-7.0) Ur Specific [place] 1.022 (1.001-1.035) Urine Protein 2+ A (Neg - Trace) Urine Glucose (UA) Negative (Negative) Quality Measures Quality Measures none Advance care planning discussed with:: child Medications Home Medications and Allergies Home Medications ?Medication ?Instructions ?Recorded ?Confirmed ?Type amlodipine 10 mg tablet 10 mg PO DAILY 10/20/2111/14 History lisinopril 40 mg tablet 40 mg PO DAILY 10/20/2111/14 History ondansetron 4 mg disintegrating 4 mg PO [id number] PRN na usea and 02/21/24 11/25/24 History tablet vomiting apixaban 2.5 mg tablet (Eliquis) 2.5 mg PO BID 5 11/25/24 History carvedilol 6.25 mg tablet 6.25 mg PO BID 10/26/2411/14 History furosemide 40 mg tablet 40 mg PO QDAY 10/26/2410/26 History Held on 10/28/24. Instructions: Resume on 11/11/24. till evaluated by nephrology hydralazine 25 mg tablet 25 mg PO TID 10/26/24 History metolazone 2.5 mg tablet 2.5 mg PO QDAY 10/26/2410/14 History Held on 10/28/24. Instructions: Resume on 11/11/24. Hold until seen by Nephrology acetaminophen 325 mg capsule 650 mg PO Q6H PRN pain 11/25/24 History aspirin 81 mg capsule 81 mg PO QDAY 11/25/2411/25 History bisacodyl 10 mg rectal suppository 10 mg SD QDAY PRN c onstipation 11/25/24 11/25/24 History (Dulcolax (bisacodyl)) bumetanide 0.5 mg tablet 0.5 mg PO QDAY 11/25/2411/14 History ferrous sulfate 325 mg (65 mg 325 mg PO BID 11/25/24 0 11/25/24 History iron) tablet (Feosol) levothyroxine 25 mcg tablet 25 mcg PO QDAY 11/25/24 History lisinopril 20 mg tablet 20 mg PO QDAY 11/25/2411/25 History magnesium hydroxide 400 mg/5 mL 30 ml PO Q72H PRN cons tipation 11/25/24 11/25/24 History oral suspension (Milk of Magnesia) sertraline 50 mg tablet 50 mg PO QDAY 11/25/2411/25 History sodium phosphates 19 gram-7 118 ml SD Q72H PRN constip ation 11/25/24 11/25/24 History gram/118 mL enema (Fleet Enema) Allergies Allergy/AdvReac Type Severity Reaction Status Date / Time No Known Allergies Allergy Verified 11/24/24 10:25 Visit Medications Discontinued Medications Sodium Chloride (Ns) 500 mls @ 250 mls/hr IV .Q2H ONE Stop: 11/24/24 14:43 Last Admin: 11/24/24 14:58 Dose: 250 mls/hr Levofloxacin/Dextrose (Levaquin Ivpb) 750 mg in 150 mls @ 100 mls/hr IV X1 ONE Stop: 11/24/24 14:58 Last Admin: 11/24/24 14:59 Dose: 100 mls/hr Sodium Polystyrene Sulfonate (Sod Polystyrene Sulfon Susp 15 Gm/60 Ml Btl) 15 gm PO X1 ONE Stop: 11/24/24 12:45 Last Admin: 11/24/24 14:59 Dose: 15 gm Assessment & Plan Plan A 84-year-old female with past medical history of HFpEF 50-55%, hypertension, Torres's palsy, Parkinson's, atrial fibrillation on Eliquis, recent hospitalization for dehydration and acute kidney injury presented to the hospital with chief complaints of lethargy since 2 days and swelling in the right cheek since 3 weeks and admitted in the hospital for JANEY, likely prerenal in the setting of poor oral intake and diuretics # Acute metabolic encephalopathy # Uremia # Acute kidney injury, likely prerenal - Brought to the hospital in view of lethargy since Friday. - Per family at the bedside, patient is on fluid restriction and is on diuretics - Patient had similar complaints 3 weeks ago for which she was admitted for JANEY and received IV fluids - Vitals at the time of admission are stable except for mildly low blood pressure 99/60 mmHg - On physical examination, patient noted to have peripheral fluid edema and appears intravascularly depleted, dry mucous membranes - Labs are significant for Hb 7.4, sodium 146, potassium 5.6, chloride 108, anion gap 17, BUN 148, creatinine 2.5 Plan - Patient was given 250 mL bolus in the ED - Patient was started on IV fluids, NS at 100 mL/h - Urine electrolytes are ordered - Strict I&O's ordered, placed Silva catheter - Ultrasound of kidneys ordered - Consulted Dr. Anne, will appreciate her recommendations - Will avoid nephrotoxic medication and renally dose medications # Right mandibular mass -infection versus malignancy - Patient was noted to have a mass that is slowly growing on right cheek since 3 weeks - Denies fever, redness on the right cheek - On physical examination, noted mild tenderness and hard on palpation - Face CT showed extensive bone destruction involving the right mandible with associated soft tissue involving inside and outside of the mandible Plan - Started on Zosyn 3.375 g every 12 hourly - Will plan for biopsy if the mass does not respond to antibiotics # Anemia, likely 2/2 blood loss - Hemoglobin in 10/2024 is 8.9 - At the time of presentation, hemoglobin is 7.4 - Patient is on Eliquis 2.5 Mg p.o. twice daily for atrial fibrillation - Noted bleeding manifestations in the oral cavity - Held anticoagulation for now Plan -1 PRBC transfusion is ordered -Stool occult blood is ordered -will look for bleeding manifestations and transfuse as needed # Hyponatremia # Hyperkalemia - At the time of admission, sodium is 146, potassium is 5.6 - Patient received albuterol inhalation and Kayexalate in the ED Plan - Repeat electrolytes is ordered, will follow-up with results - Will replete/treat electrolytes as needed # ?UTI - Patient is not able to give appropriate history - Urinalysis showed 2+ proteinuria, 2+ blood, 1+ bilirubin, 182 RBC, 59 WBC, 1+ bacteria - Patient was started on Zosyn for right mandibular mass which will cover UTI # History of HFpEF - Patient is currently on diuretics and EF is 55 to 60% in 2023 - Repeat echo was ordered - Will hold diuretics for now in view of prerenal JANEY # History of A-fib, likely paroxysmal - Patient is on Eliquis 2.5 Mg p.o. 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 Macias and senior resident Dr. Servando Rosas, PGY1 Attending Provider Attestation/Addendum I, Jazmín Macias DO, attest that I was physically present for the hoff portions of the service and evaluated the patient with the resident and I reviewed and discussed the case with the resident and agree with the resident's findings and plans of care as documented above Patient is an 84-year-old female with past medical history of cardiomyopathy, Torres's palsy, hypertension, A-fib on Eliquis who was recently admitted for dehydration and JANEY was sent to the ED by nephrology due to elevated BUN/creatinine. Patient has been very lethargic since and was noted to have worsening swelling in her right cheek in the past 3 weeks. Patient is unable to provide history as she is very confused and lethargic, A&Ox1. Patient's mouth is very dry and has some old blood. Suspect that she may have some bleeding from her gums. No reported nausea or vomiting. Patient has been taking Eliquis due to her A-fib. She is noted to have significantly edematous 4+ pitting bilateral lower extremity edema. Silva was placed in the ED and appears to be dry. Case was discussed with nephrology and recommends IV fluids at this time. Facial CT in the ED showed extensive bone destruction involving the right body of the mandible with soft tissue masses external and internal to the mandible. I reviewed previous head CT from previous admission which was difficult to see soft tissue mass. I discussed case with radiology who suspects that patient likely has a mass. ENT also reviewed CT suspect possible impacted/infected wisdom tooth. Recommends IV antibiotics. Patient is able to protect her airway. Confusion and lethargy likely secondary to uremia. I discussed with patient's son and daughter at bedside in detail regarding the CT findings regarding possible mass versus infection involving the mandible. Explained to them that if patient has an infection that requires drainage, patient would benefit from being evaluated by OMFS at an outside hospital requiring transfer. Patient is too confused to make any of her decisions at this time. Daughter and son had a private discussion and stated that they do not wish for the patient to be transferred out at this time. They wish for patient to undergo biopsy here at this hospital and continue IV antibiotics and stabilizing her acute renal failure. They verbalized that they are understanding that if right mandibular mass/swelling is secondary to infection that patient may need further transfer and if infection worsens, may lead to worsening of patient condition and possibly . They state that the patient has always verbalized that she is DNR CODE STATUS. They are also understanding if the patient's renal function does not improve, that patient may need dialysis which they are agreeable to. Case was discussed with nephrology and recommended starting patient on IV fluids. Will admit to telemetry due to acute renal failure. Will monitor I's and O's. Will start on IV zosyn for possible oral infection as well. Will f/u with nephrology recommendations.
--- NOTE | 2024-11-24 16:26 | PD.RESCONSUL ---
HPI Data of Consult Consult date: 11/24/24 Requesting Physician: Jazmín Macias DO Admitting Provider: Jazmín Macias DO Attending Provider: Jazmín Macias DO Primary Care Provider: Kurt Woody MD Consult Narrative Reason for consult: JANEY History of present illness: History is limited as patient is poor historian at this time and cannot hear very well. Cheri is a 84-year-old female with past medical history of HFpEF (EF:50-55%), hypertension, Torres's palsy, Parkinson's, CKD, Afib (on Eliquis) who comes in for an evaluation after labs had revealed the patient's kidney function was altered. Patient comes from nursing facility and was found to have elevated creatinine. Patient was recently put into the half-way about a month ago and this was because of recurrent falls and lack of support at home. While at the half-way, patient has been having poor oral intake. It is unknown if patient is having poor oral intake due to appetite or if a possible mass in her right mandibular area is affecting her. Patient says that she is not having any symptoms, however says she has not eaten in about 4 to 5 days, is unsure if its her appetite. She denies any vomiting, nausea, diarrhea, abdominal pain, chest pain or shortness of breath. Patient has been using oxygen however at the nursing facility and is unsure why. Patient's smeller is Dr. Reynolds. She was told by her heart doctor and her primary care doctor to limit her fluid intake. She takes her medicines as prescribed. Family present at bedside says that they are not allowed to receive information about her health care unless it is approved by her. The son of the patient is currently working on power of assistant prosecuting attorney for the patient at this time. No other complaints at this time. Denies a history of urinary retention. Patient was recently discharged from the hospital in October for JANEY and uremia and similar symptoms. ED course: Patient came to the ED with a temperature of 97.9, heart rate 85, respiratory 18, blood pressure of 99/65, saturating 95% on room air. Patient was worked up was found to have a sodium of 146, potassium 5.6, chloride 108, bicarb 28.9, BUN 148, creatinine 2.5, GFR 19, glucose 97, osmolarity 338, lactate 0.9, calcium 9.4, BNP 460, lipase 91, urine protein +2, urine blood +2, urine bilirubin +1, urine RBCs 182, urine WBCs 59, bacteria 1, yeast present, leukocyte esterase positive, hemoglobin 7.4, white count 7.1. Chest x-ray showed left base pneumonia, however appears to have some vascular congestion as well. Face CT was done for evaluation of right side of face which showed extensive bone destruction involving right body of the mandible with associated soft tissue masses external and internal to the mandible. Patient was given normal saline 500 mL, Kayexalate 15 g x1, and Levaquin 750 mg x 1. Medicine was consulted and patient admitted to the floors PMHx: As above Surgeries: Meds: Allergies: Family Hx: Social Hx: Born in [place], moved to [place] around ~50 years ago. Never drank, never has smoked, no history of drug use IV or oral. cc:: cc: Jazmín Macias, Review of Systems Review of Systems Narrative Review of Systems: 12 point ROS is limited at this time as patient is poor historian at this time Exam Vital Signs Temp Pulse Resp BP Pulse Ox O2 Del Method 97.9 F 79 16 96/47 L 99 Room Air 11/24/24 14:23 11/24/24 14:23 11/24/24 14:23 11/24/24 14:23 11/24/24 14:23 11/24/24 14:23 Narrative Exam General: AAOx2, appears to be bedbound, smiling, understands some Slovenian, able to respond to questions HEENT: Dry mucous membranes, poor dentition, some dried blood around mandibular area, right mandibular swelling that could be indicative of a mass, conjunctiva clear, EOMI, PERRLA, Cardiovascular: Irregularly irregular, radial pulses +2 bilaterally, S1, S2, ejection systolic murmur auscultated Pulmonary: Minimal crackles heard, no cough GI: Some possible rebound tenderness on left upper quadrant, bowel sounds present Extremities: Anasarca +3 bilaterally up to thigh Skin: Numerous areas of purpura seen in upper and lower extremities, rash that appears to be flat and erythematous inferior to sternum appears to be patch like Neuro: AAOx2, limited neurologic exam Psych: Able to slightly cooperate Results Labs 11/25/24 04:36 11/25/24 04:36 Labs: Short CBC 11/24/24 Range/Units 10:55 WBC 7.1 (3.6-11.0) Thou/mm3 Hgb 7.4 L (12.0-16.0) g/dL Hct 21.6 L* (36.0-46.0) % Plt Count 266 D (140-440) Thou/mm3 BMP 11/24/24 10:55 Sodium 146 H Potassium 5.6 H Chloride 108 H Carbon Dioxide 20.9 BUN 148 H* Creatinine 2.5 H Glucose 97 Calcium 8.9 Liver Function 11/24/24 Range/Units 10:55 Total Bilirubin 0.7 (0.3-1.2) mg/dL ALT 12 (10-49) U/L Alkaline Phosphatase 66 (46-116) U/L Albumin 3.4 (3.4-4.8) gm/dL Urine 11/24/24 Range/Units 13:50 Urine Color Yellow (Lt Yel-Yel) Urine Clarity Hazy (Clear/Hazy) Urine pH 5.5 (5.0-7.0) Ur Specific [place] 1.022 (1.001-1.035) Urine Protein 2+ A (Neg - Trace) Urine Glucose (UA) Negative (Negative) Quality Measures Quality Measures VTE prophylaxis Advance care planning discussed with:: patient Medications Home Medications and Allergies Home Medications ?Medication ?Instructions ?Recorded ?Confirmed ?Type amlodipine 10 mg tablet 10 mg PO DAILY 10/20/21 11/25/24 History lisinopril 40 mg tablet 40 mg PO DAILY 10/20/21 11/25/24 History ondansetron 4 mg disintegrating 4 mg PO [id number] PRN nausea and 02/21/24 11/25/24 History tablet vomiting apixaban 2.5 mg tablet (Eliquis) 2.5 mg PO BID 10/26/24 11/25/24 History carvedilol 6.25 mg tablet 6.25 mg PO BID 10/26/24 11/25/24 History furosemide 40 mg tablet 40 mg PO QDAY 10/26/24 10/26/24 History Held on 10/28/24. Instructions: Resume on 11/11/24. till evaluated by nephrology hydralazine 25 mg tablet 25 mg PO TID 10/26/24 11/25/24 History metolazone 2.5 mg tablet 2.5 mg PO QDAY 10/26/24 10/26/24 History Held on 10/28/24. Instructions: Resume on 11/11/24. Hold until seen by Nephrology acetaminophen 325 mg capsule 650 mg PO Q6H PRN pain 11/25/24 11/25/24 History aspirin 81 mg capsule 81 mg PO QDAY 11/25/24 11/25/24 History bisacodyl 10 mg rectal suppository 10 mg VT QDAY PRN constipation 11/25/24 11/25/24 History (Dulcolax (bisacodyl)) bumetanide 0.5 mg tablet 0.5 mg PO QDAY 11/25/24 11/25/24 History ferrous sulfate 325 mg (65 mg 325 mg PO BID 11/25/24 11/25/24 History iron) tablet (Feosol) levothyroxine 25 mcg tablet 25 mcg PO QDAY 11/25/24 11/25/24 History lisinopril 20 mg tablet 20 mg PO QDAY 11/25/24 11/25/24 History magnesium hydroxide 400 mg/5 mL 30 ml PO Q72H PRN constipation 11/25/24 11/25/24 History oral suspension (Milk of Magnesia) sertraline 50 mg tablet 50 mg PO QDAY 11/25/24 11/25/24 History sodium phosphates 19 gram-7 118 ml VT Q72H PRN constipation 11/25/24 11/25/24 History gram/118 mL enema (Fleet Enema) Allergies Allergy/AdvReac Type Severity Reaction Status Date / Time No Known Allergies Allergy Verified 11/24/24 10:25 Visit Medications Docusate Sodium (Docusate Sod 100 Mg Capsule) 100 mg PO QDAY PRN; Protocol PRN Reason: CONSTIPATION Stop: 12/24/24 15:46 Heparin Sodium (Porcine) (Heparin Sod Inj 5000 Unit/Ml Vial) 5,000 unit SC Q8HR PRINCESS Stop: 12/08/24 21:59 Ondansetron HCl (Ondansetron Inj 2 Mg/Ml Inj 2 Ml) 4 mg IVP Q6H PRN; Protocol PRN Reason: NAUSEA OR VOMITING Stop: 12/24/24 15:46 Pantoprazole Sodium (Pantoprazole 40 Mg Tablet) 40 mg PO QDAY PRINCESS Stop: 12/25/24 08:59 Discontinued Medications Sodium Chloride (Ns) 500 mls @ 250 mls/hr IV .Q2H ONE Stop: 11/24/24 14:43 Last Admin: 11/24/24 14:58 Dose: 250 mls/hr Levofloxacin/Dextrose (Levaquin Ivpb) 750 mg in 150 mls @ 100 mls/hr IV X1 ONE Stop: 11/24/24 14:58 Last Admin: 11/24/24 14:59 Dose: 100 mls/hr Sodium Polystyrene Sulfonate (Sod Polystyrene Sulfon Susp 15 Gm/60 Ml Btl) 15 gm PO X1 ONE Stop: 11/24/24 12:45 Last Admin: 11/24/24 14:59 Dose: 15 gm Assessment & Plan Plan Assessment Cheri is a 84-year-old female with past medical history of HFpEF (EF:50-55%), hypertension, Torres's palsy, Parkinson's, CKD, Afib (on Eliquis) who is currently admitted for JANEY and uremia. #Acute kidney injury on CKD stage IIIb #Anasarca #Hyperkalemia #Uremia #Prerenal azotemia DDx: Prerenal versus ATN versus obstructive Hypovolemia is high on differential at this point, BUN/creatinine ratio ~60 Patient endorses poor oral intake Patient appears to be intravascularly volume depleted, this could have been due to diuresis in combination with oral intake, although patient appears to have anasarca Patient could be having platelet dysfunction with uremia as patient has numerous areas of purpura, however patient is taking Eliquis High suspicion for JANEY causing uremia, however will rule out other factors including toxic ingestion, acidosis and other electrolyte abnormalities and infection Unsure if pt has had stones before Pt has vivas now Recommend to hold diuresis, and order urine urea Given Kayexalate for hyperkalemia, will also give Xopenex x1 Plan: ? 1L NS 80 cc/hr ? Vivas ? Strict DORIS's ? Avoid nephrotoxic agents ? Renally dose medicines ? Trend CMP and lytes ? Urine urea, creatinine and lytes ? Renal US #UTI Patient may be colonized at this point, however shows WBCs, shows bacteria shows leukocyte esterase Previous cultures are Proteus and Klebsiella that do appear to be mainly pansensitive Plan: ? Recommend to start IV antibiotics ? Follow-up blood and urine cultures #Hematuria Unsure if patient has nephritic or IgA nephropathy or bladder issue Patient could also have rhabdo as well as patient has RBCs +2 blood and 183 RBCs Blood seen in previous Urinalyses Plan: ? Creatine kinase ? Consider further imaging and urology consult #Facial mass, R side #Hypertension #Hyperlipidemia #A-fib #Torres's palsy #HFpEF Above managed by primary hospitalist team Patient seen and care discussed with my attending physician, Dr. Omid [place], PGY-1 Attending Provider Attestation/Addendum Patient seen and examined with resident physician Dr. Gutierrez. Note reviewed, agree with findings and recommendations. Patient presented to my office with weakness, not feeling well in the right jaw lump. Workup showed that she is in the acute kidney injury. Admitted for further evaluation. Cannot give IV fluids as patient clinically looks rather fluid overloaded. Gave 250 cc fluids. If no improvement-will plan for dialysis in AM. Thank you Dr. Macias for allowing me to participate in the care of Ms. Bauer
[2024-11-24] MEDS: LEVALBUTEROL RT 0.63 MG/3 ML NEBU INH (16:58)
--- NOTE | 2024-11-24 16:58 | XR_ITS ---
Examination: Retroperitoneal ultrasound, complete Technique: Multiple high resolution grayscale images of the retroperitoneum obtained, including kidneys and bladder. Exam date and time:November 24, 2024 1900 hours INDICATIONS: Acute renal insufficiency on laboratory examination performed 1 month ago FINDINGS: Right kidney 11.1 cm renal cortex 1.4 cm Multiple cysts, the largest in the lower pole right kidney 3 cm Left kidney 9.2 cm medial cortical 0.4 cm Mild bilateral renal parenchymal scar formation Bladder contracted around a Silva catheter IMPRESSION: Small left kidney Bilateral renal parenchymal scar formation mild Bilateral renal cortical thinning No hydronephrosis
--- NOTE | 2024-11-24 17:00 | ECHO_ITS ---
Transthoracic Echo Report Ht (in): Wt (lb): 159 Exam Location: Echo Lab Status: Inpatient Dining Car Conductor: Luan Hankins Indications: Procedure Performed: BP: 105 / 55 HR: 79 Technical Quality: Technically difficult study MEASUREMENTS (Male / Female) Normal Values 2D ECHO LV Diastolic Diameter PLAX 4.2 cm 4.2 - 5.9 / 3.9 - 5.3 cm LV Systolic Diameter PLAX 2.6 cm IVS Diastolic Thickness 1.1 cm 0.6 - 1.0 / 0.6 - 0.9 cm LVPW Diastolic Thickness 1.1 cm 0.6 - 1.0 / 0.6 - 0.9 cm LV Relative Wall Thickness 0.5 LVOT Diameter 1.8 cm Aortic Root Diameter 2.6 cm LV Ejection Fraction MOD BP 54.5 % >= 55 % LV Ejection Fraction MOD 4C 65.4 % LV Ejection Fraction 4C AL 66.2 % LV Ejection Fraction MOD 2C 32.7 % LV Ejection Fraction 2C AL 34.8 % Ascending Aorta Diameter 3.0 cm M-MODE Aortic Root Diameter MM 2.8 cm LA Systolic Diameter MM 3.3 cm LA Ao Ratio MM 1.2 AV Cusp Separation MM 1.8 cm DOPPLER AV Peak Velocity 121.0 cm/s AV Peak Gradient 5.9 mmHg AV Mean Gradient 3.0 mmHg AV Velocity Time Integral 24.6 cm LVOT Peak Velocity 115.0 cm/s LVOT Peak Gradient 5.3 mmHg LVOT Velocity Time Integral 26.4 cm AV Area Cont Eq vti 2.7 cm? AV Area Cont Eq pk 2.4 cm? MV Area PHT 4.6 cm? MR Peak Velocity 229.0 cm/s MR Peak Gradient 21.0 mmHg Mitral E Point Velocity 75.7 cm/s Mitral A Point Velocity 30.1 cm/s Mitral E to A Ratio 2.5 LV E' Lateral Velocity 9.3 cm/s Mitral E to LV E' Lateral Ratio 8.2 LV E' Septal Velocity 5.8 cm/s Mitral E to LV E' Septal Ratio 13.1 TR Peak Velocity 300.5 cm/s TR Peak Gradient 36.1 mmHg PV Peak Velocity 137.0 cm/s PV Peak Gradient 7.5 mmHg FINDINGS Left Ventricle Normal left ventricular size, wall thickness, systolic function with no obvious regional wall motion abnormalities. Normal left ventricular diastolic filling pattern for age. The ejection fraction is visually estimated at 55-60 %. Right Ventricle The right ventricular systolic function is normal. The estimated right ventricular systolic pressure, 37 mmHg. RAP 5. Left Atrium The left atrium is normal by two-dimensional, color flow and Doppler imaging with no structural abnormalities, no thrombus formation present. Right Atrium Right atrium is not well visualized. Atrial Septum The interatrial septum appears normal with no evidence of a shunt. Aorta The aorta is normal by two-dimensional, color flow and Doppler interrogation. Mitral Valve The mitral valve is normal by two-dimensional, color flow and Doppler interrogation. Mild mitral regurgitation. Aortic Valve The aortic valve is trileaflet and normal by two-dimensional, color flow and Doppler interrogation. There is no significant aortic valve regurgitation. Tricuspid Valve The tricuspid valve is normal by two-dimensional, color flow and Doppler interrogation. There is moderate tricuspid regurgitation. Pulmonic Valve The pulmonic valve is not well visualized. There is no significant pulmonic valve regurgitation. Vessels The pulmonary artery appears normal. The inferior vena cava pulmonary and hepatic veins appear normal. Pericardium The pericardium is normal by two-dimensional imaging. There is no significant pericardial effusion. CONCLUSIONS Indication: CHF and JANEY Normal left ventricular size and function. Estimated EF at 55-60 %. Grade 1 diastolic dysfunction. Mildly dilated RV with normal RV systolic function. Moderate PAH with an RVSP > 60 mm hg. Moderate TR. Mild MR, Mild MAC. Moderate AV sclerosis without stenosis. No Pericardial effusion. Ra Millan (Electronically Signed) Final Date: 24 November 2024 20:41
--- NOTE | 2024-11-24 17:23 | XR_ITS ---
Examination: Venous duplex lower extremity sonogram, bilateral. Date and time of exam: November 24, 2024 1800 hours INDICATIONS: Bilateral leg edema today Technique: Multiple sonographic images of the deep venous system have been obtained. B-mode/2-D grayscale imaging of vascular structures and Doppler spectral analysis (waveforms) and color performed Both legs are examined. Findings: Deep venous systems do not demonstrate abnormal echogenicity. All visualized deep veins exhibit compressibility. All visualized deep veins exhibit augmentation. Impression: Negative for deep vein thrombosis
[2024-11-24] MEDS: ALBUMIN HUMAN 25% IVPB 12.5 GM/50 ML BTL IV (18:04)
[2024-11-24] MEDS: SODIUM CHLORIDE 0.9% 1000 ML 1,000 ML 100 ML IV (18:04)
[2024-11-24 18:09] LABS: Albumin, Serum 3.1 gm/dL (3.4-4.8); Anion Gap 14 (7-16); BUN/Creatinine Ratio 58 Ratio (12-20); Calcium 8.5 mg/dL (8.3-10.6); Calcium (Corrected) 9.2 mg/dL (8.5-10.1); Carbon Dioxide 21.6 mMol/L (20.0-31.0); Chloride 110 mMol/L (98-107); Creatine Kinase 232 U/L (34-171); Creatinine (Component) 2.5 mg/dL (0.6-1.3); Glucose 107 mg/dL (74-106); Magnesium 1.9 mg/dL (1.6-2.6); Osmolality,Calculated 338 (275-295); Potassium 5.5 mMol/L (3.4-5.1); Sodium 146 mMol/L (136-145); eGFR 19 See Note
[2024-11-24 19:31] LABS: Blood Urea Nitrogen 146 mg/dL (9-23)
--- NOTE | 2024-11-24 20:06 | PC.NURSE ---
report called to manuelito MUSTAFA. Takeing pt up to rm on monitor.
--- NOTE | 2024-11-24 20:07 | PC.NURSE ---
blood transfusion in progress. family at bedside.
[2024-11-24] MEDS: PIPER/TAZO 3.375 GM PREMIX 3.375 GM/50 ML BAG IV (21:30)
[2024-11-25] VITALS (8 sets, daily range): BP systolic 101–137; BP diastolic 64–80; PULSE 73–104; RESP 17–27; TEMP 36.1–36.5; O2SAT 94–99
[2024-11-25] MEDS: ACETAMINOPHEN 325 MG TABLET 650 MG PO ×2 (00:09→23:32)
--- NOTE | 2024-11-25 03:59 | PC.NURSE ---
Patient's medical records from [facility] did not arrive with patient during admission to the unit. I called [facility] several times to get her records faxed over and gave them multiple fax numbers. They state there are currently having issues with their fax machine. They said they will try to fix the issue and fax the documents again.
[2024-11-25 05:39] LABS: Chloride,Urine Random < 20.0 mMol/L (55.0-125.0); Creatinine,Random Urine 179 mg/dL (30-125); Potassium,Urine Random 43 mMol/L (12-62); Sodium,Urine Random 15.7 mMol/L (20.0-110.0)
[2024-11-25 05:57] LABS: Basophils % (Auto) 0 % (0-2.5); Eosinophils # (Auto) 0.1 Thou/mm3 (0.0-0.5); Eosinophils % (Auto) 1 % (0-10); Hematocrit 23.3 % (36.0-46.0); Immature Granulocytes % (Auto) 4 % (0-0); Immature Granulocytes Auto 0.26 Thou/mm3 (0.00-0.00); Lymphocytes # (Auto) 1.2 Thou/mm3 (1.0-4.8); Lymphocytes % (Auto) 19 % (10-50); Mean Corpuscular HGB Conc 33.5 g/dl (31.0-37.0); Mean Corpuscular Hemoglobin 30.7 pg (25.0-35.0); Mean Corpuscular Volume 92 fL (80-100); Monocytes # (Auto) 0.5 Thou/mm3 (0.0-0.8); Monocytes % (Auto) 9 % (0-12); Neutrophils # (Auto) 4.2 Thou/mm3 (1.8-7.7); Neutrophils % (Auto) 67 % (37-80); Nucleated Red Blood Cell # 0.14 Thou/mm3 (0.00-0.00); Nucleated Red Blood Cell % 2 /100 WBC (0); Platelet Count 229 Thou/mm3 (140-440); RDW Standard Deviation 63.6 fL (36.4-46.3); Red Blood Count 2.54 Miln/mm3 (4.00-5.20); White Blood Count 6.2 Thou/mm3 (3.6-11.0)
[2024-11-25 05:59] LABS: Hemoglobin 7.8 g/dL (12.0-16.0)
[2024-11-25 06:38] LABS: Alanine Aminotransferase 10 U/L (10-49); Albumin, Serum 3.2 gm/dL (3.4-4.8); Albumin/Globulin Ratio 1.7 (1.2-2.2); Alkaline Phosphatase 54 U/L (46-116); Anion Gap 16 (7-16); BUN/Creatinine Ratio 57 Ratio (12-20); Bilirubin,Total 0.6 mg/dL (0.3-1.2); Calcium 8.4 mg/dL (8.3-10.6); Carbon Dioxide 20.5 mMol/L (20.0-31.0); Chloride 111 mMol/L (98-107); Creatinine (Component) 2.5 mg/dL (0.6-1.3); Globulin 1.9 gm/dL (2.3-3.5); Glucose 87 mg/dL (74-106); Magnesium 1.8 mg/dL (1.6-2.6); Osmolality,Calculated 337 (275-295); Phosphorous 6.9 mg/dL (2.4-5.1); Sodium 147 mMol/L (136-145); Total Protein 5.1 gm/dL (5.7-8.2); eGFR 19 See Note
[2024-11-25 06:40] LABS: Blood Urea Nitrogen 143 mg/dL (9-23)
[2024-11-25] MEDS: SEVELAMER CARBONATE 800 MG TABLET PO ×3 (08:19→17:12)
[2024-11-25] MEDS: PANTOPRAZOLE 40 MG TABLET PO (08:19)
[2024-11-25] MEDS: PIPER/TAZO 3.375 GM PREMIX 3.375 GM/50 ML BAG IV ×2 (08:28→20:07)
--- NOTE | 2024-11-25 08:46 | EKG_ITS ---
[facility] Test Date: 2024-11-25 Pat Name: JOSE LUCAS [facility] Gender: [facility] Charge Coordinator: BERNARDA : 1940 Requested By: Yang Rosas Order Number: [id number] Reading MD: Yang Rosas Measurements Intervals Banner Rate: 87 P: MS: QRS: 13 QRSD: 81 T: -12 QT: 367 QTc: 444 Interpretive Statements ATRIAL FIBRILLATION LOW QRS VOLTAGE IN PRECORDIAL LEADS POSSIBLE ANTERIOR MYOCARDIAL INFARCTION , PROBABLY OLD ABNORMAL RHYTHM ECG Compared to ECG 02/20/2024 21:27:23 Myocardial infarct finding now present Sinus rhythm no longer present Sinus arrhythmia no longer present /store/S0/[id number].pdf
--- NOTE | 2024-11-25 08:52 | PD.RESPRO ---
Documentation for date of: 11/25/24 Subjective Subjective Interval history: History is limited as patient is poor historian at this time and cannot hear very well. Cheri is a 84-year-old female with past medical history of HFpEF (EF:50-55%), hypertension, Torres's palsy, Parkinson's, CKD, Afib (on Eliquis) who comes in for an evaluation after labs had revealed the patient's kidney function was altered. Patient comes from nursing facility and was found to have elevated creatinine. Patient was recently put into the senior living about a month ago and this was because of recurrent falls and lack of support at home. While at the senior living, patient has been having poor oral intake. It is unknown if patient is having poor oral intake due to appetite or if a possible mass in her right mandibular area is affecting her. Patient says that she is not having any symptoms, however says she has not eaten in about 4 to 5 days, is unsure if its her appetite. She denies any vomiting, nausea, diarrhea, abdominal pain, chest pain or shortness of breath. Patient has been using oxygen however at the nursing facility and is unsure why. Patient's claims service representative is Dr. Reynolds. She was told by her heart doctor and her primary care doctor to limit her fluid intake. She takes her medicines as prescribed. Family present at bedside says that they are not allowed to receive information about her health care unless it is approved by her. The son of the patient is currently working on power of banana carrier for the patient at this time. No other complaints at this time. Denies a history of urinary retention. Patient was recently discharged from the hospital in October for JANEY and uremia and similar symptoms. ED course: Patient came to the ED with a temperature of 97.9, heart rate 85, respiratory 18, blood pressure of 99/65, saturating 95% on room air. Patient was worked up was found to have a sodium of 146, potassium 5.6, chloride 108, bicarb 28.9, BUN 148, creatinine 2.5, GFR 19, glucose 97, osmolarity 338, lactate 0.9, calcium 9.4, BNP 460, lipase 91, urine protein +2, urine blood +2, urine bilirubin +1, urine RBCs 182, urine WBCs 59, bacteria 1, yeast present, leukocyte esterase positive, hemoglobin 7.4, white count 7.1. Chest x-ray showed left base pneumonia, however appears to have some vascular congestion as well. Face CT was done for evaluation of right side of face which showed extensive bone destruction involving right body of the mandible with associated soft tissue masses external and internal to the mandible. Patient was given normal saline 500 mL, Kayexalate 15 g x1, and Levaquin 750 mg x 1. Medicine was consulted and patient admitted to the floors PMHx: As above Surgeries: Meds: Allergies: Family Hx: Social Hx: Born in [place], moved to [place] around ~50 years ago. Never drank, never has smoked, no history of drug use IV or oral. 11/25/2024: Patient examined at bedside today. No acute overnight events. Patient's sodium 147, potassium 5, BUN/creatinine 143 and 2.5 respectively, blood glucose 87, white count 6.2, hemoglobin 7.8, phosphorus 6.9, magnesium 1.8, urine sodium 15, urine urea 377, urine creatinine 179. Patient's renal labs did not improve, and patient's creatine kinase was elevated as well. Due to patient's longstanding history of hematuria, patient may benefit from renal biopsy for diagnosis of possible nephrotic syndrome. Patient cannot receive fluids at this time or diuresis due to kidney injury. Patient is agreeable with procedure. Exam Vital Signs Temp Pulse Resp BP Pulse Ox O2 Del Method 97.3 F 89 17 137/79 H 96 Room Air 11/25/24 04:00 11/25/24 04:00 11/25/24 04:00 11/25/24 04:00 11/25/24 04:00 11/25/24 04:00 Narrative Exam General: AAOx2, appears to be bedbound, smiling, understands some Slovenian, able to respond to questions HEENT: Dry mucous membranes, poor dentition, some dried blood around mandibular area, right mandibular swelling that could be indicative of a mass, conjunctiva clear, EOMI, PERRLA, Cardiovascular: Irregularly irregular, radial pulses +2 bilaterally, S1, S2, ejection systolic murmur auscultated Pulmonary: Minimal crackles heard, no cough GI: Some possible rebound tenderness on left upper quadrant, bowel sounds present Extremities: Anasarca +3 bilaterally up to thigh Skin: Numerous areas of purpura seen in upper and lower extremities, rash that appears to be flat and erythematous inferior to sternum appears to be patch like Neuro: AAOx2, limited neurologic exam Psych: Able to slightly cooperate Objective Labs 11/25/24 04:36 11/25/24 04:36 Labs: Laboratory Results - last 24 hr 11/24/24 11/24/24 11/24/24 10:55 13:35 13:50 WBC 7.1 RBC 2.28 L Hgb 7.4 L Hct 21.6 L* MCV 95 MCH 32.5 MCHC 34.3 RDW Std Deviation 61.8 H Plt Count 266 D Neut % (Auto) 60 Lymph % (Auto) 25 [place] % (Auto) 9 Eos % (Auto) 1 Baso % (Auto) 0 Neut # (Auto) 4.2 Lymph # (Auto) 1.8 [place] # (Auto) 0.7 Eos # (Auto) 0.1 Baso # (Auto) 0.0 Immature Gran # (Auto) 0.28 H Absolute Nucleated RBC 0.17 H Immature Gran % 4 H Nucleated RBC % 2 H PT 14.4 H INR 1.3 APTT 33.9 Sodium 146 H Potassium 5.6 H Chloride 108 H Carbon Dioxide 20.9 Anion Gap 17 H BUN 148 H* Creatinine 2.5 H Estim Creat Clear Calc Not Performed. eGFR 19 L BUN/Creatinine Ratio 59 H Glucose 97 Calculated Osmolality 338 H Lactic Acid 0.9 Calcium 8.9 Corrected Calcium 9.4 Phosphorus Magnesium Total Bilirubin 0.7 ALT 12 Alkaline Phosphatase 66 Total Creatine Kinase B-Natriuretic Peptide 460 H* Total Protein 5.4 L Albumin 3.4 Globulin 2.0 L Albumin/Globulin Ratio 1.7 Lipase 91 H Procalcitonin 0.25 Ur Collection Type Clean Catch Urine Color Yellow Urine Clarity Hazy Urine pH 5.5 Ur Specific [place] 1.022 Urine Protein 2+ A Urine Glucose (UA) Negative Urine Ketones Negative Urine Blood 2+ A Urine Nitrite Negative Urine Bilirubin 1+ A Urine Urobilinogen (Auto) 2.0 Ur Leukocyte Esterase Positive Urine RBC 182 H Urine WBC 59 H Ur Squamous Epith Cells 8 H Urine Bacteria 1+ A Hyaline Casts 1 Urine Yeast (Budding) Present A Ur Random Creatinine Ur Random Sodium Ur Random Potassium Ur Random Chloride Ur Random Urea Nitrogn Blood Type O Positive Antibody Screen NEGATIVE Crossmatch See Detail Blood Bank Wristband ID Yes 11/24/24 11/25/24 11/25/24 17:13 03:30 04:36 WBC 6.2 RBC 2.54 L Hgb 7.8 L Hct 23.3 L MCV 92 MCH 30.7 MCHC 33.5 RDW Std Deviation 63.6 H Plt Count 229 D Neut % (Auto) 67 Lymph % (Auto) 19 [place] % (Auto) 9 Eos % (Auto) 1 Baso % (Auto) 0 Neut # (Auto) 4.2 Lymph # (Auto) 1.2 [place] # (Auto) 0.5 Eos # (Auto) 0.1 Baso # (Auto) 0.0 Immature Gran # (Auto) 0.26 H Absolute Nucleated RBC 0.14 H Immature Gran % 4 H Nucleated RBC % 2 H PT INR APTT Sodium 146 H 147 H Potassium 5.5 H 5.0 D Chloride 110 H 111 H Carbon Dioxide 21.6 20.5 Anion Gap 14 16 BUN 146 H* 143 H* Creatinine 2.5 H 2.5 H Estim Creat Clear Calc Not Performed. Not Performed. eGFR 19 L 19 L BUN/Creatinine Ratio 58 H 57 H Glucose 107 H 87 Calculated Osmolality 338 H 337 H Lactic Acid Calcium 8.5 8.4 Corrected Calcium 9.2 9.0 Phosphorus 7.0 H 6.9 H Magnesium 1.9 1.8 Total Bilirubin 0.6 ALT 10 Alkaline Phosphatase 54 Total Creatine Kinase 232 H B-Natriuretic Peptide Total Protein 5.1 L Albumin 3.1 L 3.2 L Globulin 1.9 L Albumin/Globulin Ratio 1.7 Lipase Procalcitonin Ur Collection Type Urine Color Urine Clarity Urine pH Ur Specific [place] Urine Protein Urine Glucose (UA) Urine Ketones Urine Blood Urine Nitrite Urine Bilirubin Urine Urobilinogen (Auto) Ur Leukocyte Esterase Urine RBC Urine WBC Ur Squamous Epith Cells Urine Bacteria Hyaline Casts Urine Yeast (Budding) Ur Random Creatinine 179 H Ur Random Sodium 15.7 L Ur Random Potassium 43 Ur Random Chloride < 20.0 L Ur Random Urea Nitrogn 377.0 Blood Type Antibody Screen Crossmatch Blood Bank Wristband ID Quality Measures Quality Measures none Advance care planning discussed with:: patient Assessment & Plan Assessment Current Active Medications: Generic Name Dose Route Start Last Admin Trade Name Freq PRN Reason Stop Dose Admin Acetaminophen 650 mg 11/24/24 23:56 11/25/24 00:09 Acetaminophen 325 Mg Tablet PO 12/24/24 23:55 650 mg Q6HR PRN Administration pain and Fever >100.4 Docusate Sodium 100 mg 11/24/24 15:47 Docusate Sod 100 Mg Capsule PO 12/24/24 15:46 QDAY PRN CONSTIPATION Protocol Piperacillin/Tazobactam/Dextrose 3.375 gm in 50 mls @ 12.5 mls/hr 11/24/24 21:00 11/25/24 08:28 Zosyn IV 12/01/24 20:59 12.5 mls/hr Q12HR PRINCESS Administration Ondansetron HCl 4 mg 11/24/24 15:47 Ondansetron Inj 2 Mg/Ml Inj 2 Ml IVP 12/24/24 15:46 Q6H PRN NAUSEA OR VOMITING Protocol Pantoprazole Sodium 40 mg 11/25/24 09:00 11/25/24 08:19 Pantoprazole 40 Mg Tablet PO 12/25/24 08:59 40 mg QDAY PRINCESS Administration Pharmacy Consult 1 each 11/24/24 17:03 Pharmacy Renal Dose Adjustment 1 Ea XX 12/24/24 17:02 PRN PRN CONSULT Sevelamer Carbonate 800 mg 11/25/24 08:00 11/25/24 08:19 Sevelamer Carbonate 800 Mg Tablet PO 12/25/24 07:59 800 mg TIDWM PRINCESS Administration Plan Assessment Cheri is a 84-year-old female with past medical history of HFpEF (EF:50-55%), hypertension, Torres's palsy, Parkinson's, CKD, Afib (on Eliquis) who is currently admitted for JANEY and uremia. #Acute kidney injury on CKD stage IIIb #Anasarca #Hyperkalemia #Uremia #Prerenal azotemia #Hyperphosphatemia DDx: Prerenal versus ATN versus obstructive Hypovolemia is high on differential at this point, BUN/creatinine ratio ~60 Patient endorses poor oral intake Patient appears to be intravascularly volume depleted, this could have been due to diuresis in combination with oral intake, although patient appears to have anasarca Patient could be having platelet dysfunction with uremia as patient has numerous areas of purpura, however patient is taking Eliquis High suspicion for JANEY causing uremia, however will rule out other factors including toxic ingestion, acidosis and other electrolyte abnormalities and infection Unsure if pt has had stones before Pt has vivas now 11/25/2024: FEUrea: 3.7, indicating prerenal ideology Urine sodium 15 Patient is unable to receive fluids due to fluid overload at this time, and cannot receive diuresis due to JANEY Patient continues to have uremia, creatinine 2.5, BUN 143 Patient went will likely need to be on dialysis, however we need to determine the ideology of the JANEY to see if patient will need longstanding dialysis Therefore we will do a renal biopsy as this is the patient's second time for having these episodes of uremia Urine output seems only to be 100 cc past 24 hours Patient could have underlying nephritic syndrome or ATN Patient could have MPGN, lupus nephritis, or other nephritic syndromes, however unlikely to present at this age, however patient could have had this longstanding as well, will further workup with additional testing Renal US: Small left kidney Bilateral renal parenchymal scar formation mild Bilateral renal cortical thinning No hydronephrosis Plan: ? Vivas ? Strict DORIS's ? Avoid nephrotoxic agents ? Renally dose medicines ? Trend CMP and lytes ? US Renal biopsy tomorrow, coagulation panel and holding DVT prophylaxis for tomorrow ? TIP, HIV, hepatitis panel, hep C #UTI Patient may be colonized at this point, however shows WBCs, shows bacteria shows leukocyte esterase Previous cultures are Proteus and Klebsiella that do appear to be mainly pansensitive Plan: ? Continue with IV Zosyn ? Follow-up blood and urine cultures #Hematuria DDx: Nephritic syndrome, IgA nephropathy or bladder malignancy Patient could also have rhabdo as well as patient has RBCs +2 blood and 183 RBCs Blood seen in previous Urinalyses Patient may have underlying nephritic syndrome which is causing patient's kidney problems at this point Due to chronicity of hematuria, patient will benefit from renal biopsy Plan: ? Renal biopsy tomorrow ? Consider further imaging and urology consult #Normocytic anemia Likely anemia of chronic disease Hgb 7.8 Plan: ? Consider iron studies ? Trend with CBC #Facial mass, R side #Hypertension #Hyperlipidemia #A-fib #Torres's palsy #HFpEF Above managed by primary hospitalist team Patient seen and care discussed with my attending physician, Dr. Omid Washington, PGY-1 Attending Provider Attestation/Addendum Patient seen and examined with resident physician Dr. Gutierrez. Note reviewed, agree with findings and recommendations. Patient presented to my office with weakness, not feeling well in the right jaw lump. Workup showed that she is in the acute kidney injury. Admitted for further evaluation. Cannot give IV fluids as patient clinically looks rather fluid overloaded. Gave 250 cc fluids. If no improvement-will plan for dialysis in AM. 11/25/2024 patient's urinary output still remains low. Spoke to her claims service representative Dr. Ksenia Reynolds-patient seems to be in cardiorenal syndrome. Decided to proceed with Bumex and albumin over the weekend prior to initiation of dialysis, unless patient's albumin remains very high. Clinically she is more alert and awake. Very hard of hearing-acute and not sure exactly what is going on. Patient also noted to have significant hematuria for the last Few months. In the setting of renal failure decided to proceed with kidney biopsy in AM. Plan of care discussed with primary team. Added iron, Procrit for her anemia. Urine sodium less than 15 in the setting of significant fluid overload consistent with prerenal azotemia//cardiorenal syndrome
[2024-11-25] MEDS: ONDANSETRON INJ 2 MG/ML INJ 2 ML 4 MG IVP (13:38)
--- NOTE | 2024-11-25 13:59 | PD.RESCONSUL ---
HPI Data of Consult Requesting Physician: Jazmín Macias DO Admitting Provider: Jazmín Macias DO Attending Provider: Jazmín Macias DO Primary Care Provider: Kurt Woody MD Consult Narrative History of present illness: Patient is a 84 year old female with past medical history of hypertension, Atrial fibrillation on eliquis, CHF HpEF 55-60%, Parkinson's and hypothyroidism. Patient presented to the emergency with a worsneing JANEY, sent by Help Desk Associate, Dr. Anne. Patient is hard of hearing and overall poor historian. Patient was alert and oriented during physical exam but unable to explain past medical history. Per chart review patinet presented with worsening dehydration and worsening cheek swelling. Patinet also noted to have lower extremity edema. Concern for acute encephalopathy on admission and CT obtained. ED course: - Vitals are stable at the time of admission - Labs at the time of admission showed hemoglobin 7.4, platelets 266, sodium 146, potassium 5.6, chloride 108, BUN 148, anion gap 17, creatinine 2.5, BNP 460, albumin 3.4, procalcitonin 0.25 - Urinalysis showed 2+ proteinuria, 2+ blood, 1+ bilirubin, 182 RBC, 59 WBC, 1+ bacteria - Chest x-ray showed bilateral patchy infiltrates - Face CT showed extensive bone destruction involving the right mandible with associated soft tissue involving inside and outside of the mandible PMH: Hypertension, Atrial Fibrillaiton, CHF HpEF 55-60%, Hypothyrodism, Parkinson's Disease, and history of Torres's Palsy. 11/25/2024: Cardiology Consulted for CHF exacerbation. Medication: Eliquis 2.5 BID,Aspirin 81 mg qday Amlodipine 10 mg qday, Hydralazine 25 PO TID, LIsinopril 20 mg qday, Carvedilol 6.25 mg PO BID, Sertraline 50 mg PO Qday, Levothyroxine 25 mcg PSH: cholecystecomy PFH: unable to obtain, patient unsure Allergies: None 11/25/2024: Patient exmained at bedside. Alert & Orientated X 3. Patient is overall poor historian and hard of hearing. Denied chest pain or shortness of breath. Concern for right cheek swelling. Patient noted to have peripheral edema. cc:: cc: Jazmní K Macias, DO Review of Systems Review of Systems Narrative Review of Systems: General appearance: NO weight change, NO fatigue, NO weakness, NO fever, NO chills, NO night sweats, No cough Skin: NO rash, NO itching, NO sores, NO moles HEENT: NO Trauma, NO nausea, NO vomiting, NO visual changes, NO blurry vision, NO double vision, NO tinnitus, NO vertigo, NO ear discharge, NO rhinorrhea, NO stuffiness, NO sneezing, NO allergy, NO epistaxis. NO Hoarseness, NO sore throat, NO swollen neck. Cardiac: NO Palpitations, NO dyspnea on exertion, NO orthopnea, NO paroxysmal nocturnal dyspnea, YES edema Respiratory: NO Shortness of Breath, NO Wheezing, NO Cough, NO Sputum, NO hemoptysis GI:NO appetite, NO nausea, NO vomiting, NO dysphagia, NO changes in bowel frequency, NO stool color, NO diarrhea, NO constipation, NO hemetemesis, NO hemorrhoids, NO melena, NO hematechezia, NO abdominal pain, NO jaundice Renal: NO frequency, NO hesitancy, NO urgency, NO hematuria, NO nocturia, NO incontinence MSK: NO muscle weakness, NO gout, NO arthritis, NO muscle stiffness Neuro: NO headaches, NO tremors, NO weakness, NO paralysis, NO seizures, NO loss of consciousness, NO numbness. Hem: NO anemia, NO easy bruising/bleeding, NO petechiae, NO purpura Endo: NO heat/cold intolerance, NO excessive sweating, NO polyuria, NO polydipsia, NO polyphagia, YES thyroid problems, NO diabetes Pysch: NO mood, NO anxiety, NO depression Exam Vital Signs Temp Pulse Resp BP Pulse Ox O2 Del Method 97.4 F 85 25 H 116/69 97 Room Air 11/25/24 12:11/25/24 12:11/25/24 12:00 11/25/24 12:00 11/25/24 12:11/25/24 12:00 Narrative Exam General Appearance: Alert & Oriented X3, well-nourished female who is lying in bed in no acute distress HEENT: Skull symmetrical and atraumatic. Conjunctivae pale and moist. Pupils equal, round, reactive to light and accommodation (PERRL). External ear without lesion or discharge. Straight, nares patient, mucosa pink, no discharge. Cardio: Normal Rate and Rhythm with S1 and S2 heart sounds. Possible murmur noted on mitral region.. No bruits on carotid auscultation. Peripheral edema, 2+ Lungs: Symmetric with good expansion. Chest and back non-tender. Breath sounds vesicular without crackles, wheezing or rhonchi Abdomen: Non-tender, Non-distended, Normal Reactive Bowel Sounds Neuro: Alert, cooperative, oriented to person, place, and time. Speech clear. CN grossly intact. Upper motor strength 5/5 and Lower motor strength 5/5. Sensation intact. Results Labs 11/25/24 04:36 11/25/24 04:36 Labs: Short CBC 11/25/24 Range/Units 04:36 WBC 6.2 (3.6-11.0) Thou/mm3 Hgb 7.8 L (12.0-16.0) g/dL Hct 23.3 L (36.0-46.0) % Plt Count 229 D (140-440) Thou/mm3 BMP 11/24/24 11/25/24 17:13 04:36 Sodium 146 H 147 H Potassium 5.5 H 5.0 D Chloride 110 H 111 H Carbon Dioxide 21.6 20.5 BUN 146 H* 143 H* Creatinine 2.5 H 2.5 H Glucose 107 H 87 Calcium 8.5 8.4 Cardiac Enzymes 11/24/24 Range/Units 17:13 Total Creatine Kinase 232 H (34-171) U/L Liver Function 11/24/24 11/25/24 Range/Units 17:13 04:36 Total Bilirubin 0.6 (0.3-1.2) mg/dL ALT 10 (10-49) U/L Alkaline Phosphatase 54 (46-116) U/L Albumin 3.1 L 3.2 L (3.4-4.8) gm/dL Urine 11/24/24 Range/Units 13:50 Urine Color Yellow (Lt Yel-Yel) Urine Clarity Hazy (Clear/Hazy) Urine pH 5.5 (5.0-7.0) Ur Specific Golva 1.022 (1.001-1.035) Urine Protein 2+ A (Neg - Trace) Urine Glucose (UA) Negative (Negative) Quality Measures Quality Measures none Advance care planning discussed with:: child Medications Home Medications and Allergies Home Medications ?Medication ?Instructions ?Recorded ?Confirmed ?Type amlodipine 10 mg tablet 10 mg PO DAILY 10/20/21 11/25/24 History lisinopril 40 mg tablet 40 mg PO DAILY 10/20/21 11/25/24 History ondansetron 4 mg disintegrating 4 mg PO [id number] PRN nausea and 02/21/24 11/25/24 History tablet vomiting apixaban 2.5 mg tablet (Eliquis) 2.5 mg PO BID 10/26/24 11/25/24 History carvedilol 6.25 mg tablet 6.25 mg PO BID 10/26/24 11/25/24 History furosemide 40 mg tablet 40 mg PO QDAY 10/26/24 10/26/24 History Held on 10/28/24. Instructions: Resume on 11/11/24. till evaluated by nephrology hydralazine 25 mg tablet 25 mg PO TID 10/26/24 11/25/24 History metolazone 2.5 mg tablet 2.5 mg PO QDAY 10/26/24 10/26/24 History Held on 10/28/24. Instructions: Resume on 11/11/24. Hold until seen by Nephrology acetaminophen 325 mg capsule 650 mg PO Q6H PRN pain 11/25/24 11/25/24 History aspirin 81 mg capsule 81 mg PO QDAY 11/25/24 11/25/24 History bisacodyl 10 mg rectal suppository 10 mg VT QDAY PRN constipation 11/25/24 11/25/24 History (Dulcolax (bisacodyl)) bumetanide 0.5 mg tablet 0.5 mg PO QDAY 11/25/24 11/25/24 History ferrous sulfate 325 mg (65 mg 325 mg PO BID 11/25/24 11/25/24 History iron) tablet (Feosol) levothyroxine 25 mcg tablet 25 mcg PO QDAY 11/25/24 11/25/24 History lisinopril 20 mg tablet 20 mg PO QDAY 11/25/24 11/25/24 History magnesium hydroxide 400 mg/5 mL 30 ml PO Q72H PRN constipation 11/25/24 11/25/24 History oral suspension (Milk of Magnesia) sertraline 50 mg tablet 50 mg PO QDAY 11/25/24 11/25/24 History sodium phosphates 19 gram-7 118 ml VT Q72H PRN constipation 11/25/24 11/25/24 History gram/118 mL enema (Fleet Enema) Allergies Allergy/AdvReac Type Severity Reaction Status Date / Time No Known Allergies Allergy Verified 11/24/24 10:25 Visit Medications Acetaminophen (Acetaminophen 325 Mg Tablet) 650 mg PO Q6HR PRN PRN Reason: pain and Fever >100.4 Stop: 12/24/24 23:55 Last Admin: 11/25/24 00:09 Dose: 650 mg Bumetanide (Bumetanide Inj 0.25 Mg/Ml Vial 4 Ml) 2 mg IVP BID [facility] Stop: 12/25/24 13:29 Docusate Sodium (Docusate Sod 100 Mg Capsule) 100 mg PO QDAY PRN; Protocol PRN Reason: CONSTIPATION Stop: 12/24/24 15:46 Piperacillin/Tazobactam/Dextrose (Zosyn) 3.375 gm in 50 mls @ 12.5 mls/hr IV Q12HR [facility] Stop: 12/01/24 20:59 Last Admin: 11/25/24 08:28 Dose: 12.5 mls/hr Albumin Human (Albuminar-25 Ivpb) 25 gm in 100 mls @ 100 mls/hr IV BID [facility] Stop: 11/28/24 13:29 Ondansetron HCl (Ondansetron Inj 2 Mg/Ml Inj 2 Ml) 4 mg IVP Q6H PRN; Protocol PRN Reason: NAUSEA OR VOMITING Stop: 12/24/24 15:46 Last Admin: 11/25/24 13:38 Dose: 4 mg Pantoprazole Sodium (Pantoprazole 40 Mg Tablet) 40 mg PO QDAY [facility] Stop: 12/25/24 08:59 Last Admin: 11/25/24 08:19 Dose: 40 mg Pharmacy Consult (Pharmacy Renal Dose Adjustment 1 Ea) 1 each XX PRN PRN PRN Reason: CONSULT Stop: 12/24/24 17:02 Sevelamer Carbonate (Sevelamer Carbonate 800 Mg Tablet) 800 mg PO TIDWM [facility] Stop: 12/25/24 07:59 Last Admin: 11/25/24 12:20 Dose: 800 mg Discontinued Medications Epoetin Jorge (Epoetin Jorge-Epbx Inj 10,000 Unit/Ml Vial (Esrd)) 10,000 unit SC X1 ONE Stop: 11/25/24 13:20 Heparin Sodium (Porcine) (Heparin Sod Inj 5000 Unit/Ml Vial) 5,000 unit SC Q8HR [facility] Stop: 12/08/24 21:59 Sodium Chloride (Ns) 500 mls @ 250 mls/hr IV .Q2H ONE Stop: 11/24/24 14:43 Last Infusion: 11/24/24 18:16 Dose: Infused Levofloxacin/Dextrose (Levaquin Ivpb) 750 mg in 150 mls @ 100 mls/hr IV X1 ONE Stop: 11/24/24 14:58 Last Infusion: 11/24/24 18:16 Dose: Infused Sodium Chloride (Ns) 1,000 mls @ 80 mls/hr IV .[id number] ONE Stop: 11/25/24 04:58 Last Admin: 11/24/24 18:15 Dose: Not Given Piperacillin/Tazobactam/Dextrose (Zosyn) 50 mls @ 100 mls/hr IV Q8HR [facility] Stop: 12/01/24 16:29 Albumin Human (Albuminar-25 Ivpb) 12.5 gm in 50 mls @ 50 mls/hr IV X1 ONE Stop: 11/24/24 17:50 Last Infusion: 11/24/24 19:07 Dose: Infused Sodium Chloride (Ns) 1,000 mls @ 100 mls/hr IV .Q10H ONE Stop: 11/25/24 02:28 Last Admin: 11/24/24 18:04 Dose: 100 mls/hr Ferumoxytol 510 mg/ Sodium (Chloride) 117 mls @ 234 mls/hr IV X1 ONE Stop: 11/25/24 13:20 Levalbuterol HCl (Levalbuterol Rt 0.63 Mg/3 Ml Nebu) 0.63 mg INH X1 ONE Stop: 11/24/24 16:45 Last Admin: 11/24/24 16:58 Dose: 0.63 mg Sodium Polystyrene Sulfonate (Sod Polystyrene Sulfon Susp 15 Gm/60 Ml Btl) 15 gm PO X1 ONE Stop: 11/24/24 12:45 Last Admin: 11/24/24 14:59 Dose: 15 gm Assessment & Plan Plan Patient is a 84 year old female with past medical history of hypertension, Atrial fibrillation on eliquis, CHF HpEF 55-60%, Parkinson's and hypothyroidism. Patient presented to the emergency with a worsneing JANEY, sent by Help Desk Associate, Dr. Anne. Patient is hard of hearing and overall poor historian. Patient was alert and oriented during physical exam but unable to explain past medical history. Per chart review patinet presented with worsening dehydration and worsening cheek swelling. Patinet also noted to have lower extremity edema. Concern for acute encephalopathy on admission and CT obtained. #Acute on chronic Diastolic CHF exacerbation - HFpEF with EF of 55-60% #Grade 1 diastolic dysfunction #PAH RSVP >60 Patient presented with worsening peripheral edema with BNP 460 and Chest x-ray some vascular constion on right lung field. 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 Echo (11/24/2024): Normal left ventricular size and function. Estimated EF at 55-60 %. Grade 1 diastolic dysfunction. Mildly dilated RV with normal RV systolic function. Moderate PAH with an RVSP > 60 mm hg. Moderate TR. Mild MR, Mild MAC. Moderate AV sclerosis without stenosis. No Pericardial effusion. Cxr: noted for left base pneumonia. MIld vascular congestion noted. BNP 460 Lipid Panel 81, Cholesterol 127, LDL 56, HDl 55 TSH (02/22/2024): 1.60, repeat A1c (02/22/2024) 5.0 Plan -Bumex 2 mg IV BID -Albumin 25 mg BID -Diuresis, monitor blood pressure -Holding off GDMT, including Coreg given soft blood pressure and diuresis -TSH AM -K>4 and Mg >2 #JANEY on CKD IIIb #Hypernatremia #Hyperkalemia, resolved. Patient has a past medical history of CKD with best Cr baseline of 1.3, GFR of 41, and BUN 77 (10/29/2024). Presented with Cr of 2.5 thus Cr >0.3 change and likely JANEY. BUN/CR ratio of 59 indicating pre-renal injury. FeNa noted to be 0.1% thus indicating pre-renal, consider cardio-renal vs worsening CKD vs monitor for signs of intrinsic failure Renal US (11/24/2024): Mild bilateral renal parenchymal scar formation, small left kidney Plan -TIP, Hep, and HIV -Renally dose medication -avoid nephrotoxins #History of Atrial Fibrillation Plan -Holding Eliquis 2.5 mg BID given increased risk of bleeding and holding Carvedilol #Hypertension Currently holding home medication given soft blood pressure. Plan -Hold Amlodipine, Hydralazine 25 mg PO TID, and Lisinopril 20 mg qday -Patient would benefit form medication reconciliation as BP has been within normal range with only two intances of systolic BP of 170s. #Hematuria: UA noted to have protein 2+, urine Blood 2+, and 182 H RBCs, given elevated protein, nephro concern for Nephrotic vs malignancy. CK 232; UA Protien 2+, Blood 2+, Esterase +, RBC 182, WBC 59, Squamous 8 Plan -NPO after midnight -Renal biopsy #UTI Patinet on arrival presented with acute encephlopathy likely in the setting UTI as UA noted to be hazy, esterase positive, and WBC positive vs less likely secondary to pneumonia as no wheezing or rhnochi noted on physical, mild crackles noted during physical exam. NO pyrexia reported. 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 Hope. - Zosyn 3.375 g every 12 hourly - CT guided biopsy -Coagulation study for mandible and renal biopsy #Normocytic Anemia Over the past several months, patient Hgb continues to drop likley in the setting of iron deficiency vs hematuria vs anemia of chronic disease vs anemia of CKD. Plan -Pending occult stool -Consider Iron panel -Consider Lead levels in the setting of bleeding gums (bleeding gums likely in the setting of mandible mass and less likely to lead) -Consider resuming iron tablets form home medicaton list -EPO via Nephro -s/p 1 transfusion #Hypothyroidism Past medical history of hypothyrodism, on Levothyroxine Plan -TSH AM -Consider resuming medication #Acute Encephalopathy, resolved. likely metabolic in nature given uremia vs infectious given UTI vs Pneumonia vs stroke #History of Torres's Palsy #History of Parkinson's Disease Health Maintenance: Disp: Pt is currently admitted to floors for further management of JANEY on CKD, Mass, and CHF exacerbation, cardiology consulted. FEN: NPO, Plan for multiple biopsy (Renal Diet) DVT: Holding GI: Protonix Code: DNR - The patient's plan was discussed with attending Dr. Yana Conway MD PGY1 Internal Medicine Attending Provider Attestation/Addendum I have personally seen and examined the patient separately on the above date of service and discussed the plan of care with the resident. I reviewed the resident Dr. Ashlie Conway consultation note and agree with the resident findings and plan in the note above and have also edited the documentation to reflect my findings and plan. Patient well-known to me and she follows up with me in the clinic regularly since last year. 84-year-old female with a past medical history of paroxysmal atrial fibrillation with RVR on Eliquis, diastolic congestive heart failure or HFpEF with an EF of 55 to 60% diagnosed in 2023, CKD stage III and history of cardiorenal syndrome previously, chronic anemia mostly secondary to CKD, obesity, hypothyroidism, questionable Parkinson's presented to the emergency department for further evaluation of abdominal labs including a BUN of 145 and a creatinine of 2.[address] Anne office Patient was apparently recently admitted in October 2024 and was found to have acute kidney injury also at that point of time with a BUN of 85 and creatinine around 2.5 and patient was metolazone and Lasix at that point of time both of which were stopped and the patient was sent to rehab. Patient did not receive any kind of diuretics for almost 20 days. Patient was later started on Bumex 1 mg once daily as she continued to have shortness of breath along with severe leg swelling few days ago. Now patient JANEY with a BUN of 148 and a creatinine of 2.5. Patient was elevated 4.6 and sodium was also elevated at 146. Hemoglobin 8 down to 7.4. Procalcitonin elevated at 0.25. Albumin is 3.4 but previous albumin 3.1 and 3.2. BNP was 460. Chest x-ray showed bilateral patchy infiltrates concerning for some congestion along with possible infection. During my examination patient appeared to be volume overloaded apparently 3+ edema and possibly patient is low oncotic pressure in the setting of some hypoalbuminemia. Last albumin level is only 3.1. Patient did not making much urine and could have ATN also. There was hematuria to urinalysis studies were sent. Nephrology was consulted initially and patient did receive some fluids 104 mL ED 500 cc. There was no significant improvement and BUN still stayed around 145 creatinine of 2.5. Discussed with orange picker as well as the hospitalist in detail about the patient. Patient still making urine but appears oliguric at the present point of time. Recommend to start the patient on Bumex 2 mg IV twice daily for tonight and will evaluate her renal function in the morning. Will also give albumin half an hour prior to the Bumex dose. Continue strict output Daily weights and 2 g sodium diet. Will reevaluate the labs tomorrow morning and continue to titrate the diuresis based on the response. Patient does have a history of atrial fibrillation and was on Eliquis 2.5 mg twice daily given in the ED as well as the kidney function. Patient is anemic at hemoglobin was 7.8 and there was questionable bleeding. Patient also presented with severe hearing impairment. As per the family it has been slowly decreasing over the last 3 to 4 months but the past couple of days patient is unable to hear very well and have to write most of the messages in the board.. Primary team already started further evaluation of the same. Patient also has right cheek mass and primary team already consulted ENT for further evaluation of the same. CT shows possible possible bone destruction along with degenerative changes,. Management of rest of the medical conditions as per primary team and other consultants. Thank you for the consult and allowing me to participate in the care of the patient. Cardiology will continue to follow. Ra Millan M.D. Interventional Cardiology
[2024-11-25] MEDS: BUMETANIDE INJ 0.25 MG/ML VIAL 4 ML 2 MG IVP ×2 (14:28→20:06)
[2024-11-25] MEDS: EPOETIN ALFA-EPBX INJ 10,000 UNIT/ML VIAL (ESRD) 10000 UNIT SC (14:28)
[2024-11-25] MEDS: ALBUMIN HUMAN 25% IVPB 25 GM/100 ML BTL IV ×2 (14:28→20:07)
[2024-11-25] MEDS: ferumoxytoL (NON-ESRD) 510 MG in SODIUM CHLORIDE 0.9% 100 ML 234 MG IV (14:28)
--- NOTE | 2024-11-25 16:00 | ESPR_ITS ---
<Statement entered by Aston Al MD - 11/26/24 08:50> Patient has improvement than yesterday. Physical exam still significant 3+ pitting edema up to hips. Reccs by nephro and cardio are to continue albumin infusion with diuresis. Patient is to get renal and mandibular mass biopsy. I discussed with and supervised the merchandising internship physician involved in the care of this patient. Patient assessment and plan was discussed with entire medicine team, including my attending. I agree with the assessment and plan as documented by merchandising internship doctor. Patient care was discussed with my attending physician Dr. Gilberto Al, PGY-2 Documentation for date of: 11/25/24 Subjective Subjective Interval history: Patient is seen and examined at bedside No acute overnight events. Patient clinical condition improved significantly and she is alert awake and oriented but patient is having severe hearing loss Denies any other complaints Vitals are stable and patient is in A-fib with bilateral pedal edema extending up to above the knees labs showed hemoglobin 7.8, sodium 147, BUN 143, creatinine 2.5 Dr. anne recommended renal biopsy tomorrow in view of RBC in the urine Also planning to do right mandibular mass biopsy tomorrow Dr. Anne and Dr. Millan recommended albumin infusion and diuresis today Will monitor urine output and renal functions Exam Vital Signs Temp Pulse Resp BP Pulse Ox O2 Del Method 97.4 F 97 25 H 106/69 97 Room Air 11/25/24 12:00 11/25/24 14:28 11/25/24 12:00 11/25/24 14:28 11/25/24 12:00 11/25/24 12:00 Narrative Exam General: Awake. severe hearing loss noted HEENT: Normocephalic, atraumatic, mucous membranes moist. Noted swelling on right cheek, hard consistency. Heart: Irregular rate and rhythm, no murmurs. Lungs: Clear to auscultation with no wheezing or crackles. Abdomen: Soft, nondistended, nontender, positive bowel sounds. ?No guarding or rebound tenderness. Neurologic: Able to move all 4 extremities Extremities: 4+ pitting pedal edema extending to above the knees Skin: Noted ecchymotic patches on the front of the chest. Objective Labs 11/26/24 04:29 11/26/24 04:29 Labs: Laboratory Results - last 24 hr 11/24/24 11/24/24 11/25/24 13:35 17:13 03:30 WBC RBC Hgb Hct MCV MCH MCHC RDW Std Deviation Plt Count Neut % (Auto) Lymph % (Auto) Surry % (Auto) Eos % (Auto) Baso % (Auto) Neut # (Auto) Lymph # (Auto) [place] # (Auto) Eos # (Auto) Baso # (Auto) Immature Gran # (Auto) Absolute Nucleated RBC Immature Gran % Nucleated RBC % Sodium 146 H Potassium 5.5 H Chloride 110 H Carbon Dioxide 21.6 Anion Gap 14 BUN 146 H* Creatinine 2.5 H Estim Creat Clear Calc Not Performed. eGFR 19 L BUN/Creatinine Ratio 58 H Glucose 107 H Calculated Osmolality 338 H Calcium 8.5 Corrected Calcium 9.2 Phosphorus 7.0 H Magnesium 1.9 Total Bilirubin ALT Alkaline Phosphatase Total Creatine Kinase 232 H Total Protein Albumin 3.1 L Globulin Albumin/Globulin Ratio Ur Random Creatinine 179 H Ur Random Sodium 15.7 L Ur Random Potassium 43 Ur Random Chloride < 20.0 L Ur Random Urea Nitrogn 377.0 Blood Type O Positive Antibody Screen NEGATIVE Crossmatch See Detail Blood Bank Wristband ID Yes 11/25/24 04:36 WBC 6.2 RBC 2.54 L Hgb 7.8 L Hct 23.3 L MCV 92 MCH 30.7 MCHC 33.5 RDW Std Deviation 63.6 H Plt Count 229 D Neut % (Auto) 67 Lymph % (Auto) 19 Surry % (Auto) 9 Eos % (Auto) 1 Baso % (Auto) 0 Neut # (Auto) 4.2 Lymph # (Auto) 1.2 Surry # (Auto) 0.5 Eos # (Auto) 0.1 Baso # (Auto) 0.0 Immature Gran # (Auto) 0.26 H Absolute Nucleated RBC 0.14 H Immature Gran % 4 H Nucleated RBC % 2 H Sodium 147 H Potassium 5.0 D Chloride 111 H Carbon Dioxide 20.5 Anion Gap 16 BUN 143 H* Creatinine 2.5 H Estim Creat Clear Calc Not Performed. eGFR 19 L BUN/Creatinine Ratio 57 H Glucose 87 Calculated Osmolality 337 H Calcium 8.4 Corrected Calcium 9.0 Phosphorus 6.9 H Magnesium 1.8 Total Bilirubin 0.6 ALT 10 Alkaline Phosphatase 54 Total Creatine Kinase Total Protein 5.1 L Albumin 3.2 L Globulin 1.9 L Albumin/Globulin Ratio 1.7 Ur Random Creatinine Ur Random Sodium Ur Random Potassium Ur Random Chloride Ur Random Urea Nitrogn Blood Type Antibody Screen Crossmatch Blood Bank Wristband ID Quality Measures Quality Measures none Advance care planning discussed with:: patient and sibling Assessment & Plan Assessment Current Active Medications: Generic Name Dose Route Start Last Admin Trade Name Freq PRN Reason Stop Dose Admin Acetaminophen 650 mg 11/24/24 23:56 11/25/24 00:09 Acetaminophen 325 Mg Tablet PO 12/24/24 23:55 650 mg Q6HR PRN Administration pain and Fever >100.4 Bumetanide 2 mg 11/25/24 13:30 11/25/24 14:28 Bumetanide Inj 0.25 Mg/Ml Vial 4 Ml IVP 12/25/24 13:29 2 mg BID PRINCESS Administration Docusate Sodium 100 mg 11/24/24 15:47 Docusate Sod 100 Mg Capsule PO 12/24/24 15:46 QDAY PRN CONSTIPATION Protocol Piperacillin/Tazobactam/Dextrose 3.375 gm in 50 mls @ 12.5 mls/hr 11/24/24 21:00 11/25/24 08:28 Zosyn IV 12/01/24 20:59 12.5 mls/hr Q12HR PRINCESS Administration Albumin Human 25 gm in 100 mls @ 100 mls/hr 11/25/24 13:30 11/25/24 14:28 Albuminar-25 Ivpb IV 11/28/24 13:29 100 mls/hr BID PRINCESS Administration Ondansetron HCl 4 mg 11/24/24 15:47 11/25/24 13:38 Ondansetron Inj 2 Mg/Ml Inj 2 Ml IVP 12/24/24 15:46 4 mg Q6H PRN Administration NAUSEA OR VOMITING Protocol Pantoprazole Sodium 40 mg 11/25/24 09:00 11/25/24 08:19 Pantoprazole 40 Mg Tablet PO 12/25/24 08:59 40 mg QDAY PRINCESS Administration Pharmacy Consult 1 each 11/24/24 17:03 Pharmacy Renal Dose Adjustment 1 Ea XX 12/24/24 17:02 PRN PRN CONSULT Sevelamer Carbonate 800 mg 11/25/24 08:00 11/25/24 12:20 Sevelamer Carbonate 800 Mg Tablet PO 12/25/24 07:59 800 mg TIDWM PRINCESS Administration Plan A 84-year-old female with past medical history of HFpEF 50-55%, hypertension, Torres's palsy, Parkinson's, atrial fibrillation on Eliquis, recent hospitalization for dehydration and acute kidney injury presented to the hospital with chief complaints of lethargy since 2 days and swelling in the right cheek since 3 weeks and admitted in the hospital for JANEY, likely prerenal in the setting of poor oral intake and diuretics # Acute metabolic encephalopathy, resolved # Uremia # Acute kidney injury, likely prerenal - Dehydration vs cardiorenal # Anasarca - likely Right heart failure in the setting of # History of HFpEF - Brought to the hospital in view of lethargy since Friday. - Per family at the bedside, patient is on fluid restriction and is on diuretics - Patient had similar complaints 3 weeks ago for which she was admitted for JANEY and received IV fluids - Vitals at the time of admission are stable except for mildly low blood pressure 99/60 mmHg - On physical examination, patient noted to have peripheral fluid edema and appears intravascularly depleted, dry mucous membranes - Labs at the time of admission are significant for Hb 7.4, sodium 146, potassium 5.6, chloride 108, anion gap 17, BUN 148, creatinine 2.5 - Ultrasound of kidneys - Small left kidney, B/L mild renal parenchymal scarring noted. - FeNa is 0.1% - prerenal Plan - Started on albumin 25 g IV twice daily and Bumex 2 mg IV twice daily [11/25- - Strict I&O's ordered, placed Silva catheter - Consulted Dr. Anne, will appreciate her recommendations - Will avoid nephrotoxic medication and renally dose medications - Planning for renal biopsy tomorrow - Dr. Millan consulted and will appreciate his recommendations # Right mandibular mass - infection versus malignancy - Patient was noted to have a mass that is slowly growing on right cheek since 3 weeks - Denies fever, redness on the right cheek - On physical examination, noted mild tenderness and hard on palpation - Face CT showed extensive bone destruction involving the right mandible with associated soft tissue involving inside and outside of the mandible Plan - Started on Zosyn 3.375 g every 12 hourly - Will plan for biopsy tomorrow # Anemia, likely 2/2 blood loss - Hemoglobin in 10/2024 is 8.9 - At the time of presentation, hemoglobin is 7.4 - Patient is on Eliquis 2.5 Mg p.o. twice daily for atrial fibrillation - Noted bleeding manifestations in the oral cavity - 1 PRBC transfusion is done Plan -Held anticoagulation for now -Stool occult blood is ordered -will look for bleeding manifestations and transfuse as needed # Hypernatremia # Hyperkalemia, resolved - At the time of admission, sodium is 146, potassium is 5.6 -- 11/25 Na 147, K 5 - Patient received albuterol inhalation and Kayexalate in the ED Plan - Will replete/treat electrolytes as needed # ?UTI - Patient is not able to give appropriate history - Urinalysis showed 2+ proteinuria, 2+ blood, 1+ bilirubin, 182 RBC, 59 WBC, 1+ bacteria - Patient was started on Zosyn for right mandibular mass which will cover UTI # History of HFpEF - Patient is currently on diuretics and EF is 55 to 60% in 2023 - Repeat echo was ordered, EF 55-60%, RVSP 60 # History of A-fib, likely paroxysmal --- CVR - Currently in afib but rate is well controlled - Patient is on Eliquis 2.5 Mg p.o. 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 Macias and senior resident Dr. Servando Rosas, PGY1 Attending Provider Attestation/Addendum I, Jazmín Macias, DO, attest that I was physically present for the hoff portions of the service and evaluated the patient with the resident and I reviewed and discussed the case with the resident and agree with the resident's findings and plans of care as documented above Patient seen and evaluated this AM. Patient is A&Ox3 and interactive. She states she is feeling better today. However, friend at bedside states that the patient's hearing has significantly declined in the past few months. May be secondary to loop diuretics. Patient continues to have 4+ pitting edema in b/l LE that is ascending to proximal thigh. She remains on 4L/nC and denies any shortness of breath. Patient has been receiving IV abx, but facial edema/ firmness of mass remains unchanged. Will order biopsy in AM for mass. Patient has minimal urine output despite IV fluids and no improvement of renal function. Case discussed with cardiology over the phone who has discussed start of diuretics with nephrology. Patient to receive albumin and bumex 2mg IV BID. Will continue to monitor Is and Os. Plan for tunneled catheter placement in AM and renal biopsy as well. Patient is to be NPO after midnight. No acute events overnight otherwise.
--- NOTE | 2024-11-25 16:47 | PC.SS ---
SS spoke to patient's daughter, Seble. Seble states patient was residing at [facility]. She was recently discharged from our hospital last month and discharged to facility. Daughter, Seble, is the alt medical decision maker. She verbalized patient will return to [facility] once medically stable. Patient is wheelchair bound. She can stand and pivot. Patient was on 02 at facility. Prior to patient returning she will need another PT evaluation. Patient was admitted for JANEY. Alt medical decision maker: Seble, daughter, d/c plan: return to [facility] [place] transportation: gurney transport
[2024-11-25] MEDS: MELATONIN 3 MG TABLET PO (20:08)
[2024-11-26] VITALS (33 sets, daily range): BP systolic 80–128; BP diastolic 35–73; PULSE 64–100; RESP 10–28; TEMP 35.8–36.2; O2SAT 94–100
[2024-11-26 05:44] LABS: Basophils % (Auto) 0 % (0-2.5); Eosinophils # (Auto) 0.1 Thou/mm3 (0.0-0.5); Eosinophils % (Auto) 2 % (0-10); Hematocrit 22.5 % (36.0-46.0); Immature Granulocytes % (Auto) 5 % (0-0); Lymphocytes # (Auto) 1.6 Thou/mm3 (1.0-4.8); Lymphocytes % (Auto) 26 % (10-50); Mean Corpuscular HGB Conc 33.3 g/dl (31.0-37.0); Mean Corpuscular Hemoglobin 30.9 pg (25.0-35.0); Mean Corpuscular Volume 93 fL (80-100); Monocytes # (Auto) 0.5 Thou/mm3 (0.0-0.8); Monocytes % (Auto) 8 % (0-12); Neutrophils # (Auto) 3.6 Thou/mm3 (1.8-7.7); Neutrophils % (Auto) 59 % (37-80); Nucleated Red Blood Cell # 0.12 Thou/mm3 (0.00-0.00); Nucleated Red Blood Cell % 2 /100 WBC (0); Platelet Count 214 Thou/mm3 (140-440); RDW Standard Deviation 65.1 fL (36.4-46.3); Red Blood Count 2.43 Miln/mm3 (4.00-5.20); White Blood Count 6.2 Thou/mm3 (3.6-11.0)
[2024-11-26 05:46] LABS: Hemoglobin 7.5 g/dL (12.0-16.0)
[2024-11-26 06:04] LABS: INR 1.4 (0.9-1.3); Prothrombin Time 14.8 Seconds (9.0-12.2)
[2024-11-26 06:23] LABS: HIV (1&2) Antibody Rapid Non-Reactive
[2024-11-26 06:46] LABS: Alanine Aminotransferase 8 U/L (10-49); Albumin, Serum 3.5 gm/dL (3.4-4.8); Albumin/Globulin Ratio 2.2 (1.2-2.2); Alkaline Phosphatase 41 U/L (46-116); Anion Gap 15 (7-16); Aspartate Amino Transferase 29 U/L (0-34); BUN/Creatinine Ratio 50 Ratio (12-20); Bilirubin,Total 0.6 mg/dL (0.3-1.2); Calcium 8.4 mg/dL (8.3-10.6); Calcium (Corrected) 8.8 mg/dL (8.5-10.1); Carbon Dioxide 21.2 mMol/L (20.0-31.0); Chloride 111 mMol/L (98-107); Creatinine (Component) 2.9 mg/dL (0.6-1.3); Globulin 1.6 gm/dL (2.3-3.5); Glucose 95 mg/dL (74-106); Hepatitis A Antibody IgM Non Reactive (Non React); Hepatitis B Core Antibody IgM Non Reactive (Non React); Hepatitis B Surface Antigen Non Reactive (Non React); Hepatitis C Antibody Non Reactive (Non React); Magnesium 1.8 mg/dL (1.6-2.6); Osmolality,Calculated 339 (275-295); Potassium 4.6 mMol/L (3.4-5.1); Sodium 147 mMol/L (136-145); Thyroid Stimulating Hormone 2.92 uIU/mL (0.55-4.78); Total Protein 5.1 gm/dL (5.7-8.2); eGFR 16 See Note
[2024-11-26 06:48] LABS: Blood Urea Nitrogen 145 mg/dL (9-23)
--- NOTE | 2024-11-26 08:07 | XR_ITS ---
Examination: CT-guided percutaneous biopsy soft tissue right mandible mass CT facial series without intravenous contrast Date and time of procedure: November 26, 2024 10:50 AM INDICATIONS: CT facial examination November 24, 2024 extensive bone destruction involving the right body the mandible with soft tissue mass external and internal to the body the mandible Informed consent provided. A timeout was completed verifying correct patient, procedure, site and positioning. - Technique: Axial 3 mm sections were obtained for localization of the soft tissue right mandible mass Appropriate area is marked. The patient's site was prepped and draped in sterile fashion Maximal sterile barrier technique utilized, including hand hygiene Local anesthesia was obtained with 1% lidocaine. Low dose protocols were performed. One or more of the following dose reduction techniques were used; automated exposure control, adjustment of the mA and/or KV according to patient size, use of iterative reconstruction technique. Utilizing CT fluoroscopic guidance 2 core biopsies obtained of the mandible mass, one placed in culture medium and the second in preservative for cytologic analysis Patient appears in stable condition during this procedure. At completion of the procedure, the patient is in satisfactory condition. Estimated blood loss 0 cc Complete pathology culture and sensitivity report to follow. Impression: Successful CT-guided core biopsies soft tissue right mandible mass
[2024-11-26] MEDS: PANTOPRAZOLE 40 MG TABLET PO (08:26)
[2024-11-26] MEDS: SEVELAMER CARBONATE 800 MG TABLET PO (08:26)
--- NOTE | 2024-11-26 08:34 | XR_ITS ---
Ultrasound-guided needle placement right internal jugular vein Permanent tunneled dialysis catheter insertion, percutaneous Fluoroscopy AP chest, portable, November 26, 2024 0908 hours INDICATIONS: Acute renal failure need for long-term and stat dialysis Date and time of procedure: November 26, 2024 0908 hours Informed consent provided Technique: A timeout was completed verifying correct patient, procedure, site, positioning, and special equipment if applicable. The patient was placed in a dependent position appropriate for dialysis catheter placement based on the vein to be cannulated. The patient'sright neck was prepped and draped in sterile fashion. Maximum Sterile Barrier Technique used including cap, mask, sterile gown, sterile gloves, and sterile full body drape. If ultrasound technique used: sterile gel and sterile probe covers. Hand Hygiene performed using proper scrub, soap and water, or alcohol-based hand rub. 1% lidocaine was used to anesthetize the surrounding skin area The [facility] portable ultrasound upright lordotic utilized to confirm patency of the right internal jugular vein Utilizing ultrasonographic guidance successful 21-gauge needle puncture into the right internal jugular vein. Ultrasound images were recorded and stored. Vessel micropuncture was performed with 21-gauge needle. 0.18 wire guide is introduced into the vein. 0.18 wire is introduced into the vena cava under fluoroscopy. Subcutaneous tunnel formed in the upper chest. Permanent tunneled dialysis catheter placed in the subcutaneous tunnel. Dilators were introduced over the J-wire guide. Tunneled dialysis catheter is introduced through a dilator with venous sheath into the superior vena cava under fluoroscopic guidance. The catheter is sutured in place to the skin and a sterile dressing applied. Perfusion to the extremity distal to the point of catheter insertion is checked and found to be adequate Attending radiologist was present for the entire procedure Estimated blood loss2 cc. The patient tolerated the procedure well and there were no complications Impression: Successful ultrasound-guided needle placement right internal jugular vein Successful permanent tunneled dialysis catheter insertion, percutaneous Fluoroscopy 0.5 minute radiation dose 5.59 milligray 1 spot fluoroscopic chest film. AP chest performed at completion procedure demonstrates satisfactory position dialysis catheter. May use dialysis catheter.
--- NOTE | 2024-11-26 08:52 | ESPR_ITS ---
Documentation for date of: 11/26/24 Subjective Subjective Interval history: 11/25/2024: Patient examined at bedside today. No acute overnight events. Patient's sodium 147, potassium 5, BUN/creatinine 143 and 2.5 respectively, blood glucose 87, white count 6.2, hemoglobin 7.8, phosphorus 6.9, magnesium 1.8, urine sodium 15, urine urea 377, urine creatinine 179. Patient's renal labs did not improve, and patient's creatine kinase was elevated as well. Due to patient's longstanding history of hematuria, patient may benefit from renal biopsy for diagnosis of possible nephrotic syndrome. Patient cannot receive fluids at this time or diuresis due to kidney injury. Patient is agreeable with procedure. 11/26/2024: Patient examined at bedside today. No acute overnight events. Urine output 225 mL over past 24 hours, BUN/creatinine 145 and 2.9 respectively, potassium 4.6, white count 6.2, hemoglobin 7.5, phosphorus 7, magnesium 1.8, calcium 8.8, HIV negative, hepatitis panel negative, hepatitis C negative. Patient is agreeable to getting biopsy of the right jaw, kidney and to put dialysis catheter in today. She will get her first dialysis session today. No other complaints at this time. Exam Vital Signs Temp Pulse Resp BP Pulse Ox O2 Del Method O2 Flow Rate 96.9 F 84 15 94/64 97 Nasal Cannula 1 11/26/24 08:00 11/26/24 08:00 11/26/24 08:00 11/26/24 08:00 11/26/24 08:00 11/26/24 08:00 11/26/24 08:00 Narrative Exam General: AAOx2, appears to be bedbound, smiling, understands some Montenegrin, able to respond to questions HEENT: Dry mucous membranes, poor dentition, some dried blood around mandibular area, right mandibular swelling that could be indicative of a mass, conjunctiva clear, EOMI, PERRLA, Cardiovascular: Irregularly irregular, radial pulses +2 bilaterally, S1, S2, ejection systolic murmur auscultated Pulmonary: Minimal crackles heard, no cough GI: Some possible rebound tenderness on left upper quadrant, bowel sounds present Extremities: Anasarca +3 bilaterally up to thigh Skin: Numerous areas of purpura seen in upper and lower extremities, rash that appears to be flat and erythematous inferior to sternum appears to be patch like Neuro: AAOx2, limited neurologic exam Psych: Able to slightly cooperate Objective Labs 11/28/24 05:15 11/28/24 05:15 Labs: Laboratory Results - last 24 hr 11/26/24 04:29 WBC 6.2 RBC 2.43 L Hgb 7.5 L Hct 22.5 L MCV 93 MCH 30.9 MCHC 33.3 RDW Std Deviation 65.1 H Plt Count 214 Neut % (Auto) 59 Lymph % (Auto) 26 [place] % (Auto) 8 Eos % (Auto) 2 Baso % (Auto) 0 Neut # (Auto) 3.6 Lymph # (Auto) 1.6 [place] # (Auto) 0.5 Eos # (Auto) 0.1 Baso # (Auto) 0.0 Immature Gran # (Auto) 0.30 H Absolute Nucleated RBC 0.12 H Immature Gran % 5 H Nucleated RBC % 2 H PT 14.8 H INR 1.4 H APTT 39.0 H Sodium 147 H Potassium 4.6 Chloride 111 H Carbon Dioxide 21.2 Anion Gap 15 BUN 145 H* Creatinine 2.9 H Estim Creat Clear Calc Not Performed. eGFR 16 L BUN/Creatinine Ratio 50 H Glucose 95 Calculated Osmolality 339 H Calcium 8.4 Corrected Calcium 8.8 Phosphorus 7.0 H Magnesium 1.8 Total Bilirubin 0.6 AST 29 ALT 8 L Alkaline Phosphatase 41 L D Total Protein 5.1 L Albumin 3.5 Globulin 1.6 L Albumin/Globulin Ratio 2.2 TSH 2.92 Hepatitis A IgM Ab Non Reactive Hep Bs Antigen Non Reactive Hep B Core IgM Ab Non Reactive Hepatitis C Antibody Non Reactive HIV 1&2 Antibody Rapid Non-Reactive Quality Measures Quality Measures none Advance care planning discussed with:: patient Assessment & Plan Assessment Current Active Medications: Generic Name Dose Route Start Last Admin Trade Name Freq PRN Reason Stop Dose Admin Acetaminophen 650 mg 11/24/24 23:56 11/25/24 23:32 Acetaminophen 325 Mg Tablet PO 12/24/24 23:55 650 mg Q6HR PRN Administration pain and Fever >100.4 Bumetanide 2 mg 11/25/24 13:30 11/26/24 08:37 Bumetanide Inj 0.25 Mg/Ml Vial 4 Ml IVP 12/25/24 13:29 Not Given BID PRINCESS Docusate Sodium 100 mg 11/24/24 15:47 Docusate Sod 100 Mg Capsule PO 12/24/24 15:46 QDAY PRN CONSTIPATION Protocol Epoetin Jorge 10,000 unit 11/26/24 10:00 Epoetin Jorge-Epbx Inj 10,000 Unit/Ml Vial (Non-Esrd) SC 11/26/24 10:01 X1 ONE Piperacillin/Tazobactam/Dextrose 3.375 gm in 50 mls @ 12.5 mls/hr 11/24/24 21:00 11/26/24 00:07 Zosyn IV 12/01/24 20:59 Infused Q12HR PRINCESS Infusion Albumin Human 25 gm in 100 mls @ 100 mls/hr 11/25/24 13:30 11/25/24 21:07 Albuminar-25 Ivpb IV 11/28/24 13:29 Infused BID PRINCESS Infusion Melatonin 3 mg 11/25/24 21:00 11/25/24 20:08 Melatonin 3 Mg Tablet PO 12/25/24 20:59 3 mg HS PRINCESS Administration Ondansetron HCl 4 mg 11/24/24 15:47 11/25/24 13:38 Ondansetron Inj 2 Mg/Ml Inj 2 Ml IVP 12/24/24 15:46 4 mg Q6H PRN Administration NAUSEA OR VOMITING Protocol Pantoprazole Sodium 40 mg 11/25/24 09:00 11/26/24 08:26 Pantoprazole 40 Mg Tablet PO 12/25/24 08:59 40 mg QDAY PRINCESS Administration Pharmacy Consult 1 each 11/24/24 17:03 Pharmacy Renal Dose Adjustment 1 Ea XX 12/24/24 17:02 PRN PRN CONSULT Sevelamer Carbonate 800 mg 11/25/24 08:00 11/26/24 08:26 Sevelamer Carbonate 800 Mg Tablet PO 12/25/24 07:59 800 mg TIDWM PRINCESS Administration Plan Assessment Cheri is a 84-year-old female with past medical history of HFpEF (EF:50-55%), hypertension, Torres's palsy, Parkinson's, CKD, Afib (on Eliquis) who is currently admitted for JANEY and uremia. #Acute kidney injury on CKD stage IIIb #Anasarca #Hyperkalemia #Uremia, worsening #Prerenal azotemia #Hyperphosphatemia #? Cardiorenal syndrome #Oliguria DDx: Prerenal versus ATN versus obstructive Hypovolemia is high on differential at this point, BUN/creatinine ratio ~60 Patient endorses poor oral intake Patient appears to be intravascularly volume depleted, this could have been due to diuresis in combination with oral intake, although patient appears to have anasarca Patient could be having platelet dysfunction with uremia as patient has numerous areas of purpura, however patient is taking Eliquis High suspicion for JANEY causing uremia, however will rule out other factors including toxic ingestion, acidosis and other electrolyte abnormalities and infection Unsure if pt has had stones before Pt has vivas now Renal US: Small left kidney Bilateral renal parenchymal scar formation mild Bilateral renal cortical thinning No hydronephrosis 11/25/2024: FEUrea: 3.7, indicating prerenal ideology Urine sodium 15 Patient is unable to receive fluids due to fluid overload at this time, and cannot receive diuresis due to JANEY Patient continues to have uremia, creatinine 2.5, BUN 143 Patient went will likely need to be on dialysis, however we need to determine the ideology of the JANEY to see if patient will need longstanding dialysis Therefore we will do a renal biopsy as this is the patient's second time for having these episodes of uremia Urine output seems only to be 100 cc past 24 hours Patient could have underlying nephritic syndrome or ATN Patient could have MPGN, lupus nephritis, or other nephritic syndromes, however unlikely to present at this age, however patient could have had this longstanding as well, will further workup with additional testing 11/26/2024: Patient continues to have pitting edema +3, despite diuresis with Bumex and albumin Patient will get biopsy today to determine ideology of kidney disease HIV, hepatitis panel and hepatitis C negative BUN and creatinine 145 and 2.9 respectively, continues to worsen, patient will need dialysis at this point Patient can have type I cardiorenal syndrome, type III cardiorenal syndrome, or type IV cardiorenal syndrome Patient does have underlying chronic kidney disease, however has had JANEY and acute heart failure in both settings Unsure if which 1 came first, however patient continues to have oliguria and pitting edema in addition to prerenal azotemia and low urine sodium With diuresis and albumin not improving patient's condition, this could indicate patient having type III cardiorenal syndrome Plan: ? Vivas ? Strict DORIS's ? Avoid nephrotoxic agents ? Renally dose medicines ? Trend CMP and lytes ? CT-guided renal biopsy today ? IR dialysis catheter today and dialysis after ? Continue with Bumex 2 g IV and albumin ? Follow-up complement C3, C4, TIP, and ANCA #UTI Patient may be colonized at this point, however shows WBCs, shows bacteria shows leukocyte esterase Previous cultures are Proteus and Klebsiella that do appear to be mainly pansensitive Plan: ? Continue with IV Zosyn ? Follow-up blood and urine cultures #Hematuria DDx: Nephritic syndrome, IgA nephropathy or bladder malignancy Patient could also have rhabdo as well as patient has RBCs +2 blood and 183 RBCs Blood seen in previous Urinalyses Patient may have underlying nephritic syndrome which is causing patient's kidney problems at this point Due to chronicity of hematuria, patient will benefit from renal biopsy Plan: ? Renal biopsy today ? Consider further imaging and urology consult #Normocytic anemia Likely anemia of chronic disease Hgb 7.5 S/p Epogen and Ferumoxytol x1 Plan: ? Trend with CBC #Facial mass, R side #Hypertension #Hyperlipidemia #A-fib #Torres's palsy #HFpEF Above managed by primary hospitalist team Patient seen and care discussed with my attending physician, Dr. Omid Washington, PGY-1 Attending Provider Attestation/Addendum Patient seen and examined with resident physician Dr. Gutierrez. Note reviewed, agree with findings and recommendations. Patient presented to my office with weakness, not feeling well in the right jaw lump. Workup showed that she is in the acute kidney injury. Admitted for further evaluation. Cannot give IV fluids as patient clinically looks rather fluid overloaded. Gave 250 cc fluids. If no improvement-will plan for dialysis in AM. 11/25/2024 patient's urinary output still remains low. Spoke to her hose inspector and patcher Dr. Ksenia Reynolds-patient seems to be in cardiorenal syndrome. Decided to proceed with Bumex and albumin over the weekend prior to initiation of dialysis, unless patient's albumin remains very high. Clinically she is more alert and awake. Very hard of hearing-acute and not sure exactly what is going on. Patient also noted to have significant hematuria for the last Few months. In the setting of renal failure decided to proceed with kidney biopsy in AM. Plan of care discussed with primary team. Added iron, Procrit for her anemia. Urine sodium less than 15 in the setting of significant fluid overload consistent with prerenal azotemia//cardiorenal syndrome 11/26/2024 patient consented for dialysis catheter and dialysis. Patient currently seen on dialysis. Tolerating dialysis without any problems. Hemodialysis for 2hours, qb 200, 2K, ultrafiltration 1 L, Epogen 6000, no heparin ordered. Will be very slow in dialysis to avoid dialysis disequilibrium. . Plan of care discussed with the dialysis nurse. Please see dialysis flowsheet for further details. Mandibular biopsy scheduled for today. Patient will get kidney biopsy on Friday
[2024-11-26] MEDS: fentaNYL CIT INJ 50 mCg/ML AMP 2ML 25 MCG IVP ×2 (10:17→11:06)
[2024-11-26] MEDS: HEPARIN SOD INJ 1000 UNIT/ML VIAL 3800 UNIT INDWELLCAT (10:30)
--- NOTE | 2024-11-26 10:57 | PD.RESPRO ---
Documentation for date of: 11/26/24 Subjective Subjective Interval history: Patient is a 84 year old female with past medical history of hypertension, Atrial fibrillation on eliquis, CHF HpEF 55-60%, Parkinson's and hypothyroidism. Patient presented to the emergency with a worsneing JANEY, sent by Sales And Events Coordinator, Dr. Anne. Patient is hard of hearing and overall poor historian. Patient was alert and oriented during physical exam but unable to explain past medical history. Per chart review malick presented with worsening dehydration and worsening cheek swelling. Patinet also noted to have lower extremity edema. Concern for acute encephalopathy on admission and CT obtained. 11/26/2024: Pateint examined at bedside, malick denied any symptoms. No change in peripheral edema. Minimal urine output based on patient's weight despite Bumex and Lasix. Scheduled renal biopsy and possible CT guided right mandible biopsy. IR dialysis catheter as no improvement in kidney function. Continue Bumex and Albumin. Nephrology on board and plan to start dilaysis today. 11/25/2024: 1100/100/net +1000 Exam Vital Signs Temp Pulse Resp BP Pulse Ox O2 Del Method O2 Flow Rate 96.9 F 72 19 118/57 L 100 Nasal Cannula 4 11/26/24 08:00 11/26/24 10:27 11/26/24 10:27 11/26/24 10:27 11/26/24 10:27 11/26/24 10:27 11/26/24 10:27 Narrative Exam General Appearance: Alert & Oriented X3, well-nourished female who is lying in bed in no acute distress HEENT: Skull symmetrical and atraumatic. Conjunctivae pale and moist. Pupils equal, round, reactive to light and accommodation (PERRL). External ear without lesion or discharge. Straight, nares patient, mucosa pink, no discharge. Cardio: Normal Rate and Rhythm with S1 and S2 heart sounds. Possible murmur noted on mitral region.. No bruits on carotid auscultation. Peripheral edema, 2+ Lungs: Symmetric with good expansion. Chest and back non-tender. Breath sounds vesicular without crackles, wheezing or rhonchi Abdomen: Non-tender, Non-distended, Normal Reactive Bowel Sounds Neuro: Alert, cooperative, oriented to person, place, and time. Speech clear. CN grossly intact. Upper motor strength 5/5 and Lower motor strength 5/5. Sensation intact. Objective Labs 11/26/24 04:29 11/26/24 04:29 Labs: Laboratory Results - last 24 hr 11/26/24 04:29 WBC 6.2 RBC 2.43 L Hgb 7.5 L Hct 22.5 L MCV 93 MCH 30.9 MCHC 33.3 RDW Std Deviation 65.1 H Plt Count 214 Neut % (Auto) 59 Lymph % (Auto) 26 [place] % (Auto) 8 Eos % (Auto) 2 Baso % (Auto) 0 Neut # (Auto) 3.6 Lymph # (Auto) 1.6 [place] # (Auto) 0.5 Eos # (Auto) 0.1 Baso # (Auto) 0.0 Immature Gran # (Auto) 0.30 H Absolute Nucleated RBC 0.12 H Immature Gran % 5 H Nucleated RBC % 2 H PT 14.8 H INR 1.4 H APTT 39.0 H Sodium 147 H Potassium 4.6 Chloride 111 H Carbon Dioxide 21.2 Anion Gap 15 BUN 145 H* Creatinine 2.9 H Estim Creat Clear Calc Not Performed. eGFR 16 L BUN/Creatinine Ratio 50 H Glucose 95 Calculated Osmolality 339 H Calcium 8.4 Corrected Calcium 8.8 Phosphorus 7.0 H Magnesium 1.8 Total Bilirubin 0.6 AST 29 ALT 8 L Alkaline Phosphatase 41 L D Total Protein 5.1 L Albumin 3.5 Globulin 1.6 L Albumin/Globulin Ratio 2.2 TSH 2.92 Hepatitis A IgM Ab Non Reactive Hep Bs Antigen Non Reactive Hep B Core IgM Ab Non Reactive Hepatitis C Antibody Non Reactive HIV 1&2 Antibody Rapid Non-Reactive Quality Measures Quality Measures none Advance care planning discussed with:: child Assessment & Plan Assessment Current Active Medications: Generic Name Dose Route Start Last Admin Trade Name Freq PRN Reason Stop Dose Admin Acetaminophen 650 mg 11/24/24 23:56 11/25/24 23:32 Acetaminophen 325 Mg Tablet PO 12/24/24 23:55 650 mg Q6HR PRN Administration pain and Fever >100.4 Bumetanide 2 mg 11/25/24 13:30 11/26/24 08:37 Bumetanide Inj 0.25 Mg/Ml Vial 4 Ml IVP 12/25/24 13:29 Not Given BID PRINCESS Docusate Sodium 100 mg 11/24/24 15:47 Docusate Sod 100 Mg Capsule PO 12/24/24 15:46 QDAY PRN CONSTIPATION Protocol Piperacillin/Tazobactam/Dextrose 3.375 gm in 50 mls @ 12.5 mls/hr 11/24/24 21:00 11/26/24 08:57 Zosyn IV 12/01/24 20:59 Not Given Q12HR PRINCESS Albumin Human 25 gm in 100 mls @ 100 mls/hr 11/25/24 13:30 11/26/24 08:57 Albuminar-25 Ivpb IV 11/28/24 13:29 Not Given BID PRINCESS Melatonin 3 mg 11/25/24 21:00 11/25/24 20:08 Melatonin 3 Mg Tablet PO 12/25/24 20:59 3 mg HS PRINCESS Administration Ondansetron HCl 4 mg 11/24/24 15:47 11/25/24 13:38 Ondansetron Inj 2 Mg/Ml Inj 2 Ml IVP 12/24/24 15:46 4 mg Q6H PRN Administration NAUSEA OR VOMITING Protocol Pantoprazole Sodium 40 mg 11/25/24 09:00 11/26/24 08:26 Pantoprazole 40 Mg Tablet PO 12/25/24 08:59 40 mg QDAY PRINCESS Administration Pharmacy Consult 1 each 11/24/24 17:03 Pharmacy Renal Dose Adjustment 1 Ea XX 12/24/24 17:02 PRN PRN CONSULT Sevelamer Carbonate 800 mg 11/25/24 08:00 11/26/24 08:26 Sevelamer Carbonate 800 Mg Tablet PO 12/25/24 07:59 800 mg TIDWM PRINCESS Administration Plan Patient is a 84 year old female with past medical history of hypertension, Atrial fibrillation on eliquis, CHF HpEF 55-60%, Parkinson's and hypothyroidism. Patient presented to the emergency with a [facility] JANEY, sent by Sales And Events Coordinator, Dr. Anne. Patient is hard of hearing and overall poor historian. Patient was alert and oriented during physical exam but unable to explain past medical history. Per chart review patinet presented with worsening dehydration and worsening cheek swelling. Patinet also noted to have lower extremity edema. Concern for acute encephalopathy on admission and CT obtained. #Acute on chronic Diastolic CHF exacerbation - HFpEF with EF of 55-60% #Grade 1 diastolic dysfunction #PAH RSVP >60 Patient presented with worsening peripheral edema with BNP 460 and Chest x-ray some vascular congestion on right lung field. 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 11/26/2024 Decreased urine output based on weight, continue additional day of bumex and albumin. INs 780/Out 225/ Net 555 Echo (11/24/2024): Normal left ventricular size and function. Estimated EF at 55-60 %. Grade 1 diastolic dysfunction. Mildly dilated RV with normal RV systolic function. Moderate PAH with an RVSP > 60 mm hg. Moderate TR. Mild MR, Mild MAC. Moderate AV sclerosis without stenosis. No Pericardial effusion. Cxr: noted for left base pneumonia. MIld vascular congestion noted. BNP 460 Lipid Panel 81, Cholesterol 127, LDL 56, HDl 55 TSH (11/26/2024): 2.92 A1c (02/22/2024) 5.0 Plan -Bumex 2 mg IV BID & Albumin 25 mg BID, continue for additional day -Diuresis, monitor blood pressure -Consider Fluid Restriction and Na restriction -Holding off GDMT, including Coreg given soft blood pressure and diuresis -K>4 and Mg >2 - Nephrology on board and plan to start dilaysis today. #Acute Kidney Failure #JANEY on CKD IIIb #Hypernatremia #Hyperkalemia, resolved. Patient has a past medical history of CKD with best Cr baseline of 1.3, GFR of 41, and BUN 77 (10/29/2024). Presented with Cr of 2.5 thus Cr >0.3 change and likely JANEY. BUN/CR ratio of 59 indicating pre-renal injury. FeNa noted to be 0.1% thus indicating pre-renal, consider cardio-renal vs worsening CKD vs monitor for signs of intrinsic failure Renal US (11/24/2024): Mild bilateral renal parenchymal scar formation, small left kidney Hep Panel Negative Plan -Dialysis catheter placed, plan for dialysis by nephrology -Pending renal biopsy -TIP, and HIV -pending -Renally dose medication -avoid nephrotoxins #History of Atrial Fibrillation Plan -Holding Eliquis 2.5 mg BID given increased risk of bleeding and holding Carvedilol Day 2 of holding off Eliquis. #Hypertension Currently holding home medication given soft blood pressure. Plan -Hold Amlodipine, Hydralazine 25 mg PO TID, and Lisinopril 20 mg qday -Patient would benefit form medication reconciliation as BP has been within normal range with only two intances of systolic BP of 170s. #Hematuria: UA noted to have protein 2+, urine Blood 2+, and 182 H RBCs, given elevated protein, nephro concern for Nephrotic vs malignancy. CK 232; UA Protien 2+, Blood 2+, Esterase +, RBC 182, WBC 59, Squamous 8 Plan -NPO after midnight -Renal biopsy #UTI Patinet on arrival presented with acute encephlopathy likely in the setting UTI as UA noted to be hazy, esterase positive, and WBC positive vs less likely secondary to pneumonia as no wheezing or rhnochi noted on physical, mild crackles noted during physical exam. NO pyrexia reported. 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 Hope. - Zosyn 3.375 g every 12 hourly -Manidbular Wound Tissue: pending -Coagulation study for mandible and renal biopsy #Normocytic Anemia Over the past several months, patient Hgb continues to drop likley in the setting of iron deficiency vs hematuria vs anemia of chronic disease vs anemia of CKD. Plan -Pending occult stool -Consider Iron panel -Consider Lead levels in the setting of bleeding gums (bleeding gums likely in the setting of mandible mass and less likely to lead) -Consider resuming iron tablets form home medicaton list -EPO via Nephro -s/p 1 transfusion #Hypothyroidism Past medical history of hypothyrodism, on Levothyroxine Plan -TSH AM -Consider resuming medication #Acute Encephalopathy, resolved. likely metabolic in nature given uremia vs infectious given UTI vs Pneumonia vs stroke #History of Torres's Palsy #History of Parkinson's Disease Health Maintenance: Disp: Pt is currently admitted to floors for further management of JANEY on CKD, Mass, and CHF exacerbation, cardiology consulted. FEN: NPO, Plan for multiple biopsy (Renal Diet) DVT: Holding GI: Protonix Code: DNR - The patient's plan was discussed with attending Dr. Yana Conway, MD PGY1 Internal Medicine Attending Provider Attestation/Addendum I have personally seen and examined the patient separately on the above date of service and discussed the plan of care with the resident. I reviewed the resident Dr. Ashlie Conway consultation progress note and agree with the resident findings and plan in the note above and have also edited the documentation to reflect my findings and plan. Ra Millan M.D. Interventional Cardiology
--- NOTE | 2024-11-26 11:08 | PC.SS ---
Addendum entered by FRANCIS Rinaldi 11/26/24 16:08: Rounding note: patient to get dialysis cath today. Patient will be a new dialysis patient needing to be established per medical team. Addendum entered by FRANCIS Rinaldi 11/26/24 11:12: SS update: per Daphne at [facility], the patient will not require insurance authorization before returning to facility. Original Note: SS follow up: CITY EDITOR met with patient's family at bed side. They are requesting an advance directive that was provided to them and explained how to be completed. Family confirms the d/c plan is to return to [facility].
[2024-11-26] MEDS: LIDOCAINE INJ PF 1% 5 ML VIAL 7 ML INFL (11:18)
[2024-11-26] MEDS: ALBUMIN HUMAN 25% IVPB 25 GM/100 ML BTL IV ×3 (14:55→20:09)
--- NOTE | 2024-11-26 16:05 | ESPR_ITS ---
<Statement entered by Aston Al MD - 11/27/24 14:16> I discussed with and supervised the internal audit director physician involved in the care of this patient. Patient assessment and plan was discussed with entire medicine team, including my attending. I agree with the assessment and plan as documented by internal audit director doctor. Patient care was discussed with my attending physician Dr. Zak Al, PGY-2 Documentation for date of: 11/26/24 Subjective Subjective Interval history: Patient is seen and examined with the daughter at bedside No acute overnight events. Patient is lying comfortably on the bed and is able to respond to questions appropriately Vitals are stable. On physical examination, noted 4+ pitting pedal edema extending to the knees and in the dependent areas including sacral, upper thigh and genitalia. Labs showed hemoglobin 7.5, sodium 147, chloride 111, BUN 145, creatinine 2.9 As patient's BUN and creatinine are uptrending and not able to make enough urine, Dr Anne suggested hemodialysis and removal of fluid Patient underwent permanent tunneled dialysis catheter placement and biopsy of right mandibular mass Renal biopsy could not be done today as patient took aspirin on 11/24/2024 Held Bumex for now and albumin will be given during dialysis sessions Will continue to monitor renal functions Exam Vital Signs Temp Pulse Resp BP Pulse Ox O2 Del Method O2 Flow Rate 96.4 F L 72 17 85/40 L 97 Nasal Cannula 2 11/26/24 14:35 11/26/24 16:01 11/26/24 14:35 11/26/24 16:01 11/26/24 14:35 11/26/24 12:00 11/26/24 14:35 Narrative Exam General: Awake. severe hearing loss noted HEENT: Normocephalic, atraumatic, mucous membranes moist. Noted swelling on right cheek, hard consistency. Heart: Irregular rate and rhythm, no murmurs. Lungs: Clear to auscultation with no wheezing or crackles. Abdomen: Soft, nondistended, nontender, positive bowel sounds. ?No guarding or rebound tenderness. Neurologic: Able to move all 4 extremities Extremities: 4+ pitting pedal edema extending to the knees and also noted edema in the dependent area including sacral, upper thighs and lower abdomen including genitalia Skin: Noted ecchymotic patches on the front of the chest. Objective Labs 11/28/24 21:49 11/28/24 21:49 Labs: Laboratory Results - last 24 hr 11/26/24 04:29 WBC 6.2 RBC 2.43 L Hgb 7.5 L Hct 22.5 L MCV 93 MCH 30.9 MCHC 33.3 RDW Std Deviation 65.1 H Plt Count 214 Neut % (Auto) 59 Lymph % (Auto) 26 [place] % (Auto) 8 Eos % (Auto) 2 Baso % (Auto) 0 Neut # (Auto) 3.6 Lymph # (Auto) 1.6 [place] # (Auto) 0.5 Eos # (Auto) 0.1 Baso # (Auto) 0.0 Immature Gran # (Auto) 0.30 H Absolute Nucleated RBC 0.12 H Immature Gran % 5 H Nucleated RBC % 2 H PT 14.8 H INR 1.4 H APTT 39.0 H Sodium 147 H Potassium 4.6 Chloride 111 H Carbon Dioxide 21.2 Anion Gap 15 BUN 145 H* Creatinine 2.9 H Estim Creat Clear Calc Not Performed. eGFR 16 L BUN/Creatinine Ratio 50 H Glucose 95 Calculated Osmolality 339 H Calcium 8.4 Corrected Calcium 8.8 Phosphorus 7.0 H Magnesium 1.8 Total Bilirubin 0.6 AST 29 ALT 8 L Alkaline Phosphatase 41 L D Total Protein 5.1 L Albumin 3.5 Globulin 1.6 L Albumin/Globulin Ratio 2.2 TSH 2.92 Hepatitis A IgM Ab Non Reactive Hep Bs Antigen Non Reactive Hep B Core IgM Ab Non Reactive Hepatitis C Antibody Non Reactive HIV 1&2 Antibody Rapid Non-Reactive Quality Measures Quality Measures none Advance care planning discussed with:: patient and child Assessment & Plan Assessment Current Active Medications: Generic Name Dose Route Start Last Admin Trade Name Freq PRN Reason Stop Dose Admin Acetaminophen 650 mg 11/24/24 23:56 11/25/24 23:32 Acetaminophen 325 Mg Tablet PO 12/24/24 23:55 650 mg Q6HR PRN Administration pain and Fever >100.4 Bumetanide 2 mg 11/25/24 13:30 11/26/24 08:37 Bumetanide Inj 0.25 Mg/Ml Vial 4 Ml IVP 12/25/24 13:29 Not Given BID PRINCESS Docusate Sodium 100 mg 11/24/24 15:47 Docusate Sod 100 Mg Capsule PO 12/24/24 15:46 QDAY PRN CONSTIPATION Protocol Piperacillin/Tazobactam/Dextrose 3.375 gm in 50 mls @ 12.5 mls/hr 11/24/24 21:00 11/26/24 08:57 Zosyn IV 12/01/24 20:59 Not Given Q12HR PRINCESS Albumin Human 25 gm in 100 mls @ 100 mls/hr 11/25/24 13:30 11/26/24 08:57 Albuminar-25 Ivpb IV 11/28/24 13:29 Not Given BID PRINCESS Albumin Human 25 gm in 100 mls @ 100 mls/hr 11/26/24 13:00 11/26/24 15:36 Albuminar-25 Ivpb IV 11/27/24 12:59 100 mls/hr PRN PRN Administration DIALYSIS Melatonin 3 mg 11/25/24 21:00 11/25/24 20:08 Melatonin 3 Mg Tablet PO 12/25/24 20:59 3 mg HS PRINCESS Administration Ondansetron HCl 4 mg 11/24/24 15:47 11/25/24 13:38 Ondansetron Inj 2 Mg/Ml Inj 2 Ml IVP 12/24/24 15:46 4 mg Q6H PRN Administration NAUSEA OR VOMITING Protocol Pantoprazole Sodium 40 mg 11/25/24 09:00 11/26/24 08:26 Pantoprazole 40 Mg Tablet PO 12/25/24 08:59 40 mg QDAY PRINCESS Administration Pharmacy Consult 1 each 11/24/24 17:03 Pharmacy Renal Dose Adjustment 1 Ea XX 12/24/24 17:02 PRN PRN CONSULT Sevelamer Carbonate 800 mg 11/25/24 08:00 11/26/24 13:46 Sevelamer Carbonate 800 Mg Tablet PO 12/25/24 07:59 Not Given TIDWM PRINCESS Plan A 84-year-old female with past medical history of HFpEF 50-55%, hypertension, Torres's palsy, Parkinson's, atrial fibrillation on Eliquis, recent hospitalization for dehydration and acute kidney injury presented to the hospital with chief complaints of lethargy since 2 days and swelling in the right cheek since 3 weeks and admitted in the hospital for JANEY, likely prerenal in the setting of poor oral intake and diuretics # Acute metabolic encephalopathy, resolved # Uremia # Acute kidney injury, likely prerenal - Dehydration vs cardiorenal # Anasarca - likely Right heart failure in the setting of # History of HFpEF and elevated RVSP, mod PAH - Brought to the hospital in view of lethargy since Friday. - Per family at the bedside, patient is on fluid restriction and is on diuretics - Patient had similar complaints 3 weeks ago for which she was admitted for JANEY and received IV fluids - Vitals at the time of admission are stable except for mildly low blood pressure 99/60 mmHg - On physical examination, patient noted to have peripheral fluid edema and appears intravascularly depleted, dry mucous membranes - Labs at the time of admission are significant for Hb 7.4, sodium 146, potassium 5.6, chloride 108, anion gap 17, BUN 148, creatinine 2.5 - Ultrasound of kidneys - Small left kidney, B/L mild renal parenchymal scarring noted. - FeNa is 0.1% - prerenal Plan - Started on albumin 25 g IV twice daily and Bumex 2 mg IV twice daily [11/25-, Held as of 11/26 - Strict I&O's ordered, placed Silva catheter - Consulted Dr. Anne, recommended hemodialysis today as patient is not making enough urine and BUN, creatinine are uptrending - Placed permanent tunneled dialysis catheter today - Will avoid nephrotoxic medication and renally dose medications - Dr. Millan consulted and will appreciate his recommendations - Autoimmune panel and renal biopsy is ordered in view of hematuria since 2018 # Right mandibular mass - infection versus malignancy - Patient was noted to have a mass that is slowly growing on right cheek since 3 weeks - Denies fever, redness on the right cheek - On physical examination, noted mild tenderness and hard on palpation - Face CT showed extensive bone destruction involving the right mandible with associated soft tissue involving inside and outside of the mandible Plan - Started on Zosyn 3.375 g every 12 hourly - Underwent biopsy today, pending results # Anemia, likely 2/2 blood loss - Hemoglobin in 10/2024 is 8.9 - At the time of presentation, hemoglobin is 7.4 - Patient is on Eliquis 2.5 Mg p.o. twice daily for atrial fibrillation - Noted bleeding manifestations in the oral cavity - 1 PRBC transfusion is done Plan -Held anticoagulation for now -Stool occult blood is ordered -will look for bleeding manifestations and transfuse as needed # Hypernatremia # Hyperkalemia, resolved - At the time of admission, sodium is 146, potassium is 5.6 -- 6/13 Na 147, K 4.6 - Patient received albuterol inhalation and Kayexalate in the ED Plan - Will replete/treat electrolytes as needed # ?UTI - Patient is not able to give appropriate history - Urinalysis showed 2+ proteinuria, 2+ blood, 1+ bilirubin, 182 RBC, 59 WBC, 1+ bacteria - Patient was started on Zosyn for right mandibular mass which will cover UTI # History of HFpEF - Patient is currently on diuretics and EF is 55 to 60% in 2023 - Repeat echo was ordered, EF 55-60%, RVSP 60 # History of A-fib, likely paroxysmal --- CVR - Currently in afib but rate is well controlled - Patient is on Eliquis 2.5 Mg p.o. twice daily - Will hold Eliquis for now in view of pending renal biopsy # Torres's palsy # Parkinson's # Hypertension - Blood pressure is within normal limits since the hospital stay - Will monitor blood pressures and treat accordingly - Parkinson's and Torres's palsy appears to be chronic conditions and stable Hospital Maintenance: Dispo: Tele DVT ppx: SCD GI ppx: protonix Diet: Renal IV lines: Peripheral Code status: DNR Patient plan of care was discussed with the attending physician, Dr. Crespo and senior resident Dr. Servando Rosas, PGY1 Attending Provider Attestation/Addendum I attest that I was physically present for the evaluation, physical examination, lab and imaging review of the patient with the residents. I discussed the case with the residents and agree with the findings and plans of care as documented above. Wilber Crespo MD
[2024-11-26] MEDS: EPOETIN ALFA-EPBX INJ 10,000 UNIT/ML VIAL (NON-ESRD) 10000 UNIT SC (16:54)
--- NOTE | 2024-11-26 17:33 | PC.NURSE ---
1st dialysis completed for 2 hrs. Unable to remove fluid due to low BP. Albumin 25gm iv x2 given during hd for low bp support. BP improved the last 15 mins of HD. Post tx VS: BP 106/56, HR 87, Temp 96.4. Resp even and unlabored, sating at 98-99% on O2 at 2L/min via nc. Report given to Eri MUSTAFA.
[2024-11-26] MEDS: TUBERCULIN PPD INJ 5 UNIT/0.1 ML DOSE ID (18:54)
[2024-11-26] MEDS: BUMETANIDE INJ 0.25 MG/ML VIAL 4 ML 2 MG IVP (20:08)
[2024-11-26] MEDS: MELATONIN 3 MG TABLET PO (20:13)
[2024-11-26] MEDS: PIPER/TAZO 3.375 GM PREMIX 3.375 GM/50 ML BAG IV (21:40)
[2024-11-27] VITALS (23 sets, daily range): BP systolic 96–164; BP diastolic 40–87; PULSE 63–124; RESP 14–25; TEMP 36.1–36.8; O2SAT 82–100
[2024-11-27 06:23] LABS: Basophils % (Auto) 0 % (0-2.5); Eosinophils # (Auto) 0.1 Thou/mm3 (0.0-0.5); Eosinophils % (Auto) 1 % (0-10); Hematocrit 22.6 % (36.0-46.0); Immature Granulocytes % (Auto) 5 % (0-0); Immature Granulocytes Auto 0.28 Thou/mm3 (0.00-0.00); Lymphocytes # (Auto) 1.4 Thou/mm3 (1.0-4.8); Lymphocytes % (Auto) 24 % (10-50); Mean Corpuscular HGB Conc 33.6 g/dl (31.0-37.0); Mean Corpuscular Hemoglobin 32.1 pg (25.0-35.0); Mean Corpuscular Volume 95 fL (80-100); Monocytes # (Auto) 0.5 Thou/mm3 (0.0-0.8); Monocytes % (Auto) 8 % (0-12); Neutrophils # (Auto) 3.6 Thou/mm3 (1.8-7.7); Neutrophils % (Auto) 62 % (37-80); Nucleated Red Blood Cell # 0.18 Thou/mm3 (0.00-0.00); Nucleated Red Blood Cell % 3 /100 WBC (0); Platelet Count 182 Thou/mm3 (140-440); RDW Standard Deviation 66.4 fL (36.4-46.3); Red Blood Count 2.37 Miln/mm3 (4.00-5.20); White Blood Count 5.9 Thou/mm3 (3.6-11.0)
[2024-11-27 06:24] LABS: Hemoglobin 7.6 g/dL (12.0-16.0)
[2024-11-27 06:56] LABS: Alanine Aminotransferase < 7 U/L (10-49); Albumin, Serum 3.9 gm/dL (3.4-4.8); Albumin/Globulin Ratio 2.8 (1.2-2.2); Alkaline Phosphatase 28 U/L (46-116); Anion Gap 17 (7-16); Aspartate Amino Transferase 29 U/L (0-34); BUN/Creatinine Ratio 29 Ratio (12-20); Bilirubin,Total 0.6 mg/dL (0.3-1.2); Blood Urea Nitrogen 79 mg/dL (9-23); Calcium 8.7 mg/dL (8.3-10.6); Calcium (Corrected) 8.8 mg/dL (8.5-10.1); Carbon Dioxide 21.8 mMol/L (20.0-31.0); Chloride 108 mMol/L (98-107); Creatinine (Component) 2.7 mg/dL (0.6-1.3); Globulin 1.4 gm/dL (2.3-3.5); Glucose 73 mg/dL (74-106); Magnesium 1.8 mg/dL (1.6-2.6); Osmolality,Calculated 315 (275-295); Phosphorous 6.3 mg/dL (2.4-5.1); Potassium 4.6 mMol/L (3.4-5.1); Sodium 147 mMol/L (136-145); Total Protein 5.3 gm/dL (5.7-8.2); eGFR 17 See Note
[2024-11-27] MEDS: HYDROcodone/APAP 5/325 TABLET 1 TAB PO (08:08)
[2024-11-27] MEDS: EPOETIN ALFA-EPBX INJ 10,000 UNIT/ML VIAL (NON-ESRD) 10000 UNIT SC (10:21)
[2024-11-27] MEDS: PANTOPRAZOLE 40 MG TABLET PO (10:46)
[2024-11-27] MEDS: SEVELAMER CARBONATE 800 MG TABLET PO (10:46)
[2024-11-27] MEDS: PIPER/TAZO 3.375 GM PREMIX 3.375 GM/50 ML BAG IV ×2 (10:46→20:38)
--- NOTE | 2024-11-27 11:18 | EKG_ITS ---
[facility] Test Date: 2024-11-27 Pat Name: JOSE LUCAS [facility] Gender: Female Gang Leader: HILLARY : 1940 Requested By: Yang Rosas Order Number: [id number] Reading MD: Yang Rosas Measurements Intervals [place] Rate: 117 P: 222 CO: 179 QRS: 43 QRSD: 74 T: 78 QT: 281 QTc: 393 Interpretive Statements SINUS TACHYCARDIA WITH FREQUENT VENTRICULAR PREMATURE COMPLEXES LOW QRS VOLTAGE IN PRECORDIAL LEADS POSSIBLE RIGHT VENTRICULAR CONDUCTION DELAY ANTEROSEPTAL MYOCARDIAL INFARCTION , OF INDETERMINATE AGE Compared to ECG 11/25/2024 09:08:09 Ventricular premature complex(es) now present Atrial fibrillation no longer present Myocardial infarct finding still present /store/S0/[id number]/ecg/[id number].pdf
--- NOTE | 2024-11-27 11:20 | XR_ITS ---
Examination: AP chest single view Technique one AP portable upright chest single view Date and time: November 27, 2024, 11:42 AM Comparison November 24, 2004 Indications: Shortness Findings: Mild to moderate CHF Moderate enlargement cardiac contour, prominent vascular congestion and perihilar edema. Impression: Mild to moderate CHF
[2024-11-27] MEDS: NALOXONE INJ 1 MG/ML SYRINGE 2 ML 2 MG IV (11:30)
--- NOTE | 2024-11-27 11:43 | ESPR_ITS ---
Documentation for date of: 11/27/24 Subjective Subjective Interval history: 11/25/2024: Patient examined at bedside today. No acute overnight events. Patient's sodium 147, potassium 5, BUN/creatinine 143 and 2.5 respectively, blood glucose 87, white count 6.2, hemoglobin 7.8, phosphorus 6.9, magnesium 1.8, urine sodium 15, urine urea 377, urine creatinine 179. Patient's renal labs did not improve, and patient's creatine kinase was elevated as well. Due to patient's longstanding history of hematuria, patient may benefit from renal biopsy for diagnosis of possible nephrotic syndrome. Patient cannot receive fluids at this time or diuresis due to kidney injury. Patient is agreeable with procedure. 11/26/2024: Patient examined at bedside today. No acute overnight events. Urine output 225 mL over past 24 hours, BUN/creatinine 145 and 2.9 respectively, potassium 4.6, white count 6.2, hemoglobin 7.5, phosphorus 7, magnesium 1.8, calcium 8.8, HIV negative, hepatitis panel negative, hepatitis C negative. Patient is agreeable to getting biopsy of the right jaw, kidney and to put dialysis catheter in today. She will get her first dialysis session today. No other complaints at this time. For 11/27/2024: Patient examined at bedside today. No acute overnight events. Patient is going to get dialysis today. Urine output 7 mL past 24 hours. BUN/creatinine 79 2.7 respectively, potassium 1.6, white count 6, hemoglobin 10.6, magnesium 1.8, phosphorus 6.3, calcium 8.8. Patient to get Kidney biopsy Friday. Exam Vital Signs Temp Pulse Resp BP Pulse Ox O2 Del Method O2 Flow Rate 98.0 F 119 H 18 164/83 H 91 L Nasal Cannula 3 11/27/24 10:22 11/27/24 10:22 11/27/24 10:22 11/27/24 10:22 11/27/24 10:22 11/27/24 04:00 11/27/24 10:22 Narrative Exam General: AAOx2, appears to be bedbound, smiling, understands some Faroese, a bit sleepy during dialysis HEENT: Dry mucous membranes, poor dentition, some dried blood around mandibular area, right mandibular swelling that could be indicative of a mass, conjunctiva clear, EOMI, PERRLA, Cardiovascular: Irregularly irregular, radial pulses +2 bilaterally, S1, S2, ejection systolic murmur auscultated Pulmonary: Minimal crackles heard, no cough GI: Some possible rebound tenderness on left upper quadrant, bowel sounds present Extremities: Anasarca +3 bilaterally up to thigh Skin: Numerous areas of purpura seen in upper and lower extremities, rash that appears to be flat and erythematous inferior to sternum appears to be patch like Neuro: AAOx2, limited neurologic exam Psych: Able to slightly cooperate Objective Labs 11/28/24 05:15 11/28/24 05:15 Labs: Laboratory Results - last 24 hr 11/27/24 04:35 WBC 5.9 RBC 2.37 L Hgb 7.6 L Hct 22.6 L MCV 95 MCH 32.1 MCHC 33.6 RDW Std Deviation 66.4 H Plt Count 182 D Neut % (Auto) 62 Lymph % (Auto) 24 [place] % (Auto) 8 Eos % (Auto) 1 Baso % (Auto) 0 Neut # (Auto) 3.6 Lymph # (Auto) 1.4 [place] # (Auto) 0.5 Eos # (Auto) 0.1 Baso # (Auto) 0.0 Immature Gran # (Auto) 0.28 H Absolute Nucleated RBC 0.18 H Immature Gran % 5 H Nucleated RBC % 3 H Sodium 147 H Potassium 4.6 Chloride 108 H Carbon Dioxide 21.8 Anion Gap 17 H BUN 79 H Creatinine 2.7 H Estim Creat Clear Calc Not Performed. eGFR 17 L BUN/Creatinine Ratio 29 H Glucose 73 L Calculated Osmolality 315 H Calcium 8.7 Corrected Calcium 8.8 Phosphorus 6.3 H Magnesium 1.8 Total Bilirubin 0.6 AST 29 ALT < 7 L Alkaline Phosphatase 28 L D Total Protein 5.3 L Albumin 3.9 Globulin 1.4 L Albumin/Globulin Ratio 2.8 H Quality Measures Quality Measures none Advance care planning discussed with:: patient Assessment & Plan Assessment Current Active Medications: Generic Name Dose Route Start Last Admin Trade Name Freq PRN Reason Stop Dose Admin Acetaminophen 650 mg 11/24/24 23:56 11/25/24 23:32 Acetaminophen 325 Mg Tablet PO 12/24/24 23:55 650 mg Q6HR PRN Administration pain and Fever >100.4 Bumetanide 2 mg 11/25/24 13:30 11/26/24 20:08 Bumetanide Inj 0.25 Mg/Ml Vial 4 Ml IVP 12/25/24 13:29 2 mg BID PRINCESS Administration Docusate Sodium 100 mg 11/24/24 15:47 Docusate Sod 100 Mg Capsule PO 12/24/24 15:46 QDAY PRN CONSTIPATION Protocol Heparin Sodium (Porcine) 3,800 unit 11/26/24 16:48 Heparin Sod Inj 1000 Unit/Ml Vial 10 Ml INDWELLCAT 12/10/24 16:47 X1 PRN DIALYSIS Piperacillin/Tazobactam/Dextrose 3.375 gm in 50 mls @ 12.5 mls/hr 11/24/24 21:00 11/27/24 10:46 Zosyn IV 12/01/24 20:59 12.5 mls/hr Q12HR PRINCESS Administration Albumin Human 25 gm in 100 mls @ 100 mls/hr 11/25/24 13:30 11/26/24 21:09 Albuminar-25 Ivpb IV 11/28/24 13:29 Infused BID PRINCESS Infusion Albumin Human 25 gm in 100 mls @ 100 mls/hr 11/26/24 13:00 11/26/24 16:36 Albuminar-25 Ivpb IV 11/27/24 12:59 Infused PRN PRN Infusion DIALYSIS Melatonin 3 mg 11/25/24 21:00 11/26/24 20:13 Melatonin 3 Mg Tablet PO 12/25/24 20:59 3 mg HS PRINCESS Administration Ondansetron HCl 4 mg 11/24/24 15:47 11/25/24 13:38 Ondansetron Inj 2 Mg/Ml Inj 2 Ml IVP 12/24/24 15:46 4 mg Q6H PRN Administration NAUSEA OR VOMITING Protocol Pantoprazole Sodium 40 mg 11/25/24 09:00 11/27/24 10:46 Pantoprazole 40 Mg Tablet PO 12/25/24 08:59 40 mg QDAY PRINCESS Administration Pharmacy Consult 1 each 11/24/24 17:03 Pharmacy Renal Dose Adjustment 1 Ea XX 12/24/24 17:02 PRN PRN CONSULT Sevelamer Carbonate 800 mg 11/25/24 08:00 11/27/24 10:46 Sevelamer Carbonate 800 Mg Tablet PO 12/25/24 07:59 800 mg TIDWM PRINCESS Administration Plan Assessment Cheri is a 84-year-old female with past medical history of HFpEF (EF:50-55%), hypertension, Torres's palsy, Parkinson's, CKD, Afib (on Eliquis) who is currently admitted for JANEY and uremia. #Acute kidney injury on CKD stage IIIb #Anasarca, improving #Hyperkalemia #Uremia, improving #Prerenal azotemia #Hyperphosphatemia #? Cardiorenal syndrome #Oliguria DDx: Prerenal versus ATN versus obstructive Hypovolemia is high on differential at this point, BUN/creatinine ratio ~60 Patient endorses poor oral intake Patient appears to be intravascularly volume depleted, this could have been due to diuresis in combination with oral intake, although patient appears to have anasarca Patient could be having platelet dysfunction with uremia as patient has numerous areas of purpura, however patient is taking Eliquis High suspicion for JANEY causing uremia, however will rule out other factors including toxic ingestion, acidosis and other electrolyte abnormalities and infection Unsure if pt has had stones before Pt has vivas now Renal US: Small left kidney Bilateral renal parenchymal scar formation mild Bilateral renal cortical thinning No hydronephrosis 11/25/2024: FEUrea: 3.7, indicating prerenal ideology Urine sodium 15 Patient is unable to receive fluids due to fluid overload at this time, and cannot receive diuresis due to JANEY Patient continues to have uremia, creatinine 2.5, BUN 143 Patient went will likely need to be on dialysis, however we need to determine the ideology of the JANEY to see if patient will need longstanding dialysis Therefore we will do a renal biopsy as this is the patient's second time for having these episodes of uremia Urine output seems only to be 100 cc past 24 hours Patient could have underlying nephritic syndrome or ATN Patient could have MPGN, lupus nephritis, or other nephritic syndromes, however unlikely to present at this age, however patient could have had this longstanding as well, will further workup with additional testing 11/26/2024: Patient continues to have pitting edema +3, despite diuresis with Bumex and albumin Patient will get biopsy today to determine ideology of kidney disease HIV, hepatitis panel and hepatitis C negative BUN and creatinine 145 and 2.9 respectively, continues to worsen, patient will need dialysis at this point Patient can have type I cardiorenal syndrome, type III cardiorenal syndrome, or type IV cardiorenal syndrome Patient does have underlying chronic kidney disease, however has had JANEY and acute heart failure in both settings Unsure if which 1 came first, however patient continues to have oliguria and pitting edema in addition to prerenal azotemia and low urine sodium With diuresis and albumin not improving patient's condition, this could indicate patient having type III cardiorenal syndrome 11/27/2024: UOP 70 mL past 24 hrs, however Uremia continues to improve in addition to Cr Will have dialysis session today as well Plan: ? Vivas ? Strict DORIS's ? Avoid nephrotoxic agents ? Renally dose medicines ? Trend CMP and lytes ? CT-guided renal biopsy Friday ? Follow-up complement C3, C4, TIP, and ANCA #UTI Patient may be colonized at this point, however shows WBCs, shows bacteria shows leukocyte esterase Previous cultures are Proteus and Klebsiella that do appear to be mainly pansensitive Plan: ? Continue with IV Zosyn ? Follow-up blood and urine cultures #Hematuria DDx: Nephritic syndrome, IgA nephropathy or bladder malignancy Patient could also have rhabdo as well as patient has RBCs +2 blood and 183 RBCs Blood seen in previous Urinalyses Patient may have underlying nephritic syndrome which is causing patient's kidney problems at this point Due to chronicity of hematuria, patient will benefit from renal biopsy Plan: ? Renal biopsy Friday ? Consider further imaging and urology consult #Normocytic anemia Likely anemia of chronic disease Hgb 7.6 S/p Epogen and Ferumoxytol x1 Plan: ? Trend with CBC #Facial mass, R side #Hypertension #Hyperlipidemia #A-fib #Torres's palsy #HFpEF Above managed by primary hospitalist team Patient seen and care discussed with my attending physician, Dr. Omid Washington, PGY-1 Attending Provider Attestation/Addendum Patient seen and examined with resident physician Dr. Gutierrez. Note reviewed, agree with findings and recommendations. Patient presented to my office with weakness, not feeling well in the right jaw lump. Workup showed that she is in the acute kidney injury. Admitted for further evaluation. Cannot give IV fluids as patient clinically looks rather fluid overloaded. Gave 250 cc fluids. If no improvement-will plan for dialysis in AM. 11/25/2024 patient's urinary output still remains low. Spoke to her batching operator Dr. Ksenia Reynolds-patient seems to be in cardiorenal syndrome. Decided to proceed with Bumex and albumin over the weekend prior to initiation of dialysis, unless patient's albumin remains very high. Clinically she is more alert and awake. Very hard of hearing-acute and not sure exactly what is going on. Patient also noted to have significant hematuria for the last Few months. In the setting of renal failure decided to proceed with kidney biopsy in AM. Plan of care discussed with primary team. Added iron, Procrit for her anemia. Urine sodium less than 15 in the setting of significant fluid overload consistent with prerenal azotemia//cardiorenal syndrome 11/27/2024 patient consented for dialysis catheter and dialysis. Patient currently seen on second dialysis. Patient seems to be slightly confused although not sure due to her significant hearing problems. Was complaining of a severe back pain and [place] 1 tablet was given during dialysis. Hemodialysis for 2.5hours, qb 250, 2K, ultrafiltration 1 L, Epogen 6000, no heparin ordered. Will be very slow in dialysis to avoid dialysis disequilibrium. Plan of care discussed with the dialysis nurse. Please see dialysis flowsheet for further details. Mandibular biopsy scheduled for today. Patient will get kidney biopsy on Friday Addendum-postdialysis patient had a rapid response and was very altered with shortness of breath. Primary team at bedside. Spoke to dialysis nurse- uneventfully during dialysis. However due to her altered mental status 1 dose of Narcan was given. CTA chest to rule out PE was ordered. Daughter at bedside-requested DNR, DNI
[2024-11-27] MEDS: LEVALBUTEROL RT 0.63 MG/3 ML NEBU INH (11:48)
[2024-11-27 12:02] LABS: Base Excess, Venous -1 (-3-3); Lactate (Lactic Acid) 1.5 mMol/L (0.4-2.0); O2 Saturation, Venous 99 % (96-97); PCO2, Venous 46 mmHg (36-56); PO2, Venous 112 mmHg (15-58); pH, Venous 7.35 (7.33-7.66)
[2024-11-27 12:26] LABS: Anion Gap 15 (7-16); BUN/Creatinine Ratio 27 Ratio (12-20); Blood Urea Nitrogen 46 mg/dL (9-23); Calcium 9.8 mg/dL (8.3-10.6); Carbon Dioxide 26.9 mMol/L (20.0-31.0); Chloride 102 mMol/L (98-107); Creatinine (Component) 1.7 mg/dL (0.6-1.3); Glucose 97 mg/dL (74-106); Osmolality,Calculated 298 (275-295); Potassium 3.7 mMol/L (3.4-5.1); Sodium 144 mMol/L (136-145); eGFR 30 See Note
[2024-11-27 12:29] LABS: Troponin I 0.073 ng/mL (0.0-0.045)
--- NOTE | 2024-11-27 14:00 | PD.RESEVENT ---
Documentation for date of: 11/27/24
--- NOTE | 2024-11-27 16:34 | ESPR_ITS ---
<Statement entered by Aston Al MD - 11/29/24 02:15> I discussed with and supervised the buyer intern physician involved in the care of this patient. Patient assessment and plan was discussed with entire medicine team, including my attending. I agree with the assessment and plan as documented by buyer intern doctor. Patient care was discussed with my attending physician Dr.Bishwakarma Aston Al, PGY-2 Documentation for date of: 11/27/24 Subjective Subjective Interval history: Patient is seen and examined at bedside Vitals are stable. Patient underwent HD this morning After coming from HD, patient had applesauce with medications following which she became tachypneic, tachycardic and a rapid response was called on the patient Patient was given nebulization, Narcan as patient received opioid during dialysis Chest x-ray is done which showed bilateral moderate vascular congestion VBG is within normal limits. CMP done showed sodium 144, potassium 3.7, BUN 46, creatinine 1. 7 After 15 minutes, patient stabilized. Head CT and CT angio of chest is ordered to rule out pulmonary embolism Exam Vital Signs Temp Pulse Resp BP Pulse Ox O2 Del Method O2 Flow Rate 97.7 F 86 19 146/64 H 100 Nasal Cannula 2 11/27/24 16:00 11/27/24 16:00 11/27/24 16:00 11/27/24 16:00 11/27/24 16:00 11/27/24 16:11/27/24 16:00 Narrative Exam General: Drowsy. severe hearing loss noted HEENT: Normocephalic, atraumatic, mucous membranes moist. Noted swelling on right cheek, hard consistency. Heart: Irregular rate and rhythm, no murmurs. Lungs: Clear to auscultation with no wheezing or crackles. Abdomen: Soft, nondistended, nontender, positive bowel sounds. ?No guarding or rebound tenderness. Neurologic: Able to move all 4 extremities Extremities: 2+ pitting pedal edema extending to the knees and also noted edema in the dependent area including sacral, upper thighs and lower abdomen including genitalia Skin: Noted ecchymotic patches on the front of the chest. Objective Labs 11/28/24 21:49 11/28/24 21:49 Labs: Laboratory Results - last 24 hr 11/27/24 11/27/24 04:35 11:40 WBC 5.9 RBC 2.37 L Hgb 7.6 L Hct 22.6 L MCV 95 MCH 32.1 MCHC 33.6 RDW Std Deviation 66.4 H Plt Count 182 D Neut % (Auto) 62 Lymph % (Auto) 24 Fisher % (Auto) 8 Eos % (Auto) 1 Baso % (Auto) 0 Neut # (Auto) 3.6 Lymph # (Auto) 1.4 Fisher # (Auto) 0.5 Eos # (Auto) 0.1 Baso # (Auto) 0.0 Immature Gran # (Auto) 0.28 H Absolute Nucleated RBC 0.18 H Immature Gran % 5 H Nucleated RBC % 3 H VBG pH 7.35 VBG pCO2 46 VBG pO2 112 H VBG O2 Sat (Stan) 99 H VBG Base Excess -1 Sodium 147 H 144 Potassium 4.6 3.7 D Chloride 108 H 102 Carbon Dioxide 21.8 26.9 Anion Gap 17 H 15 BUN 79 H 46 H Creatinine 2.7 H 1.7 H D Estim Creat Clear Calc Not Performed. Not Performed. eGFR 17 L 30 L BUN/Creatinine Ratio 29 H 27 H Glucose 73 L 97 Calculated Osmolality 315 H 298 H Lactic Acid 1.5 Calcium 8.7 9.8 Corrected Calcium 8.8 Phosphorus 6.3 H Magnesium 1.8 Total Bilirubin 0.6 AST 29 ALT < 7 L Alkaline Phosphatase 28 L D Troponin I 0.073 H* Total Protein 5.3 L Albumin 3.9 Globulin 1.4 L Albumin/Globulin Ratio 2.8 H ABG Interpretation ABG results: 11/27/24 11:40 VBG pH 7.35 VBG pCO2 46 VBG pO2 112 H VBG Base Excess -1 Quality Measures Quality Measures none Advance care planning discussed with:: child Assessment & Plan Assessment Current Active Medications: Generic Name Dose Route Start Last Admin Trade Name Freq PRN Reason Stop Dose Admin Acetaminophen 650 mg 11/24/24 23:56 11/25/24 23:32 Acetaminophen 325 Mg Tablet PO 12/24/24 23:55 650 mg Q6HR PRN Administration pain and Fever >100.4 Bumetanide 2 mg 11/25/24 13:30 11/26/24 20:08 Bumetanide Inj 0.25 Mg/Ml Vial 4 Ml IVP 12/25/24 13:29 2 mg BID PRINCESS Administration Docusate Sodium 100 mg 11/24/24 15:47 Docusate Sod 100 Mg Capsule PO 12/24/24 15:46 QDAY PRN CONSTIPATION Protocol Heparin Sodium (Porcine) 3,800 unit 11/26/24 16:48 Heparin Sod Inj 1000 Unit/Ml Vial 10 Ml INDWELLCAT 12/10/24 16:47 X1 PRN DIALYSIS Piperacillin/Tazobactam/Dextrose 3.375 gm in 50 mls @ 12.5 mls/hr 11/24/24 21:00 11/27/24 10:46 Zosyn IV 12/01/24 20:59 12.5 mls/hr Q12HR PRINCESS Administration Albumin Human 25 gm in 100 mls @ 100 mls/hr 11/25/24 13:30 11/26/24 21:09 Albuminar-25 Ivpb IV 11/28/24 13:29 Infused BID PRINCESS Infusion Melatonin 3 mg 11/25/24 21:00 11/26/24 20:13 Melatonin 3 Mg Tablet PO 12/25/24 20:59 3 mg HS PRINCESS Administration Ondansetron HCl 4 mg 11/24/24 15:47 11/25/24 13:38 Ondansetron Inj 2 Mg/Ml Inj 2 Ml IVP 12/24/24 15:46 4 mg Q6H PRN Administration NAUSEA OR VOMITING Protocol Pantoprazole Sodium 40 mg 11/25/24 09:00 11/27/24 10:46 Pantoprazole 40 Mg Tablet PO 12/25/24 08:59 40 mg QDAY PRINCESS Administration Pharmacy Consult 1 each 11/24/24 17:03 Pharmacy Renal Dose Adjustment 1 Ea XX 12/24/24 17:02 PRN PRN CONSULT Sevelamer Carbonate 800 mg 11/25/24 08:00 11/27/24 13:04 Sevelamer Carbonate 800 Mg Tablet PO 12/25/24 07:59 Not Given TIDWM PRINCESS Plan A 84-year-old female with past medical history of HFpEF 50-55%, hypertension, Torres's palsy, Parkinson's, atrial fibrillation on Eliquis, recent hospitalization for dehydration and acute kidney injury presented to the hospital with chief complaints of lethargy since 2 days and swelling in the right cheek since 3 weeks and admitted in the hospital for JANEY, likely prerenal in the setting of poor oral intake and diuretics # Acute metabolic encephalopathy, resolved # Uremia # Acute kidney injury, likely prerenal - Dehydration vs cardiorenal # Anasarca - likely Right heart failure in the setting of # History of HFpEF and elevated RVSP, mod PAH - Brought to the hospital in view of lethargy since Friday. - Per family at the bedside, patient is on fluid restriction and is on diuretics - Patient had similar complaints 3 weeks ago for which she was admitted for JANEY and received IV fluids - Vitals at the time of admission are stable except for mildly low blood pressure 99/60 mmHg - On physical examination, patient noted to have peripheral fluid edema and appears intravascularly depleted, dry mucous membranes - Labs at the time of admission are significant for Hb 7.4, sodium 146, potassium 5.6, chloride 108, anion gap 17, BUN 148, creatinine 2.5 - Ultrasound of kidneys - Small left kidney, B/L mild renal parenchymal scarring noted. - FeNa is 0.1% - prerenal Plan - Started on albumin and Bumex [11/25-, Held as of 11/26 - Strict I&O's ordered, placed Silva catheter - Placed permanent tunneled dialysis catheter on 11/26 - Consulted Dr. Anne, recommended hemodialysis -done on 11/26, 11/27 - Will avoid nephrotoxic medication and renally dose medications - Dr. Millan consulted and will appreciate his recommendations - Autoimmune panel and renal biopsy is ordered in view of hematuria since 2018 # Right mandibular mass - infection versus malignancy - Patient was noted to have a mass that is slowly growing on right cheek since 3 weeks - Denies fever, redness on the right cheek - On physical examination, noted mild tenderness and hard on palpation - Face CT showed extensive bone destruction involving the right mandible with associated soft tissue involving inside and outside of the mandible Plan - Started on Zosyn 3.375 g every 12 hourly - Underwent biopsy today, pending results # Anemia, likely 2/2 blood loss - Hemoglobin in 10/2024 is 8.9 - At the time of presentation, hemoglobin is 7.4 - Patient is on Eliquis 2.5 Mg p.o. twice daily for atrial fibrillation - Noted bleeding manifestations in the oral cavity - 1 PRBC transfusion is done Plan -Held anticoagulation for now -Stool occult blood is ordered -will look for bleeding manifestations and transfuse as needed # Hypernatremia # Hyperkalemia, resolved - At the time of admission, sodium is 146, potassium is 5.6 -- 11/26 Na 147, K 4.6 - Patient received albuterol inhalation and Kayexalate in the ED Plan - Will replete/treat electrolytes as needed # ?UTI - Patient is not able to give appropriate history - Urinalysis showed 2+ proteinuria, 2+ blood, 1+ bilirubin, 182 RBC, 59 WBC, 1+ bacteria - Patient was started on Zosyn for right mandibular mass which will cover UTI # History of HFpEF - Patient is currently on diuretics and EF is 55 to 60% in 2023 - Repeat echo was ordered, EF 55-60%, RVSP 60 # History of A-fib, - Currently in afib but rate is well controlled - Patient is on Eliquis 2.5 Mg p.o. twice daily - Will hold Eliquis for now in view of pending renal biopsy # Torres's palsy # Parkinson's # Hypertension - Blood pressure is within normal limits since the hospital stay - Will monitor blood pressures and treat accordingly - Parkinson's and Torres's palsy appears to be chronic conditions and stable Hospital Maintenance: Dispo: Tele DVT ppx: SCD GI ppx: protonix Diet: Renal IV lines: Peripheral Code status: DNR Patient plan of care was discussed with the attending physician, Dr. Crespo and senior resident Dr. Servando Rosas, PGY1 Attending Provider Attestation/Addendum I attest that I was physically present for the evaluation, physical examination, lab and imaging review of the patient with the residents. I discussed the case with the residents and agree with the findings and plans of care as documented above. Wilber Crespo MD
[2024-11-27 17:39] LABS: Troponin I 0.132 ng/mL (0.0-0.045)
[2024-11-27 22:38] LABS: Troponin I 0.077 ng/mL (0.0-0.045)
[2024-11-28] VITALS (10 sets, daily range): BP systolic 92–130; BP diastolic 51–71; PULSE 90–110; RESP 14–99; TEMP 36.2–36.7; O2SAT 83–100
[2024-11-28 06:24] LABS: Basophils % (Auto) 0 % (0-2.5); Eosinophils # (Auto) 0.1 Thou/mm3 (0.0-0.5); Eosinophils % (Auto) 1 % (0-10); Hematocrit 23.3 % (36.0-46.0); Hemoglobin 7.7 g/dL (12.0-16.0); Immature Granulocytes % (Auto) 4 % (0-0); Immature Granulocytes Auto 0.37 Thou/mm3 (0.00-0.00); Lymphocytes # (Auto) 1.3 Thou/mm3 (1.0-4.8); Lymphocytes % (Auto) 15 % (10-50); Mean Corpuscular Hemoglobin 31.6 pg (25.0-35.0); Mean Corpuscular Volume 96 fL (80-100); Monocytes # (Auto) 1.3 Thou/mm3 (0.0-0.8); Monocytes % (Auto) 15 % (0-12); Neutrophils # (Auto) 5.8 Thou/mm3 (1.8-7.7); Neutrophils % (Auto) 66 % (37-80); Nucleated Red Blood Cell # 0.53 Thou/mm3 (0.00-0.00); Nucleated Red Blood Cell % 6 /100 WBC (0); Platelet Count 208 Thou/mm3 (140-440); RDW Standard Deviation 66.6 fL (36.4-46.3); Red Blood Count 2.44 Miln/mm3 (4.00-5.20); White Blood Count 8.8 Thou/mm3 (3.6-11.0)
[2024-11-28 06:59] LABS: Path Review Blood Smear Sent to Pathologist
[2024-11-28 07:18] LABS: Alanine Aminotransferase 7 U/L (10-49); Albumin, Serum 3.5 gm/dL (3.4-4.8); Albumin/Globulin Ratio 2.1 (1.2-2.2); Alkaline Phosphatase 30 U/L (46-116); Anion Gap 13 (7-16); Aspartate Amino Transferase 35 U/L (0-34); BUN/Creatinine Ratio 21 Ratio (12-20); Bilirubin,Total 0.8 mg/dL (0.3-1.2); Blood Urea Nitrogen 53 mg/dL (9-23); Calcium (Corrected) 9.4 mg/dL (8.5-10.1); Carbon Dioxide 25.4 mMol/L (20.0-31.0); Chloride 104 mMol/L (98-107); Creatinine (Component) 2.5 mg/dL (0.6-1.3); Globulin 1.7 gm/dL (2.3-3.5); Glucose 80 mg/dL (74-106); Magnesium 1.8 mg/dL (1.6-2.6); Osmolality,Calculated 296 (275-295); Potassium 4.1 mMol/L (3.4-5.1); Sodium 142 mMol/L (136-145); Total Protein 5.2 gm/dL (5.7-8.2); eGFR 19 See Note
--- NOTE | 2024-11-28 08:02 | PC.NURSE ---
Ok per Dr. Anne and Dr. Al for patient to have CT with contrast today, HD will be done tomorrow, ok for patient to have PO meds.
[2024-11-28] MEDS: PIPER/TAZO 3.375 GM PREMIX 3.375 GM/50 ML BAG IV ×2 (09:46→21:29)
--- NOTE | 2024-11-28 11:58 | ESPR_ITS ---
Documentation for date of: 11/28/24 Subjective Subjective Interval history: Cheri is a 84-year-old female with past medical history of HFpEF (EF:50-55%), hypertension, Torres's palsy, Parkinson's, CKD, Afib (on Eliquis) who comes in for an evaluation after labs had revealed the patient's kidney function was altered. Patient comes from nursing facility and was found to have elevated creatinine. Patient was recently put into the care home about a month ago and this was because of recurrent falls and lack of support at home. While at the care home, patient has been having poor oral intake. It is unknown if patient is having poor oral intake due to appetite or if a possible mass in her right mandibular area is affecting her. Patient says that she is not having any symptoms, however says she has not eaten in about 4 to 5 days, is unsure if its her appetite. She denies any vomiting, nausea, diarrhea, abdominal pain, chest pain or shortness of breath. Patient has been using oxygen however at the nursing facility and is unsure why. Patient's director of testing is Dr. Reynolds. She was told by her heart doctor and her primary care doctor to limit her fluid intake. She takes her medicines as prescribed. Family present at bedside says that they are not allowed to receive information about her health care unless it is approved by her. The son of the patient is currently working on power of title attorney for the patient at this time. No other complaints at this time. Denies a history of urinary retention. Patient was recently discharged from the hospital in October for JANEY and uremia and similar symptoms. 11/25/2024: Patient examined at bedside today. No acute overnight events. Patient's sodium 147, potassium 5, BUN/creatinine 143 and 2.5 respectively, blood glucose 87, white count 6.2, hemoglobin 7.8, phosphorus 6.9, magnesium 1.8, urine sodium 15, urine urea 377, urine creatinine 179. Patient's renal labs did not improve, and patient's creatine kinase was elevated as well. Due to patient's longstanding history of hematuria, patient may benefit from renal biopsy for diagnosis of possible nephrotic syndrome. Patient cannot receive fluids at this time or diuresis due to kidney injury. Patient is agreeable with procedure. 11/26/2024: Patient examined at bedside today. No acute overnight events. Urine output 225 mL over past 24 hours, BUN/creatinine 145 and 2.9 respectively, potassium 4.6, white count 6.2, hemoglobin 7.5, phosphorus 7, magnesium 1.8, calcium 8.8, HIV negative, hepatitis panel negative, hepatitis C negative. Patient is agreeable to getting biopsy of the right jaw, kidney and to put dialysis catheter in today. She will get her first dialysis session today. No other complaints at this time. For 11/27/2024: Patient examined at bedside today. No acute overnight events. Patient is going to get dialysis today. Urine output 7 mL past 24 hours. BUN/creatinine 79 2.7 respectively, potassium 1.6, white count 6, hemoglobin 10.6, magnesium 1.8, phosphorus 6.3, calcium 8.8. Patient to get Kidney biopsy Friday. 11/28/2024 daughter, friend at bedside. Patient unable to even open her eyes. Barely arousable. CT brain pending. Blood pressure 130/63, heart rate 92. Hemoglobin 7.7. Sodium 142, potassium 4.1, creatinine 2.5, calcium 9.4, phosphorus 6, magnesium 1.8, LFTs normal, troponin tad elevated. Review of Systems Review of Systems Narrative Review of Systems: Unable to obtain as patient barely arousable. Very hard of hearing Exam Vital Signs Temp Pulse Resp BP Pulse Ox O2 Del Method O2 Flow Rate 36.4 C 92 26 H 130/63 100 Nasal Cannula 2 11/28/24 08:00 11/28/24 08:00 11/28/24 08:00 11/28/24 08:00 11/28/24 08:00 11/28/24 08:00 11/28/24 08:00 Narrative Exam GENERAL APPEARANCE: patient comfortable in telemetry. Closed her eyes Very hard of hearing NECK: Neck supple, no JVD or bruit CARDIOVASCULAR: Heart regular, no murmurs LUNGS/CHEST: Chest clear to auscultation. No rales, rhonchi, wheezing ABDOMEN: Soft, nontender, nondistended. No masses. Normal bowel sounds. EXTREMITIES: 2+ edema in the extremities SKIN: Significant bruises noted Right IJ dialysis catheter Musculoskeletal-in bed NEUROLOGICAL : Unable to be aroused. Objective Labs 11/28/24 05:15 11/28/24 05:15 Labs: Laboratory Results - last 24 hr 11/27/24 11/27/24 11/27/24 11:40 15:45 22:04 WBC RBC Hgb Hct MCV MCH MCHC RDW Std Deviation Plt Count Neut % (Auto) Lymph % (Auto) [place] % (Auto) Eos % (Auto) Baso % (Auto) Neut # (Auto) Lymph # (Auto) [place] # (Auto) Eos # (Auto) Baso # (Auto) Immature Gran # (Auto) Absolute Nucleated RBC Immature Gran % Nucleated RBC % Smear Path Review VBG pH 7.35 VBG pCO2 46 VBG pO2 112 H VBG O2 Sat (Stan) 99 H VBG Base Excess -1 Sodium 144 Potassium 3.7 D Chloride 102 Carbon Dioxide 26.9 Anion Gap 15 BUN 46 H Creatinine 1.7 H D Estim Creat Clear Calc Not Performed. eGFR 30 L BUN/Creatinine Ratio 27 H Glucose 97 Calculated Osmolality 298 H Lactic Acid 1.5 Calcium 9.8 Corrected Calcium Phosphorus Magnesium Total Bilirubin AST ALT Alkaline Phosphatase Troponin I 0.073 H* 0.132 H* 0.077 H* Total Protein Albumin Globulin Albumin/Globulin Ratio 11/28/24 05:15 WBC 8.8 D RBC 2.44 L Hgb 7.7 L Hct 23.3 L MCV 96 MCH 31.6 MCHC 33.0 RDW Std Deviation 66.6 H Plt Count 208 Neut % (Auto) 66 Lymph % (Auto) 15 [place] % (Auto) 15 H Eos % (Auto) 1 Baso % (Auto) 0 Neut # (Auto) 5.8 Lymph # (Auto) 1.3 [place] # (Auto) 1.3 H Eos # (Auto) 0.1 Baso # (Auto) 0.0 Immature Gran # (Auto) 0.37 H Absolute Nucleated RBC 0.53 H Immature Gran % 4 H Nucleated RBC % 6 H Smear Path Review Sent to Pathologist VBG pH VBG pCO2 VBG pO2 VBG O2 Sat (Stan) VBG Base Excess Sodium 142 Potassium 4.1 Chloride 104 Carbon Dioxide 25.4 Anion Gap 13 BUN 53 H Creatinine 2.5 H D Estim Creat Clear Calc Not Performed. eGFR 19 L BUN/Creatinine Ratio 21 H Glucose 80 Calculated Osmolality 296 H Lactic Acid Calcium 9.0 Corrected Calcium 9.4 Phosphorus 6.0 H Magnesium 1.8 Total Bilirubin 0.8 AST 35 H ALT 7 L Alkaline Phosphatase 30 L Troponin I Total Protein 5.2 L Albumin 3.5 Globulin 1.7 L Albumin/Globulin Ratio 2.1 ABG Interpretation ABG results: 11/27/24 11:40 VBG pH 7.35 VBG pCO2 46 VBG pO2 112 H VBG Base Excess -1 Assessment & Plan Additional Assessment & Plan Additional Plan: Cheri is a 84-year-old female with past medical history of HFpEF (EF:50-55%), hypertension, Torres's palsy, Parkinson's, CKD, Afib (on Eliquis) who is currently admitted for JANEY and uremia. #Acute kidney injury on CKD stage IIIb #Anasarca, improving #? Cardiorenal syndrome Suspect intrinsic versus ischemic ATN from underlying cardiorenal syndrome. Patient ended up on dialysis. Did receive 2-day dialysis sessions. Currently she seems to be very altered after the second session. Question dialysis disequilibrium although blood flow was minimal during second session. CT brain ordered. #UTI Patient may be colonized at this point, however shows WBCs, shows bacteria shows leukocyte esterase Previous cultures are Proteus and Klebsiella that do appear to be mainly pansensitive Plan: ? Continue with IV Zosyn ? Follow-up blood and urine cultures #Hematuria DDx: Nephritic syndrome, IgA nephropathy or bladder malignancy Patient could also have rhabdo as well as patient has RBCs Owing to her fragility-hold off on biopsy #Normocytic anemia Likely anemia of chronic disease Hgb 7.7 S/p Epogen and Ferumoxytol x1 Plan: ? Trend with CBC #Facial mass, R side-status post biopsy #Hypertension #Hyperlipidemia #A-fib #Torres's palsy #HFpEF Above managed by primary hospitalist team
--- NOTE | 2024-11-28 12:27 | PD.RESPRO ---
Documentation for date of: 11/28/24 Subjective Subjective Interval history: Patient continues to be less alert compared to previous days. Patient was to get chest CTA and head CT, she was found to be agitated and not tolerating the CT, ativan was ordered for agitation. Shortly after, rapid response was called as patient was found to be hypoxic, tachycardica and less arousable. Flumazenil was administered after which patient improved. D-dimer was ordered which was 1000+. Patient less likely having PE, due to chage in mentation, head CT was re-ordered along with PRN Haldol for agitation if needed. Will restart Eliquis and consider PEG feeding as patient has not been tolerating food intake for last x2 days. Patient to have dialysis tomorrow for her 3rd session, renal biopsy that was scheduled for tomorrow/friday postponed. Exam Vital Signs Temp Pulse Resp BP Pulse Ox O2 Del Method O2 Flow Rate 97.5 F 92 26 H 130/63 100 Nasal Cannula 2 11/28/24 08:00 11/28/24 08:00 11/28/24 08:00 11/28/24 08:00 11/28/24 08:00 11/28/24 08:00 11/28/24 08:00 Narrative Exam GENERAL APPEARANCE: patient sleeping, less responsive than previous day, in mild distress, on nasal cannula NECK: Neck supple, no JVD or bruit CARDIOVASCULAR: Heart regular, no murmurs LUNGS/CHEST: Chest clear to auscultation. No rales, rhonchi, wheezing ABDOMEN: Soft, nontender, nondistended. No masses. Normal bowel sounds. EXTREMITIES: 2+ edema in the extremities SKIN: Significant bruises noted Right IJ dialysis catheter NEUROLOGICAL : Unable to be aroused. Objective Labs 11/28/24 21:49 11/28/24 21:49 Labs: Laboratory Results - last 24 hr 11/27/24 11/27/24 11/27/24 11:40 15:45 22:04 WBC RBC Hgb Hct MCV MCH MCHC RDW Std Deviation Plt Count Neut % (Auto) Lymph % (Auto) [place] % (Auto) Eos % (Auto) Baso % (Auto) Neut # (Auto) Lymph # (Auto) [place] # (Auto) Eos # (Auto) Baso # (Auto) Immature Gran # (Auto) Absolute Nucleated RBC Immature Gran % Nucleated RBC % Smear Path Review Sodium 144 Potassium 3.7 D Chloride 102 Carbon Dioxide 26.9 Anion Gap 15 BUN 46 H Creatinine 1.7 H D Estim Creat Clear Calc Not Performed. eGFR 30 L BUN/Creatinine Ratio 27 H Glucose 97 Calculated Osmolality 298 H Calcium 9.8 Corrected Calcium Phosphorus Magnesium Total Bilirubin AST ALT Alkaline Phosphatase Troponin I 0.073 H* 0.132 H* 0.077 H* Total Protein Albumin Globulin Albumin/Globulin Ratio 11/28/24 05:15 WBC 8.8 D RBC 2.44 L Hgb 7.7 L Hct 23.3 L MCV 96 MCH 31.6 MCHC 33.0 RDW Std Deviation 66.6 H Plt Count 208 Neut % (Auto) 66 Lymph % (Auto) 15 [place] % (Auto) 15 H Eos % (Auto) 1 Baso % (Auto) 0 Neut # (Auto) 5.8 Lymph # (Auto) 1.3 [place] # (Auto) 1.3 H Eos # (Auto) 0.1 Baso # (Auto) 0.0 Immature Gran # (Auto) 0.37 H Absolute Nucleated RBC 0.53 H Immature Gran % 4 H Nucleated RBC % 6 H Smear Path Review Sent to Pathologist Sodium 142 Potassium 4.1 Chloride 104 Carbon Dioxide 25.4 Anion Gap 13 BUN 53 H Creatinine 2.5 H D Estim Creat Clear Calc Not Performed. eGFR 19 L BUN/Creatinine Ratio 21 H Glucose 80 Calculated Osmolality 296 H Calcium 9.0 Corrected Calcium 9.4 Phosphorus 6.0 H Magnesium 1.8 Total Bilirubin 0.8 AST 35 H ALT 7 L Alkaline Phosphatase 30 L Troponin I Total Protein 5.2 L Albumin 3.5 Globulin 1.7 L Albumin/Globulin Ratio 2.1 ABG Interpretation ABG results: 11/27/24 11:40 VBG pH 7.35 VBG pCO2 46 VBG pO2 112 H VBG Base Excess -1 Quality Measures Quality Measures none Advance care planning discussed with:: child Assessment & Plan Assessment Current Active Medications: Generic Name Dose Route Start Last Admin Trade Name Freq PRN Reason Stop Dose Admin Acetaminophen 650 mg 11/24/24 23:56 11/25/24 23:32 Acetaminophen 325 Mg Tablet PO 12/24/24 23:55 650 mg Q6HR PRN Administration pain and Fever >100.4 Bumetanide 2 mg 11/25/24 13:30 11/26/24 20:08 Bumetanide Inj 0.25 Mg/Ml Vial 4 Ml IVP 12/25/24 13:29 2 mg BID PRINCESS Administration Docusate Sodium 100 mg 11/24/24 15:47 Docusate Sod 100 Mg Capsule PO 12/24/24 15:46 QDAY PRN CONSTIPATION Protocol Heparin Sodium (Porcine) 3,800 unit 11/26/24 16:48 Heparin Sod Inj 1000 Unit/Ml Vial 10 Ml INDWELLCAT 12/10/24 16:47 X1 PRN DIALYSIS Piperacillin/Tazobactam/Dextrose 3.375 gm in 50 mls @ 12.5 mls/hr 11/24/24 21:00 11/28/24 09:46 Zosyn IV 12/01/24 20:59 12.5 mls/hr Q12HR PRINCESS Administration Albumin Human 25 gm in 100 mls @ 100 mls/hr 11/25/24 13:30 11/26/24 21:09 Albuminar-25 Ivpb IV 11/28/24 13:29 Infused BID PRINCESS Infusion Melatonin 3 mg 11/25/24 21:00 11/27/24 20:38 Melatonin 3 Mg Tablet PO 12/25/24 20:59 Not Given HS PRINCESS Ondansetron HCl 4 mg 11/24/24 15:47 11/25/24 13:38 Ondansetron Inj 2 Mg/Ml Inj 2 Ml IVP 12/24/24 15:46 4 mg Q6H PRN Administration NAUSEA OR VOMITING Protocol Pantoprazole Sodium 40 mg 11/25/24 09:00 11/28/24 11:08 Pantoprazole 40 Mg Tablet PO 12/25/24 08:59 Not Given QDAY PRINCESS Pharmacy Consult 1 each 11/24/24 17:03 Pharmacy Renal Dose Adjustment 1 Ea XX 12/24/24 17:02 PRN PRN CONSULT Sertraline HCl 50 mg 11/28/24 11:15 11/28/24 12:22 Sertraline Hcl 25 Mg Tablet PO 12/28/24 11:14 Not Given QDAY PRINCESS Sevelamer Carbonate 800 mg 11/25/24 08:00 11/28/24 11:07 Sevelamer Carbonate 800 Mg Tablet PO 12/25/24 07:59 Not Given TIDWM PRINCESS Plan A 84-year-old female with past medical history of HFpEF 50-55%, hypertension, Torres's palsy, Parkinson's, atrial fibrillation on Eliquis, recent hospitalization for dehydration and acute kidney injury presented to the hospital with chief complaints of lethargy since 2 days and swelling in the right cheek since 3 weeks and admitted in the hospital for JANEY, likely prerenal in the setting of poor oral intake and diuretics # Acute metabolic encephalopathy # Uremia # Acute kidney injury, likely prerenal - Dehydration vs cardiorenal # Anasarca - likely Right heart failure in the setting of # History of HFpEF and elevated RVSP, mod PAH - Brought to the hospital in view of lethargy since Friday. - Per family at the bedside, patient is on fluid restriction and is on diuretics - Patient had similar complaints 3 weeks ago for which she was admitted for JANEY and received IV fluids - Vitals at the time of admission are stable except for mildly low blood pressure 99/60 mmHg - On physical examination, patient noted to have peripheral fluid edema and appears intravascularly depleted, dry mucous membranes - Labs at the time of admission are significant for Hb 7.4, sodium 146, potassium 5.6, chloride 108, anion gap 17, BUN 148, creatinine 2.5 - Ultrasound of kidneys - Small left kidney, B/L mild renal parenchymal scarring noted. - FeNa is 0.1% - prerenal - Patient has received x2 session of dialysis - Renal biopsy that was scheduled for 11/29 postponed Plan - Started on albumin and Bumex [11/25-, Held as of 11/26 - Strict I&O's ordered, placed Silva catheter - Placed permanent tunneled dialysis catheter on 11/26 - Consulted Dr. Anne, recommended hemodialysis -done on 11/26, 11/27 - Next dialysis scheduled for 11/29 - Will avoid nephrotoxic medication and renally dose medications - Dr. Millan onboard, will appreciate his recommendations # Right mandibular mass - infection versus malignancy - Patient was noted to have a mass that is slowly growing on right cheek since 3 weeks - Denies fever, redness on the right cheek - On physical examination, noted mild tenderness and hard on palpation - Face CT showed extensive bone destruction involving the right mandible with associated soft tissue involving inside and outside of the mandible Plan - Started on Zosyn 3.375 g every 12 hourly - Underwent biopsy today, pending results # Anemia, likely 2/2 blood loss - Hemoglobin in 10/2024 is 8.9 - At the time of presentation, hemoglobin is 7.4 - Patient is on Eliquis 2.5 Mg p.o. twice daily for atrial fibrillation - Noted bleeding manifestations in the oral cavity - 1 PRBC transfusion is done Plan -Held anticoagulation for now -Stool occult blood is ordered -will look for bleeding manifestations and transfuse as needed # Hypernatremia # Hyperkalemia, resolved - At the time of admission, sodium is 146, potassium is 5.6 -- 11/26 Na 147, K 4.6 - Patient received albuterol inhalation and Kayexalate in the ED Plan - Will replete/treat electrolytes as needed # ?UTI - Patient is not able to give appropriate history - Urinalysis showed 2+ proteinuria, 2+ blood, 1+ bilirubin, 182 RBC, 59 WBC, 1+ bacteria - Patient was started on Zosyn for right mandibular mass which will cover UTI # History of HFpEF - Patient is currently on diuretics and EF is 55 to 60% in 2023 - Repeat echo was ordered, EF 55-60%, RVSP 60 # History of A-fib, - Currently in afib but rate is well controlled - Patient is on Eliquis 2.5 Mg p.o. twice daily - Will hold Eliquis for now in view of pending renal biopsy # Torres's palsy # Parkinson's # Hypertension - Blood pressure is within normal limits since the hospital stay - Will monitor blood pressures and treat accordingly - Parkinson's and Torres's palsy appears to be chronic conditions and stable Hospital Maintenance: Dispo: Tele DVT ppx: SCD GI ppx: protonix Diet: Renal IV lines: Peripheral Code status: DNR Patient plan of care was discussed with the attending physician, Dr. Crespo and senior resident Dr. Servando Rosas, PGY1 Attending Provider Attestation/Addendum I have discussed and was present for the essential components of the history, physical examination, diagnosis, and treatment plan with the resident. I agree with the patient's care as documented by the resident and amended herein by me. Desmond Yu DO. Patient seen and evaluated this AM. No acute events overnight, vital signs stable, patient afebrile. Patient did have a rapid response in the morning for acute hypoxic respiratory failure, patient did receive a dose of Ativan prior to head CT which she did not tolerate, respiratory failure may be secondary to benzodiazepine hence flumazenil was given and the patient did improve within a few minutes. O2 saturations back in the low 90s. BUN 53, creatinine 25 this morning, per nephrology no renal biopsy will be performed, will continue to follow with cultures and hemodialysis per nephrology recommendations. We will however reattempt CT head for acute encephalopathy. Although this document has been carefully reviewed, there may still be some phonetic and other typographical errors. These errors are purely grammatical due to imperfections in the software program and should not be construed in any way to compromise the substance of the patient's medical care during this visit.
[2024-11-28 12:56] LABS: D-Dimer 1070 ng/mL (<600)
[2024-11-28] MEDS: LORazepam 2 MG/ML VIAL 1 MG IVP (14:02)
[2024-11-28] MEDS: NALOXONE INJ 1 MG/ML SYRINGE 2 ML IV ×2 (14:21→22:29)
[2024-11-28] MEDS: FLUMAZENIL INJ 0.1 MG/ML VIAL 10 ML 0.2 MG IVP (14:25)
--- NOTE | 2024-11-28 18:11 | PC.NURSE ---
Called Dr. Tucker, pt has not been alert/oriented to take PO meds, will hold Eliquis.
--- NOTE | 2024-11-28 19:30 | PD.IMPROG ---
Documentation for date of: 11/28/24 Subjective Subjective Interval history: Patient seen and examined at the bedside. Patient is completely lethargic and not elicitable during my examination. Patient is on Ventimask at 6 L/min and oxygen saturation is 100%. Upon examination patient appears to be hypercarbic and was noted 100% oxygen saturation and decreased oxygen to 3 L/min and recommended only saturations of 88 to 92% are at the maximal 95%. Discussed with the nurse and recommended stat ABG with the patient along with a chest x-ray for further evaluation. Discussed with the daughter at the bedside and patient apparently had rapid response after the dialysis yesterday and could only do 1 hour of dialysis and could not remove much and that she has not been awake today. Discussed with the family that we will follow-up with results of the ABG and chest x-ray. Patient is still fluid overloaded and will need further diuresis with dialysis but unfortunately patient is hypotensive Recommended to do further workup for sepsis also for the patient and will need probable transfer for on dopamine dialysis. Primary team to discuss the goals of care. Exam Vital Signs Temp Pulse Resp BP Pulse Ox O2 Del Method O2 Flow Rate 97.5 F 108 H 25 H 114/62 94 L Oxy Mask 2 11/28/24 21:55 11/28/24 22:22 11/28/24 22:22 11/28/24 21:55 11/28/24 22:22 11/28/24 20:00 11/28/24 21:55 FiO2 60 11/28/24 22:22 Narrative Exam General Appearance: Elderly female lying in bed and look completely lethargic and not arousable HEENT: Skull symmetrical and atraumatic. Conjunctivae pale and moist. Pupils equal, round, reactive to light and accommodation (PERRL). Mucosa moist Cardio: Normal Rate and Rhythm with S1 and S2 heart sounds. 2/6 systolic murmur the apex, no bruits on carotid auscultation. Peripheral edema, 2+ Lungs: Bilateral air entry present but significantly decreased in the middle and the lower zones Extremities: At least 2-3+ edema including sacral edema Abdomen: Non-tender, Non-distended, Normal Reactive Bowel Sounds Neuro: Lethargic and not arousable. Limited neuroexam Objective Labs 11/28/24 21:49 11/28/24 21:49 Labs: Laboratory Results - last 24 hr 11/28/24 11/28/24 11/28/24 05:15 21:49 21:52 WBC 8.8 D 11.5 H RBC 2.44 L 2.72 L Hgb 7.7 L 8.5 L Hct 23.3 L 26.3 L MCV 96 97 MCH 31.6 31.3 MCHC 33.0 32.3 RDW Std Deviation 66.6 H 67.5 H Plt Count 208 167 D Neut % (Auto) 66 65 Lymph % (Auto) 15 22 [place] % (Auto) 15 H 7 Eos % (Auto) 1 1 Baso % (Auto) 0 0 Neut # (Auto) 5.8 7.5 Lymph # (Auto) 1.3 2.5 [place] # (Auto) 1.3 H 0.8 Eos # (Auto) 0.1 0.1 Baso # (Auto) 0.0 0.1 Immature Gran # (Auto) 0.37 H 0.59 H Absolute Nucleated RBC 0.53 H 0.85 H Immature Gran % 4 H 5 H Nucleated RBC % 6 H 7 H Smear Path Review Sent to Pathologist D-Dimer 1070 H Puncture Site Right Radial ABG pH 7.06 L* ABG pCO2 94 H* ABG pO2 118 H ABG HCO3 26 ABG O2 Saturation 99 H ABG Base Excess -5 L FiO2 100 Sodium 142 142 Potassium 4.1 5.2 H D Chloride 104 104 Carbon Dioxide 25.4 22.8 Anion Gap 13 15 BUN 53 H 48 H Creatinine 2.5 H D 3.2 H D Estim Creat Clear Calc Not Performed. Not Performed. eGFR 19 L 14 L* BUN/Creatinine Ratio 21 H 15 Glucose 80 89 Calculated Osmolality 296 H 294 Lactic Acid 1.0 Calcium 9.0 8.8 Corrected Calcium 9.4 9.1 Phosphorus 6.0 H Magnesium 1.8 Total Bilirubin 0.8 0.7 AST 35 H 40 H ALT 7 L 7 L Alkaline Phosphatase 30 L 32 L Troponin I 0.031 Total Protein 5.2 L 5.3 L Albumin 3.5 3.6 Globulin 1.7 L 1.7 L Albumin/Globulin Ratio 2.1 2.1 ABG Interpretation ABG results: 11/27/24 11/28/24 11:40 21:52 ABG pH 7.06 L* ABG pCO2 94 H* ABG pO2 118 H ABG HCO3 26 ABG O2 Saturation 99 H ABG Base Excess -5 L VBG pH 7.35 VBG pCO2 46 VBG pO2 112 H VBG Base Excess -1 Assessment & Plan A&P Narrative 84 year old female with past medical history of hypertension, Atrial fibrillation on eliquis, CHF HpEF 55-60%, Parkinson's and hypothyroidism. Patient presented to the emergency with a worsneing JANEY, sent by Economic Analysis Director, Dr. Anne. Patient is hard of hearing and overall poor historian. Patient was alert and oriented during physical exam but unable to explain past medical history. Per chart review patinet presented with worsening dehydration and worsening cheek swelling. Patinet also noted to have lower extremity edema. Concern for acute encephalopathy on admission and CT obtained. Acute respiratory failure and appears to be hypercapnic respiratory failure Patient is completely lethargic and not elicitable during my examination. Patient is on Ventimask at 6 L/min and oxygen saturation is 100%. Upon examination patient appears to be hypercarbic and was noted 100% oxygen saturation and decreased oxygen to 3 L/min and recommended only saturations of 88 to 92% are at the maximal 95%. Discussed with the nurse and recommended stat ABG with the patient along with a chest x-ray for further evaluation. Discussed with the daughter at the bedside and patient apparently had rapid response after the dialysis yesterday and could only do 1 hour of dialysis and could not remove much and that she has not been awake today. Discussed with the family that we will follow-up with results of the ABG and chest x-ray. Patient is still fluid overloaded and will need further diuresis with dialysis but unfortunately patient is hypotensive Recommended to do further workup for sepsis also for the patient and will need probable transfer for on dopamine dialysis. Primary team to discuss the goals of care. #Acute on chronic Diastolic CHF exacerbation - HFpEF with EF of 55-60% #Grade 1 diastolic dysfunction #PAH RSVP >60 Patient presented with worsening peripheral edema with BNP 460 and Chest x-ray some vascular congestion on right lung field. 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 11/26/2024 Decreased urine output based on weight, continue additional day of bumex and albumin. INs 780/Out 225/ Net 555 Echo (11/24/2024): Normal left ventricular size and function. Estimated EF at 55-60 %. Grade 1 diastolic dysfunction. Mildly dilated RV with normal RV systolic function. Moderate PAH with an RVSP > 60 mm hg. Moderate TR. Mild MR, Mild MAC. Moderate AV sclerosis without stenosis. No Pericardial effusion. Cxr: noted for left base pneumonia. MIld vascular congestion noted. BNP 460 Lipid Panel 81, Cholesterol 127, LDL 56, HDl 55 TSH (11/26/2024): 2.92 A1c (02/22/2024) 5.0 Plan - Started on diuresis but did not respond well and now on dialysis - Continue dialysis if blood pressure stable required use pressors. -Consider Fluid Restriction and Na restriction -Holding off GDMT, including Coreg given soft blood pressure and diuresis -K>4 and Mg >2 - Nephrology following #Acute Kidney Failure on dialysis #JANEY on CKD IIIb #Hypernatremia #Hyperkalemia, resolved. Patient has a past medical history of CKD with best Cr baseline of 1.3, GFR of 41, and BUN 77 (10/29/2024). Presented with Cr of 2.5 thus Cr >0.3 change and likely JANEY. BUN/CR ratio of 59 indicating pre-renal injury. FeNa noted to be 0.1% thus indicating pre-renal, consider cardio-renal vs worsening CKD vs monitor for signs of intrinsic failure Renal US (11/24/2024): Mild bilateral renal parenchymal scar formation, small left kidney Hep Panel Negative Plan -Nephrology following and dialysis started with right-sided tunneled dialysis catheter -Pending renal biopsy -TIP, and HIV -pending -Renally dose medication -avoid nephrotoxins #History of Atrial Fibrillation Plan -Holding Eliquis 2.5 mg BID given increased risk of bleeding and holding Carvedilol Day 2 of holding off Eliquis. #Hypertension Currently holding home medication given soft blood pressure. Plan -Hold Amlodipine, Hydralazine 25 mg PO TID, and Lisinopril 20 mg qday -Patient would benefit form medication reconciliation as BP has been within normal range with only two intances of systolic BP of 170s. #Hematuria: UA noted to have protein 2+, urine Blood 2+, and 182 H RBCs, given elevated protein, nephro concern for Nephrotic vs malignancy. CK 232; UA Protien 2+, Blood 2+, Esterase +, RBC 182, WBC 59, Squamous 8 Plan -NPO after midnight -Renal biopsy #UTI Patinet on arrival presented with acute encephlopathy likely in the setting UTI as UA noted to be hazy, esterase positive, and WBC positive vs less likely secondary to pneumonia as no wheezing or rhnochi noted on physical, mild crackles noted during physical exam. NO pyrexia reported. 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 Hope. - Zosyn 3.375 g every 12 hourly -Manidbular Wound Tissue: pending -Coagulation study for mandible and renal biopsy #Normocytic Anemia Over the past several months, patient Hgb continues to drop likley in the setting of iron deficiency vs hematuria vs anemia of chronic disease vs anemia of CKD. Plan -Pending occult stool -Consider Iron panel -Consider Lead levels in the setting of bleeding gums (bleeding gums likely in the setting of mandible mass and less likely to lead) -Consider resuming iron tablets form home medicaton list -EPO via Nephro -s/p 1 transfusion #Hypothyroidism Past medical history of hypothyrodism, on Levothyroxine Plan -TSH AM -Consider resuming medication #Acute Encephalopathy, resolved. likely metabolic in nature given uremia vs infectious given UTI vs Pneumonia vs stroke #History of Torres's Palsy #History of Parkinson's Disease Health Maintenance: Disp: Pt is currently admitted to floors for further management of JANEY on CKD, Mass, and CHF exacerbation, cardiology consulted. FEN: NPO, Plan for multiple biopsy (Renal Diet) DVT: Holding GI: Protonix Code: DNR - Management of rest of the medical conditions as per primary team and other consultants. Thank you for the consult and allowing me to participate in the care of the patient. Cardiology will continue to follow. Ra Millan M.D. Interventional Cardiology Time Spent With Patient Time: Total time spent is greater than 50% in coordination of care (as documented) at patient's floor/unit and/or counseling patient:
--- NOTE | 2024-11-28 21:35 | PC.NURSE ---
@ 0358 at patients bedside, noticed agonal breathing, patient not responsive to sternal rubs and pain, informed my charge nurse and rapid response initiated.
--- NOTE | 2024-11-28 21:47 | XR_ITS ---
Examination: AP chest single view TECHNIQUE: AP portable semiupright chest single view Date and time: November 28, 2024 2154 hours Comparison November 27, 2024 INDICATIONS: Shortness of breath today. FINDINGS: Prominent CHF Enlarged cardiac contour with prominent vascular congestion and perihilar edema, large bilateral pleural effusions Right internal jugular dialysis catheter tip satisfactory position 35 mm rounded density in the right upper lobe which may be artifactual, clinical correlation is advised IMPRESSION: Prominent CHF with large bilateral pleural effusions
--- NOTE | 2024-11-28 21:47 | EKG_ITS ---
[facility] Test Date: 2024-11-28 Pat Name: JOSE LUCAS [facility] Gender: Female [employer] System Administrator: JERIJOSE CARLOS : 1940 Requested By: Dread Melgoza Order Number: [id number] Reading MD: Dread Melgoza Measurements Intervals Olla Rate: 100 P: CO: QRS: -13 QRSD: 93 T: 5 QT: 338 QTc: 437 Interpretive Statements ATRIAL FIBRILLATION WITH RAPID VENTRICULAR RESPONSE LOW QRS VOLTAGE IN PRECORDIAL LEADS POSSIBLE ANTERIOR MYOCARDIAL INFARCTION , PROBABLY OLD ABNORMAL RHYTHM ECG Compared to ECG 11/27/2024 11:30:07 Sinus tachycardia no longer present Ventricular premature complex(es) no longer present Myocardial infarct finding still present /store/[id number]
[2024-11-28 22:03] LABS: Base Excess -5 (-3-3); HCO3 26 mEq/L (20-26); Inspired Oxygen, FIO2 100 %; O2 Saturation 99 % (91-98); PCO2 94 mmHg (32.0-48.0); PO2 118 mmHg (83-108)
[2024-11-28 22:04] LABS: Basophils # (Auto) 0.1 Thou/mm3 (0.0-0.2); Basophils % (Auto) 0 % (0-2.5); Eosinophils # (Auto) 0.1 Thou/mm3 (0.0-0.5); Eosinophils % (Auto) 1 % (0-10); Hematocrit 26.3 % (36.0-46.0); Immature Granulocytes % (Auto) 5 % (0-0); Immature Granulocytes Auto 0.59 Thou/mm3 (0.00-0.00); Lymphocytes # (Auto) 2.5 Thou/mm3 (1.0-4.8); Lymphocytes % (Auto) 22 % (10-50); Mean Corpuscular HGB Conc 32.3 g/dl (31.0-37.0); Mean Corpuscular Hemoglobin 31.3 pg (25.0-35.0); Mean Corpuscular Volume 97 fL (80-100); Monocytes # (Auto) 0.8 Thou/mm3 (0.0-0.8); Monocytes % (Auto) 7 % (0-12); Neutrophils # (Auto) 7.5 Thou/mm3 (1.8-7.7); Neutrophils % (Auto) 65 % (37-80); Nucleated Red Blood Cell # 0.85 Thou/mm3 (0.00-0.00); Nucleated Red Blood Cell % 7 /100 WBC (0); Platelet Count 167 Thou/mm3 (140-440); RDW Standard Deviation 67.5 fL (36.4-46.3); Red Blood Count 2.72 Miln/mm3 (4.00-5.20); White Blood Count 11.5 Thou/mm3 (3.6-11.0)
[2024-11-28 22:04] LABS: Allen Test Performed/OK; Puncture Site Right Radial; pH, Arterial 7.06 (7.35-7.45)
[2024-11-28 22:23] LABS: Hemoglobin 8.5 g/dL (12.0-16.0)
--- NOTE | 2024-11-28 22:27 | PD.RESEVENT ---
Documentation for date of: 11/28/24 Event Note Event Note: Rapid response was called at 2155 due to increased work of breathing and tachycardia On my arrival patient was on oxy mask with increased work of breathing as well as what seems to be agonal breathing. Vitals: BP 95/52, heart rate 114, respiratory rate 26+, saturating 96-97% on oxy mask, GCS of 3 (E: 1, V: 1, M: 1) unarousable by severe sternal rub done by myself and nursing staff. Spoke to the family and they want to continue the patient being DNR/DNI as per the patient's wishes. Placed the patient on BiPAP, ordered ABGs, chest x-ray, CBC, CMP, lactic acid, EKG, troponins. Bedside ultrasound was done to assess for fluid overload in the lung pichardo, but intra-abdominal fluid cannot be assessed due to body habitus. Prior to Bipap ABG showed pH of 7.06 and PCO2 of 94, chest x-ray shows per my interpretation shows possible bilateral pleural effusions more pronounced on the right compared to the left. Spoke to nephrology in regards to emergent dialysis, however nephrology states patient will likely not tolerate dialysis sessions as previous sessions patient has been unable to have even 1 L removed due to labile blood pressure. Ordered Bumex however patient barely makes any urine and considering blood pressure is on the lower side 95/52 will hold off at this time. Family will come see the patient and they will consider transitioning to comfort care. Pending Family meeting. Second set of ABGs came back showed some improvement pH of 7.21, pCO2 of 68 while on BiPAP. Spoke to the family in regards to the patient's clinical status and while there was some improvement in ABGs she continues with agonal breathing and continues with a GCS of 3. Given the slight improvement in acid-base status gave the family the option of keeping the patient on BiPAP and continue to monitor her clinical status however they stated they did not want the patient to continue to suffer and would like to pursue comfort care. All findings were explained to the family all questions were answered and given her very poor prognosis, family decided to pursue comfort care. Physical Exam GENERAL: Acute distress, GCS 3 (E: 1, V: 1, M: 1), anasarca HEENT: Moist mucosa. CARDIO: Heart RRR, no obvious murmurs PULM: dyspnea, decreased breath sounds R>>L GI: Abdomen soft, nondistended, no pain on palpation. BS-appreciated SKIN/MSK/EXT: edema on all 4 extremities +2, flaccid extremities, no pain on palpation. Pedal pulses present B/L Case discussed with my attending Dr. Patrick Marti MD PGY-1
[2024-11-28 22:45] LABS: Alanine Aminotransferase 7 U/L (10-49); Albumin, Serum 3.6 gm/dL (3.4-4.8); Albumin/Globulin Ratio 2.1 (1.2-2.2); Alkaline Phosphatase 32 U/L (46-116); Anion Gap 15 (7-16); Aspartate Amino Transferase 40 U/L (0-34); BUN/Creatinine Ratio 15 Ratio (12-20); Bilirubin,Total 0.7 mg/dL (0.3-1.2); Blood Urea Nitrogen 48 mg/dL (9-23); Calcium 8.8 mg/dL (8.3-10.6); Calcium (Corrected) 9.1 mg/dL (8.5-10.1); Carbon Dioxide 22.8 mMol/L (20.0-31.0); Chloride 104 mMol/L (98-107); Creatinine (Component) 3.2 mg/dL (0.6-1.3); Globulin 1.7 gm/dL (2.3-3.5); Glucose 89 mg/dL (74-106); Osmolality,Calculated 294 (275-295); Potassium 5.2 mMol/L (3.4-5.1); Sodium 142 mMol/L (136-145); Total Protein 5.3 gm/dL (5.7-8.2); Troponin I 0.031 ng/mL (0.0-0.045); eGFR 14 See Note
--- NOTE | 2024-11-28 23:54 | PC.RT ---
ABG DONE AT THIS TIME FAMILY AT BEDSIDE.
[2024-11-28 23:56] LABS: Base Excess -4 (-3-3); HCO3 25 mEq/L (20-26); Inspired Oxygen, FIO2 60 %; O2 Saturation 99 % (91-98); PCO2 68 mmHg (32.0-48.0); PO2 105 mmHg (83-108)
[2024-11-29] VITALS: BP 100/59; PULSE 100; PULSE 110; RESP 15; TEMP 36.1; O2SAT 99
[2024-11-29] LABS: Allen Test Performed/OK; Puncture Site Right Radial; pH, Arterial 7.21 (7.35-7.45)
--- NOTE | 2024-11-29 00:07 | PC.RT ---
Dr. House made aware of abg results
--- NOTE | 2024-11-29 02:00 | PC.NURSE ---
[employer] called due to pt GCS 5. cxr, labs, ekg ordered. Narcan 1mg ordered with no change. family called and notified by MD, pt transitioned to comfort care.
[2024-11-29] MEDS: Morphine IV Drip 100mg/100ml 100 ML IV (02:39)
[2024-11-29] MEDS: SCOPOLAMINE 1 MG TDSY TOP (02:58)
[2024-11-29] MEDS: MORPHINE SULF INJ 10 MG/ML VIAL IVP ×2 (02:58→04:40)
[2024-11-29 03:05] VITALS: PULSE 104; RESP 18; O2SAT 100
[2024-11-29 04:00] VITALS: PULSE 100; PULSE 95; RESP 18; O2SAT 100
--- NOTE | 2024-11-29 09:19 | ESPR_ITS ---
Documentation for date of: 11/29/24 Subjective Subjective Interval history: Cheri is a 84-year-old female with past medical history of HFpEF (EF:50-55%), hypertension, Torres's palsy, Parkinson's, CKD, Afib (on Eliquis) who comes in for an evaluation after labs had revealed the patient's kidney function was altered. Patient comes from nursing facility and was found to have elevated creatinine. Patient was recently put into the [place] [facility] about a month ago and this was because of recurrent falls and lack of support at home. While at the [place] [facility], patient has been having poor oral intake. It is unknown if patient is having poor oral intake due to appetite or if a possible mass in her right mandibular area is affecting her. Patient says that she is not having any symptoms, however says she has not eaten in about 4 to 5 days, is unsure if its her appetite. She denies any vomiting, nausea, diarrhea, abdominal pain, chest pain or shortness of breath. Patient has been using oxygen however at the nursing facility and is unsure why. Patient's mold yarn supervisor is Dr. Reynolds. She was told by her heart doctor and her primary care doctor to limit her fluid intake. She takes her medicines as prescribed. Family present at bedside says that they are not allowed to receive information about her health care unless it is approved by her. The son of the patient is currently working on power of trade mark attorney for the patient at this time. No other complaints at this time. Denies a history of urinary retention. Patient was recently discharged from the hospital in October for JANEY and uremia and similar symptoms. 11/25/2024: Patient examined at bedside today. No acute overnight events. Patient's sodium 147, potassium 5, BUN/creatinine 143 and 2.5 respectively, blood glucose 87, white count 6.2, hemoglobin 7.8, phosphorus 6.9, magnesium 1.8, urine sodium 15, urine urea 377, urine creatinine 179. Patient's renal labs did not improve, and patient's creatine kinase was elevated as well. Due to patient's longstanding history of hematuria, patient may benefit from renal biopsy for diagnosis of possible nephrotic syndrome. Patient cannot receive fluids at this time or diuresis due to kidney injury. Patient is agreeable with procedure. 11/26/2024: Patient examined at bedside today. No acute overnight events. Urine output 225 mL over past 24 hours, BUN/creatinine 145 and 2.9 respectively, potassium 4.6, white count 6.2, hemoglobin 7.5, phosphorus 7, magnesium 1.8, calcium 8.8, HIV negative, hepatitis panel negative, hepatitis C negative. Patient is agreeable to getting biopsy of the right jaw, kidney and to put dialysis catheter in today. She will get her first dialysis session today. No other complaints at this time. For 11/27/2024: Patient examined at bedside today. No acute overnight events. Patient is going to get dialysis today. Urine output 7 mL past 24 hours. BUN/creatinine 79 2.7 respectively, potassium 1.6, white count 6, hemoglobin 10.6, magnesium 1.8, phosphorus 6.3, calcium 8.8. Patient to get Kidney biopsy Friday. 11/28/2024 daughter, friend at bedside. Patient unable to even open her eyes. Barely arousable. CT brain pending. Blood pressure 130/63, heart rate 92. Hemoglobin 7.7. Sodium 142, potassium 4.1, creatinine 2.5, calcium 9.4, phosphorus 6, magnesium 1.8, LFTs normal, troponin tad elevated. 11/29/2024 patient evaluated bedside, somnolent and drowsy, currently on comfort care measures. Family at bedside. Worsening renal function, no further hemodialysis indicated as patient was unable to tolerate hemodialysis during previous session. Exam Vital Signs Temp Pulse Resp BP Pulse Ox O2 Del Method O2 Flow Rate 97.0 F 100 18 100/59 L 100 Oxy Mask 2 11/29/24 00:00 11/29/24 04:00 11/29/24 04:00 11/29/24 00:00 11/29/24 04:00 11/29/24 04:00 11/29/24 04:00 FiO2 60 11/29/24 04:00 Narrative Exam General Appearance: Elderly female lying in bed and look completely lethargic and not arousable HEENT: Skull symmetrical and atraumatic. Conjunctivae pale and moist. Pupils equal, round, reactive to light and accommodation (PERRL). Mucosa moist Cardio: Normal Rate and Rhythm with S1 and S2 heart sounds. 2/6 systolic murmur the apex, no bruits on carotid auscultation. Peripheral edema, 2+ Lungs: Bilateral air entry present but significantly decreased in the middle and the lower zones Extremities: At least 2-3+ edema including sacral edema Abdomen: Non-tender, Non-distended, Normal Reactive Bowel Sounds Neuro: Lethargic and not arousable. Limited neuroexam Objective Labs 11/28/24 21:49 11/28/24 21:49 Labs: Laboratory Results - last 24 hr 11/28/24 11/28/24 11/28/24 05:15 21:49 21:52 WBC 11.5 H RBC 2.72 L Hgb 8.5 L Hct 26.3 L MCV 97 MCH 31.3 MCHC 32.3 RDW Std Deviation 67.5 H Plt Count 167 D Neut % (Auto) 65 Lymph % (Auto) 22 Nobles % (Auto) 7 Eos % (Auto) 1 Baso % (Auto) 0 Neut # (Auto) 7.5 Lymph # (Auto) 2.5 Nobles # (Auto) 0.8 Eos # (Auto) 0.1 Baso # (Auto) 0.1 Immature Gran # (Auto) 0.59 H Absolute Nucleated RBC 0.85 H Immature Gran % 5 H Nucleated RBC % 7 H D-Dimer 1070 H Puncture Site Right Radial ABG pH 7.06 L* ABG pCO2 94 H* ABG pO2 118 H ABG HCO3 26 ABG O2 Saturation 99 H ABG Base Excess -5 L FiO2 100 Sodium 142 Potassium 5.2 H D Chloride 104 Carbon Dioxide 22.8 Anion Gap 15 BUN 48 H Creatinine 3.2 H D Estim Creat Clear Calc Not Performed. eGFR 14 L* BUN/Creatinine Ratio 15 Glucose 89 Calculated Osmolality 294 Lactic Acid 1.0 Calcium 8.8 Corrected Calcium 9.1 Total Bilirubin 0.7 AST 40 H ALT 7 L Alkaline Phosphatase 32 L Troponin I 0.031 Total Protein 5.3 L Albumin 3.6 Globulin 1.7 L Albumin/Globulin Ratio 2.1 11/28/24 23:48 WBC RBC Hgb Hct MCV MCH MCHC RDW Std Deviation Plt Count Neut % (Auto) Lymph % (Auto) Nobles % (Auto) Eos % (Auto) Baso % (Auto) Neut # (Auto) Lymph # (Auto) Nobles # (Auto) Eos # (Auto) Baso # (Auto) Immature Gran # (Auto) Absolute Nucleated RBC Immature Gran % Nucleated RBC % D-Dimer Puncture Site Right Radial ABG pH 7.21 L D ABG pCO2 68 H D ABG pO2 105 ABG HCO3 25 ABG O2 Saturation 99 H ABG Base Excess -4 L FiO2 60 Sodium Potassium Chloride Carbon Dioxide Anion Gap BUN Creatinine Estim Creat Clear Calc eGFR BUN/Creatinine Ratio Glucose Calculated Osmolality Lactic Acid Calcium Corrected Calcium Total Bilirubin AST ALT Alkaline Phosphatase Troponin I Total Protein Albumin Globulin Albumin/Globulin Ratio ABG Interpretation ABG results: 11/27/24 11/28/24 11/28/24 11:40 21:52 23:48 ABG pH 7.06 L* 7.21 L D ABG pCO2 94 H* 68 H D ABG pO2 118 H 105 ABG HCO3 26 25 ABG O2 Saturation 99 H 99 H ABG Base Excess -5 L -4 L VBG pH 7.35 VBG pCO2 46 VBG pO2 112 H VBG Base Excess -1 Quality Measures Quality Measures none Advance care planning discussed with:: patient Assessment & Plan Assessment Current Active Medications: Generic Name Dose Route Start Last Admin Trade Name Freq PRN Reason Stop Dose Admin Atropine Sulfate 2 drop 11/29/24 01:33 Atropine Sulf Op Ciarra 1% 5 Ml Btl SL 12/29/24 01:32 Q4HR PRN SECRETIONS Heparin Sodium (Porcine) 3,800 unit 11/26/24 16:48 Heparin Sod Inj 1000 Unit/Ml Vial 10 Ml INDWELLCAT 12/10/24 16:47 X1 PRN DIALYSIS Morphine Sulfate 100 mls @ 1 mls/hr 11/29/24 01:33 11/29/24 04:42 Morphine Sulfate Iv Drip 100mg/100ml IV 12/04/24 01:32 2 mg/hr .Q24H PRN 2 mls/hr PAIN (COMFORT CARE) Titration Protocol 1 MG/HR Morphine Sulfate 1 mg 11/29/24 02:45 11/29/24 04:40 Morphine Sulf Inj 10 Mg/Ml Vial IVP 1 mg Q1H PRN Administration COMFORT CARE Ondansetron HCl 4 mg 11/24/24 15:47 11/25/24 13:38 Ondansetron Inj 2 Mg/Ml Inj 2 Ml IVP 12/24/24 15:46 4 mg Q6H PRN Administration NAUSEA OR VOMITING Protocol Scopolamine 1 mg 11/29/24 01:45 11/29/24 02:58 Scopolamine 1 Mg Tdsy TOP 12/29/24 01:44 1 mg Q3D PRINCESS Administration Plan Cheri is a 84-year-old female with past medical history of HFpEF (EF:50-55%), hypertension, Torres's palsy, Parkinson's, CKD, Afib (on Eliquis) who is currently admitted for JANEY and uremia. #Acute kidney injury on CKD stage IIIb #Anasarca, improving #? Cardiorenal syndrome Suspect intrinsic versus ischemic ATN from underlying cardiorenal syndrome. Patient ended up on dialysis. Did receive 2-day dialysis sessions. Currently she seems to be very altered after the second session. Question dialysis disequilibrium although blood flow was minimal during second session. CT brain ordered. ?After goals of care with primary team, CODE STATUS changed to DNR and patient placed on comfort care measures. No aggressive intervention indicated. #UTI Patient may be colonized at this point, however shows WBCs, shows bacteria shows leukocyte esterase Previous cultures are Proteus and Klebsiella that do appear to be mainly pansensitive Plan: ?On comfort care measures #Hematuria DDx: Nephritic syndrome, IgA nephropathy or bladder malignancy Patient could also have rhabdo as well as patient has RBCs Owing to her fragility-hold off on biopsy #Normocytic anemia Likely anemia of chronic disease Hgb 7.7 S/p Epogen and Ferumoxytol x1 Plan: ?Management per primary team #Facial mass, R side-status post biopsy #Hypertension #Hyperlipidemia #A-fib #Torres's palsy #HFpEF Above managed by primary hospitalist team Plan of care discussed with attending Dr. Omid Méndez pgy2 Attending Provider Attestation/Addendum Patient seen and examined with resident physician Dr. Méndez. Note reviewed, agree with findings and recommendations. Patient's prognosis very poor. seems to be imminent. Family aware and is requesting comfort care.
--- NOTE | 2024-11-29 09:45 | PD.DDS ---
Documentation for date of: 11/29/24 Summary Date and Time Date of admission: 11/24/24 15:47 Date of : 11/29/24 Time of : 07:54 Summary Hospital Course: A 84-year-old female with past medical history of HFpEF 50-55%, hypertension, Torres's palsy, Parkinson's, atrial fibrillation on Eliquis, recent hospitalization for dehydration and acute kidney injury presented to the hospital with chief complaints of lethargy since 2 days and swelling in the right cheek since 3 weeks and admitted for Right mandibular mass and Acute kidney injury Hospital course: Vitals are stable at the time of admission. Labs at the time of admission showed hemoglobin 7.4, platelets 266, sodium 146, potassium 5.6, chloride 108, BUN 148, anion gap 17, creatinine 2.5, BNP 460, albumin 3.4, procalcitonin 0.25. Urinalysis showed 2+ proteinuria, 2+ blood, 1+ bilirubin, 182 RBC, 59 WBC, 1+ bacteria. Chest x-ray showed bilateral patchy infiltrates. Face CT showed extensive bone destruction involving the right mandible with associated soft tissue involving inside and outside of the mandible. Manager Club, Dr. Anne and Metal Finish Inspector Dr. Millan is consulted, appreciated their recommendations. Patient was initially given albumin and diuresed but as the renal functions and uremia got worsened, patient was started on HD. Patient underwent biopsy of right mandibular mass by Dr. Bird. Initial HD was done on 11/26/2024, second session was done on 11/27/2024 following which patient became drowsy and altered, rapid response was called on the day for tachycardia. Later patient vitals were stabilized. Patient was supposed to get third session of dialysis on 11/28/2024 but HD was held because of her clinical condition. On same day, around 10 PM, rapid was called on patient for increased work of breathing and tachycardia, patient was found to be unresponsive and her GCS is 3, nephrology was consulted for emergent HD but patient vitals are unstable for tolerating HD. Patient was started on BiPAP at the time in view of CO2 retention and respiratory acidosis. Goals of care discussion were done with the family at that time and patient was started on comfort care given her poor prognosis. Received a call from nurse on 11/29/2024 at 7:52 AM. Patient was seen at the bedside with GCS 3, absent heart and breath sounds. Pupils are dilated and unresponsive to light. Patient was declared on 11/29/2024 at 7:54 AM. Family is at the bedside and informed them Discussed with the attending physician, Dr. Gigi Rosas, PGY1 Additional Data Attending physician: Jazmín Macias, DO Visit Providers Provider Primary care physician: Kurt Woody MD Consults: 11/24/24 14:02 Consult to Nephrology Stat Comment: JANEY Consulting Provider: Maico Anne 11/24/24 14:58 Consult to Otolaryngology(Head and Neck) Stat Comment: Consulting Provider: Sukhwinder Hope 11/25/24 07:14 Consult to Cardiology Routine Comment: Consulting Provider: Ra Millan Discharge Plan Plan Patient Disposition: Prescriptions/Referrals Referrals: Kurt Woody MD [Primary Care Provider] - Patient/Caregiver Discharge Instructions Print Language: [place] Discharge Order Discharge Orders: Discharge (Routine); Ordered 11/29/24 Ordered By: Yang Rosas
[2024-12-02 06:42] LABS: ANA Pattern MITOTIC, CHROMOSOMAL; ANA Screen, IFA POSITIVE (NEGATIVE)
[2024-12-02 06:43] LABS: ANCA Screen NEGATIVE (NEGATIVE); Complement Component C3* 52 mg/dL; Complement Component C4c* 39 mg/dL; Myeloperoxidase Ab <1.0 AI (<1.0); Proteinase-3 Ab <1.0 AI (<1.0)
== END 2024-11-29 07:54 | disposition expired | DRG 673 ==
LOC: SERX 15:19 → SERHOLD 16:07 → S2NX 20:24
PROVIDERS: Internal Medicine; Nurse Practitioner Family; Student in an Organized Health Care Education/Training Program; Admitting Provider Internal Medicine; Emergency Provider Emergency Medicine; PCP Family Medicine; Visit Provider Internal Medicine
DX: N17.9 Acute kidney failure, unspecified (principal); G93.41 Metabolic encephalopathy; I50.33 Acute on chronic diastolic (congestive) heart failure; J18.9 Pneumonia, unspecified organism; J96.01 Acute respiratory failure with hypoxia; I13.0 Hypertensive heart and chronic kidney disease with heart failure and stage 1 through stage 4 chronic kidney disease, or unspecified chronic kidney disease; I50.32 Chronic diastolic (congestive) heart failure; N39.0 Urinary tract infection, site not specified; E87.0 Hyperosmolality and hypernatremia; E87.1 Hypo-osmolality and hyponatremia; E87.29 Other acidosis; I42.9 Cardiomyopathy, unspecified; N18.32 Chronic kidney disease, stage 3b; G20.A1 Parkinson's disease without dyskinesia, without mention of fluctuations; Z79.01 Long term (current) use of anticoagulants; I48.91 Unspecified atrial fibrillation; Z74.01 Bed confinement status; M89.8X8 Other specified disorders of bone, other site; D50.0 Iron deficiency anemia secondary to blood loss (chronic); E87.5 Hyperkalemia; Z66 Do not resuscitate; R31.9 Hematuria, unspecified; R22.0 Localized swelling, mass and lump, head; E78.5 Hyperlipidemia, unspecified; D63.1 Anemia in chronic kidney disease; D69.2 Other nonthrombocytopenic purpura; E03.9 Hypothyroidism, unspecified; E66.9 Obesity, unspecified; E83.39 Other disorders of phosphorus metabolism; E86.0 Dehydration; E88.09 Other disorders of plasma-protein metabolism, not elsewhere classified; I48.0 Paroxysmal atrial fibrillation; Z51.5 Encounter for palliative care; Z79.82 Long term (current) use of aspirin; Z79.890 Hormone replacement therapy; Z79.899 Other long term (current) drug therapy; Z99.2 Dependence on renal dialysis; G51.0 Bell's palsy; H91.90 Unspecified hearing loss, unspecified ear; N27.0 Small kidney, unilateral; H57.04 Mydriasis
CPT/HCPCS: 36415; 36430; 36600; 70486; 71045; 76770; 76937; 77001; 77012; 80048; 80053; 80069; 80074; 81001; 82436; 82550; 82570; 82803; 83605; 83690; 83735; 83880; 84100; 84133; 84145; 84300; 84443; 84484; 84540; 85025; 85379; 85610; 85730; 86021; 86036; 86038; 86160; 86580; 86703; 86850; 86900; 86901; 86923; 87040; 87070; 87075; 87081; 87086; 87102; 87106; 87116; 87205; 87206; 87811; 93005; 93306; 93970; 94640; 94660; 94664; 96365; 96366; 96367; 99285; C1894; J1643; J1956; J2060; J2270; J2310; J2405; J2543; J3010; J3490; J7030; J7040; J7050; P9016; P9047; Q0138; Q5105; Q5106; A9270